=== PATIENT | male | born 1975 | race Caucasian/White ===

== ENCOUNTER 2016-11-22 07:52 | Observation (INO) ==
[2016-11-22] MEDS ORDERED: *HR* Morphine 2 MG/ML SYRINGE IVP ONE (08:10)
[2016-11-22] MEDS ORDERED: Ondansetron 4 MG/2 ML VIAL IV ONE (08:10)
[2016-11-22] MEDS ORDERED: 0.9 % Sodium Chloride 1,000 ML IVC ONE ×2 (08:10→13:42)
--- NOTE | 2016-11-22 08:18 | Emergency Department Note ---
Disposition Clinical Impression: Cholecystitis Disposition: Admitted As Inpatient Condition: Undetermined Time of Disposition: 19:05 Abdominal Pain HPI - General Chief Complaint: ED Abdominal Pain Stated Complaint: Abdominal Pain Time Seen by Provider: 11/22/16 07:53 Source: patient, EMS Mode of arrival: EMS Limitations: no limitations Nursing Notes Reviewed: Yes Vital Signs Reviewed: Yes - History of Present Illness HPI Narrative: 41-year-old male with history of chronic pancreatitis arrives to [facility] emergency department complaining of periumbilical pain that began yesterday. The patient states he has had 2 episodes of vomiting since then. The patient does admit to subjective fever and chills. The patient denies any diarrhea, chest pain, difficulty breathing, focalized weakness, cough , dysuria. The patient does state that he has had chronic pancreatitis in the past and has received multiple stents for this as well. The patient was also noted to have cholelithiasis on previous CT scan. The patient states he has had no appetite since STARTED. The patient states the pain feels similar to character to his pancreatitis pain but states it is in a different location than previous. In addition the patient has no other complaints at this time. Pt Subjective Complaint: abdominal pain Onset (ago): day(s) (1) Consistency: constant, Worsening Location: periumbilical Pain Severity: moderate Pain Scale: 8 Quality: aching, sharp Radiation: L flank Migration to: no migration Improves with: nothing Worsens with: nothing Context: history of similar episodes Associated symptoms: Reports: nausea, vomiting, fever, chills Treatments prior to arrival: prescription analgesics - Related Data Home Medications Medication Instructions Recorded Confirmed Ascorbic Acid [Vitamin C] 1,000 mg PO DAILY 07/04/16 11/22/16 Omeprazole 20 mg PO TID 07/04/16 11/22/16 Oxycodone HCl/Acetaminophen 1 tab PO Q4-6H PRN 07/04/16 11/22/16 [Percocet 5-325 mg Tablet] Vitamin A 10,000 unit PO DAILY 07/04/16 11/22/16 Vitamin B Complex 1 cap PO DAILY 07/04/16 11/22/16 Previous Rx's Medication Instructions Recorded Sucralfate [Carafate] 1 gm PO QIDAC #120 tablet 07/04/16 Allergies Allergy/AdvReac Type Severity Reaction Status Date / Time No Known Allergies Allergy Verified 07/04/16 08:39 Review of Systems: Review of Systems Constitutional: Admits to fevers, chills, HEENT: Denies headache, blurry vision, Respiratory: Denies cough, sputum change, hemoptysis, dyspnea Cardiac: Denies chest pain, pressure, palpitations, dyspnea on exertion, pedal edema Gastrointestinal: Denies changes in bowel habits, hematemesis, hematochezia, admits to nausea and vomiting, abdominal pain Genitourinary: Denies dysuria, hematuria, nocturia, change in frequency, urgency, incontinence Neurologic: Denies headaches, dizziness, syncope, focalized weakness, paraesthesias, weakness Musculoskeletal: Denies back pain, joint pain, admits to myalgias All systems ED: reviewed and negative except as stated. Abdominal Pain PMH - Past Medical History Medical history: Reports: arthritis, cirrhosis, GERD, liver disease, osteoporosis, other (Chronic pancreatitis, cholelithiasis) Male Surgical History: Reports: other (Pancreatic stents) Psychiatric history: Reports: no psych history - Social History Smoking status: Current some day smoker Alcohol use: Reports: none Drug use: Reports: none Physical Exam Physical Exam: General: Patient alert, no acute distress, not lethargic HEENT: Head normal inspection, atraumatic, PERRLA, oropharynx grossly intact and normal, trachea midline, no JVD Chest: Nontraumatic, nontender, normal chest rise CV: RRR with no murmurs, rubs, gallops Respiratory: Lungs clear to auscultation bilaterally, no rales, rhonchi, wheezes. Abdomen: Normal inspection, Normal bowel sounds 4 quadrants, patient has moderate tenderness to periumbilical region as well as left flank and left upper quadrant. The patient has a negative Adhikari sign, negative McBurney's. There is no rigidity or rebound tenderness noted. Subjective guarding noted. : Patient deferred Extremities: Normal inspection, full range of motion, appropriate pulses, capillary refill under 2 seconds Neurological: Patient alert and oriented 3, cranial nerves II through XII grossly intact, GCS 15 Skin: Warm, intact, no rashes noted - General General appearance: alert, in no apparent distress Course Course Narrative: Patient's lipase is not elevated this time. The patient does have a mildly elevated total bili at 1.5 as well as a mildly elevated AST. This is likely related to the patient's chronic cirrhosis and/or his vomiting. The patient does have a mildly elevated white blood cell count which could also be in part due to his vomiting. We will obtain CT scan of the patient's abdomen with IV contrast to determine if there is any other etiology for the patient's pain. Pain is controlled with IV morphine and nausea is controlled with Zofran. The patient does state that he did have a small amount of itching with the morphine so he was given IV Benadryl. In addition to this the patient was given IV fluids. Vital Signs Temperature 98.3 F 11/22/16 07:53 Pulse Rate 99 11/22/16 07:53 Respiratory Rate 18 11/22/16 07:53 Blood Pressure 117/78 11/22/16 07:53 O2 Sat by Pulse Oximetry 99 11/22/16 07:53 Temperature 98 F 11/22/16 14:20 Pulse Rate 83 11/22/16 14:20 Respiratory Rate 16 11/22/16 14:20 Blood Pressure 108/70 11/22/16 14:20 O2 Sat by Pulse Oximetry 99 11/22/16 14:20 Oxygen Delivery Oxygen Delivery Room Air Abdominal Pain - Lab Data Result diagrams: 11/22/16 08:14 11/22/16 08:14 Lab Results 11/22/16 11/22/16 11/22/16 Range/Units 08:14 08:14 08:14 WBC 14.8 H (4.3-11.1) K/mcL RBC 4.33 (4.19-5.50) M/mcL Hgb 14.6 (12.9-16.9) g/dL Hct 43.2 (37.5-50.1) % MCV 99.8 (83.0-100.0) fL MCH 33.7 H (28.0-33.3) pg MCHC 33.8 (31.6-35.5) g/dL RDW 12.7 (11.5-14.5) % Plt Count 176 (140-400) K/mcL MPV 10.2 (9.4-12.4) fL Immature Gran % 0.5 (0-4) % Seg Neutrophils % 78.8 % Lymphocytes % 14.0 % Monocytes % 6.0 % Eosinophils % 0.4 % Basophils % 0.3 % Neutrophils # 11.7 H (1.6-8.9) K/mcL Lymphocytes # 2.1 (0.6-4.6) K/mcL Monocytes # 0.9 (0.0-1.3) K/mcL Eosinophils # 0.1 (0.0-0.6) K/mcL Basophils # 0.1 (0.0-0.2) K/mcL PT (9.4-12.1) Seconds INR APTT (26.0-36.0) Seconds Sodium 135 L (136-145) mEq/L Potassium 3.9 (3.5-4.5) mEq/L Chloride 102 (98-109) mEq/L Carbon Dioxide 26 (19-29) mEq/L BUN 4 L (8-26) mg/dL Creatinine 0.57 L (0.72-1.25) mg/dL Est GFR ( Amer) > 60 (> 60) Est GFR (Non-Af Amer) > 60 (> 60) BUN/Creatinine Ratio 7 (6-26) Glucose 105 H (70-99) mg/dL Calculated Osmolality 277 L (280-300) Calcium 8.6 (8.6-10.8) mg/dL Total Bilirubin 1.5 H (0.2-1.2) mg/dL Direct Bilirubin 0.9 H (0.0-0.5) mg/dL AST 38 H (5-34) Units/L ALT 25 (0-55) Units/L Alkaline Phosphatase 203 H (38-126) Units/L Troponin I 0.01 (0-0.03) ng/mL Serum Total Protein 7.0 (6.0-8.3) g/dL Albumin 2.3 L (3.5-5.0) g/dL Globulin 4.7 H (2.4-3.5) g/dL Albumin/Globulin Ratio 0.5 L (1.1-2.2) Lipase 19 (8-78) Units/L Urine Color (Yellow) Urine Clarity (Clear) Urine pH (5.0-8.0) pH Units Ur Specific [place] (1.010-1.025) Urine Protein (Neg-Trace) mg/dL Urine Glucose (UA) (Normal) mg/dL Urine Ketones (Negative) mg/dL Urine Blood (Negative) Urine Nitrite (Negative) Urine Bilirubin (Negative) Urine Urobilinogen (Normal) mg/dL Ur Leukocyte Esterase (Negative) Urine Microscopic RBC (0-3) per hpf Urine Microscopic WBC (0-3) per hpf Ur Squamous Epith Cells (None-Few) per lpf Amorphous Sediment (Few) Urine Bacteria (None-Few) per hpf Hyaline Casts (None-Few) per lpf Urine Mucus (Few) Ur Culture Indicated? (NO) 11/22/16 11/22/16 Range/Units 08:14 08:35 WBC (4.3-11.1) K/mcL RBC (4.19-5.50) M/mcL Hgb (12.9-16.9) g/dL Hct (37.5-50.1) % MCV (83.0-100.0) fL MCH (28.0-33.3) pg MCHC (31.6-35.5) g/dL RDW (11.5-14.5) % Plt Count (140-400) K/mcL MPV (9.4-12.4) fL Immature Gran % (0-4) % Seg Neutrophils % % Lymphocytes % % Monocytes % % Eosinophils % % Basophils % % Neutrophils # (1.6-8.9) K/mcL Lymphocytes # (0.6-4.6) K/mcL Monocytes # (0.0-1.3) K/mcL Eosinophils # (0.0-0.6) K/mcL Basophils # (0.0-0.2) K/mcL PT 14.0 H (9.4-12.1) Seconds INR 1.3 APTT 31.2 (26.0-36.0) Seconds Sodium (136-145) mEq/L Potassium (3.5-4.5) mEq/L Chloride (98-109) mEq/L Carbon Dioxide (19-29) mEq/L BUN (8-26) mg/dL Creatinine (0.72-1.25) mg/dL Est GFR ( Amer) (> 60) Est GFR (Non-Af Amer) (> 60) BUN/Creatinine Ratio (6-26) Glucose (70-99) mg/dL Calculated Osmolality (280-300) Calcium (8.6-10.8) mg/dL Total Bilirubin (0.2-1.2) mg/dL Direct Bilirubin (0.0-0.5) mg/dL AST (5-34) Units/L ALT (0-55) Units/L Alkaline Phosphatase (38-126) Units/L Troponin I (0-0.03) ng/mL Serum Total Protein (6.0-8.3) g/dL Albumin (3.5-5.0) g/dL Globulin (2.4-3.5) g/dL Albumin/Globulin Ratio (1.1-2.2) Lipase (8-78) Units/L Urine Color [place] A (Yellow) Urine Clarity Cloudy A (Clear) Urine pH 6.0 (5.0-8.0) pH Units Ur Specific [place] 1.026 H (1.010-1.025) Urine Protein 30 H (Neg-Trace) mg/dL Urine Glucose (UA) Normal (Normal) mg/dL Urine Ketones 15 H (Negative) mg/dL Urine Blood Negative (Negative) Urine Nitrite Negative (Negative) Urine Bilirubin Small H (Negative) Urine Urobilinogen Normal (Normal) mg/dL Ur Leukocyte Esterase Trace H (Negative) Urine Microscopic RBC 0-3 (0-3) per hpf Urine Microscopic WBC 0-3 (0-3) per hpf Ur Squamous Epith Cells Moderate H (None-Few) per lpf Amorphous Sediment Many H (Few) Urine Bacteria None Seen (None-Few) per hpf Hyaline Casts None Seen (None-Few) per lpf Urine Mucus Many H (Few) Ur Culture Indicated? YES A (NO) - EKG Data EKG attestation: Yes I reviewed and interpreted this EKG. EKG results narrative: Heart rate 93 bpm period. 148 ms. QTc 413 ms. Normal axis. Normal sinus rhythm. No ST elevation or ST depression noted. EKG from 09/22/2015 similar in appearance with the exception of no inverted T waves noted as EKG on 2015. Attestation Statement - Attestation Attestation: I examined this patient and my medical decision-making was reviewed with the COMMAND AND CONTROL SYSTEMS INTEGRATOR/PA/Advanced Practice Nurse/Resident Physician. I agree with the documented findings, disposition and treatment plan as described except to the extent set forth below. Patient to the emergency department upon of epigastric abdominal pain. Onset yesterday. A couple episodes of vomiting as well. History of pancreatitis. He also has a history of gallstones. No fever. On examination is epigastric tenderness. His abdomen is soft. Plan. Labs CT and pain control.
[2016-11-22 08:22] LABS: Basophils # 0.1 K/mcL (0.0-0.2); Basophils % 0.3 %; Eosinophils # 0.1 K/mcL (0.0-0.6); Eosinophils % 0.4 %; Hematocrit 43.2 % (37.5-50.1); Hemoglobin 14.6 g/dL (12.9-16.9); Immature Granulocytes % 0.5 % (0-4); Lymphocytes # 2.1 K/mcL (0.6-4.6); Mean Corpuscular HGB Conc 33.8 g/dL (31.6-35.5); Mean Corpuscular Hemoglobin 33.7 pg (28.0-33.3); Mean Corpuscular Volume 99.8 fL (83.0-100.0); Mean Platelet Volume 10.2 fL (9.4-12.4); Monocytes # 0.9 K/mcL (0.0-1.3); Neutrophils # 11.7 K/mcL (1.6-8.9); Platelet Count 176 K/mcL (140-400); Red Blood Count 4.33 M/mcL (4.19-5.50); Red Cell Distribution Width 12.7 % (11.5-14.5); Segmented Neutrophils % 78.8 %
[2016-11-22 08:36] LABS: Alanine Aminotransferase 25 Units/L (0-55); Albumin 2.3 g/dL (3.5-5.0); Albumin/Globulin Ratio 0.5 (1.1-2.2); Alkaline Phosphatase 203 Units/L (38-126); Aspartate Amino Transferase 38 Units/L (5-34); BUN/Creatinine Ratio 7 (6-26); Bilirubin,Total 1.5 mg/dL (0.2-1.2); Blood Urea Nitrogen 4 mg/dL (8-26); Calcium 8.6 mg/dL (8.6-10.8); Carbon Dioxide 26 mEq/L (19-29); Chloride 102 mEq/L (98-109); Globulin 4.7 g/dL (2.4-3.5); Glucose 105 mg/dL (70-99); Lipase 19 Units/L (8-78); Osmolality,Calculated 277 (280-300); Potassium 3.9 mEq/L (3.5-4.5); Sodium 135 mEq/L (136-145); eGFR For African Americans > 60 (> 60); eGFR For Non-African Americans > 60 (> 60)
[2016-11-22 08:40] LABS: Bilirubin,Urine Small (Negative); Blood,Urine Negative (Negative); Clarity,Urine Cloudy (Clear); Color,Urine Orange (Yellow); Glucose,Urine (UA) Normal (Normal); Ketones,Urine 15 mg/dL (Negative); Leukocyte Esterase,Urine Trace (Negative); Nitrite,Urine Negative (Negative); Protein,Urine 30 mg/dL (Neg-Trace); Specific Gravity,Urine 1.026 (1.010-1.025); Urobilinogen,Urine Normal (Normal)
[2016-11-22 08:42] LABS: Bacteria,Urine None Seen per hpf (None-Few); Hyaline Casts,Urine None Seen per lpf (None-Few); RBC,Urine 0-3 per hpf (0-3); Squamous Epithelial Cell,Urine Moderate per lpf (None-Few); WBC,Urine 0-3 per hpf (0-3)
[2016-11-22 09:07] LABS: Amorphous Sediment,Urine Many (Few); Mucus,Urine Many (Few)
[2016-11-22 09:51] LABS: INR 1.3
[2016-11-22 09:54] LABS: Activated Partial Thrombo Time 31.2 Seconds (26.0-36.0)
[2016-11-22] MEDS ORDERED: *HR* Morphine 2 MG/ML SYRINGE IV ONE (12:55)
[2016-11-22] MEDS ORDERED: Piperacillin/Tazobactam 3.375 GM in D5% in Water (Mini-Bag+) 100 ML IVPB ONE (12:57)
[2016-11-22] MEDS ORDERED: Naloxone 0.4 MG/ML INJ IVP PRN (15:02)
[2016-11-22] MEDS ORDERED: 0.9 % Sodium Chloride 1,000 ML ONE (15:32)
[2016-11-22] MEDS: *HR* Morphine 2 MG/ML SYRINGE IVP PRN ×3 (15:41→23:40)
[2016-11-22] MEDS: 0.9 % Sodium Chloride 1,000 ML IVC SCH ×2 (15:41→23:41)
[2016-11-22] MEDS: Ondansetron 4 MG/2 ML VIAL IVP PRN (15:41)
--- NOTE | 2016-11-22 15:57 | General Surgery Consult Note ---
<Oleksandr Chanel Matt - Last Filed: 11/22/16 16:08> Date of Encounter: 11/22/16 Time of Encounter: 15:46 Assessment and Plan (1) Cholecystitis Current Visit: Yes Status: Suspected Pt. with abdominal pain n/v, acute onset. CT abd/pel: cholelithiasis, mild gallbladder thickening, mild pericholecystic fluid. stable pancreatic pseudocysts in tail of pancreas GB US: Cholelithiasis with gallbladder wall thickening and a mild amount of pericholecystic fluid. These findings are suggestive of cholecystitis. Pt. also has cirrhosis and a history of chronic pancreatitis Mild elevation of liver enzymes AST: 38 ALT: 25 alk phos: 203 Tbili 1.5, Direct bili: 0.9 wbc: 14.8 lipase: 19 As he has radiographic/ultrasound findings of cholelithiasis there is a possibility he does have cholecsytitis with the imaging findings and the elevated WBC, however with his history of cirrhosis and chronic pancreatitis it is possible his abdominal pain is not related to gallstone cholecystits, but rather to pancreatitis without lipase elevation or from cirrhosis. At this time we will treat him with antibiotics, clear liquids, anti-emetics and pain control. If there is no improvement in his symptoms will likely proceed with a HIDA scan or MRCP to see if there is a stone in his biliary system causing cholecystits. (2) Chronic pancreatitis Current Visit: Yes Status: Acute From alcohol abuse. States he has stopped drinking alcohol recently. Lipase of 19 Qualifiers: Pancreatitis type: alcohol induced Qualified Code(s): K86.0 - Alcohol- induced chronic pancreatitis (3) Cirrhosis Current Visit: No Status: Chronic Qualifiers: Hepatic cirrhosis type: alcoholic cirrhosis Ascites presence: without ascites Qualified Code(s): K70.30 - Alcoholic cirrhosis of liver without ascites History of Present Illness Consult date: 11/22/16 Reason for consult: abdominal pain Requesting physician: Maurizio Becker History of present illness: Mr. Carlisle is a 41 yo M who presented to [facility] ED this am with abdominal pain, nausea, and vomiting. He has a history which is significant for chronic pancreatitis, cirrhosis, tobacco abuse, alcohol abuse. He reports that yesterday afternoon after eating a fish sandwich he became very nauseated and began vomiting. He has vomited 10 times over the last 24 hours. He reports nonbilious non bloody emesis. This is also associated with abdominal pain, located in the mid epigastrum, does not radiate, which he rates 5/10. He states this pain resembles the pain he has had in the past with his pancreatitis but this time the pain does not radiate into his back, which it has with his pancreatitis. He reports subjective fevers, nausea, vomiting, diaphoresis. He denies cp, sob, diarrhea/constipation, dysuria, melena, hemoptysis, hematochezia. Past Med Surg Social Fam HX - Past Medical History Medical history: arthritis, cirrhosis, GERD, liver disease, osteoporosis, other Psychiatric history: no psych history - Past Surgical History Surgical History: other (Upper endoscopies. ERCP with pancreatic ductal stent placement.) - Social History Smoking Status: Current some day smoker Packs per day: 1/2 Smokeless Tobacco Status: No Alcohol use: none Drug use: none - Family History Father Living Status: Hx Family Cancer: Yes Mother Living Status: Still Living Medications and Allergies Ascorbic Acid [Vitamin C] 1,000 mg PO DAILY 07/04/16 [History] Omeprazole 20 mg PO TID 07/04/16 [History] Oxycodone HCl/Acetaminophen [Percocet 5-325 mg Tablet] 1 tab PO Q4-6H PRN [History] Sucralfate [Carafate] 1 gm PO QIDAC #120 tablet 07/04/16 [Rx] Vitamin A 10,000 unit PO DAILY 07/04/16 [History] Vitamin B Complex 1 cap PO DAILY 07/04/16 [History] Allergies No Known Allergies Allergy (Verified 07/04/16 08:39) Review of Systems All systems PM: reviewed and no additional remarkable complaints except as stated All systems PM: A 10-system review of systems was performed and is negative for pertinent findings except as documented above in the HPI. - Constitutional anorexia, fever(s) (subjective) - Cardiovascular no chest pain - Respiratory no dyspnea, no hemoptysis - Gastrointestinal abdominal pain, cramping, nausea, vomiting, no coffee ground emesis, no diarrhea , no melena - Neurological no confusion General Surgery Exam Initial Vital Signs Temp Pulse Resp BP Pulse Ox 98.3 F 99 18 117/78 99 11/22/16 07:53 11/22/16 07:53 11/22/16 07:53 11/22/16 07:53 11/22/16 07:53 Exam Initial Vital Signs Temp Pulse Resp BP Pulse Ox 98.3 F 99 18 117/78 99 11/22/16 07:53 11/22/16 07:53 11/22/16 07:53 11/22/16 07:53 11/22/16 07:53 - General physical appearance well developed, well nourished, no distress - Neck trachea midline - Respiratory wheezing: right - Abdomen Abdomen: soft, tender (epigastric), bowel sounds - Neurologic CN 2-12 grossly intact - Psychiatric oriented to time, oriented to person, oriented to place Results - Labs 11/22/16 08:14 11/22/16 08:14 Abnormal lab results WBC 14.8 K/mcL (4.3-11.1) H 11/22/16 08:14 MCH 33.7 pg (28.0-33.3) H 11/22/16 08:14 Neutrophils # 11.7 K/mcL (1.6-8.9) H 11/22/16 08:14 PT 14.0 Seconds (9.4-12.1) H 11/22/16 08:14 Sodium 135 mEq/L (136-145) L 11/22/16 08:14 BUN 4 mg/dL (8-26) L 11/22/16 08:14 Creatinine 0.57 mg/dL (0.72-1.25) L 11/22/16 08:14 Glucose 105 mg/dL (70-99) H 11/22/16 08:14 Calculated Osmolality 277 (280-300) L 11/22/16 08:14 Total Bilirubin 1.5 mg/dL (0.2-1.2) H 11/22/16 08:14 AST 38 Units/L (5-34) H 11/22/16 08:14 Alkaline Phosphatase 203 Units/L (38-126) H 11/22/16 08:14 Albumin 2.3 g/dL (3.5-5.0) L 11/22/16 08:14 Globulin 4.7 g/dL (2.4-3.5) H 11/22/16 08:14 Albumin/Globulin Ratio 0.5 (1.1-2.2) L 11/22/16 08:14 Urine Color [place] (Yellow) A 11/22/16 08:35 Urine Clarity Cloudy (Clear) A 11/22/16 08:35 Ur Specific [place] 1.026 (1.010-1.025) H 11/22/16 08:35 Urine Protein 30 mg/dL (Neg-Trace) H 11/22/16 08:35 Urine Ketones 15 mg/dL (Negative) H 11/22/16 08:35 Urine Bilirubin Small (Negative) H 11/22/16 08:35 Ur Leukocyte Esterase Trace (Negative) H 11/22/16 08:35 Ur Squamous Epith Cells Moderate per lpf (None-Few) H 11/22/16 08:35 Amorphous Sediment Many (Few) H 11/22/16 08:35 Urine Mucus Many (Few) H 11/22/16 08:35 Ur Culture Indicated? YES (NO) A 11/22/16 08:35 All other labs normal. Consult Discharge Plan - Plan Referrals: Josiah Jimenez Jr, MD [Primary Care Provider] - <Mikey Gutierrez M - Last Filed: 11/23/16 07:26> Review of Systems All systems PM: A 10-system review of systems was performed and is negative for pertinent findings except as documented above in the HPI. General Surgery Exam Initial Vital Signs Temp Pulse Resp BP Pulse Ox 98.3 F 99 18 117/78 99 11/22/16 07:53 11/22/16 07:53 11/22/16 07:53 11/22/16 07:53 11/22/16 07:53 Exam Initial Vital Signs Temp Pulse Resp BP Pulse Ox 98.3 F 99 18 117/78 99 11/22/16 07:53 11/22/16 07:53 11/22/16 07:53 11/22/16 07:53 11/22/16 07:53 Results - Labs 11/23/16 04:51 11/23/16 04:51 Abnormal lab results RBC 3.46 M/mcL (4.19-5.50) L 11/23/16 04:51 Hgb 11.6 g/dL (12.9-16.9) L D 11/23/16 04:51 Hct 34.9 % (37.5-50.1) L 11/23/16 04:51 MCV 100.9 fL (83.0-100.0) H 11/23/16 04:51 MCH 33.5 pg (28.0-33.3) H 11/23/16 04:51 PT 14.0 Seconds (9.4-12.1) H 11/22/16 08:14 BUN 4 mg/dL (8-26) L 11/23/16 04:51 Creatinine 0.53 mg/dL (0.72-1.25) L 11/23/16 04:51 Glucose 110 mg/dL (70-99) H 11/23/16 04:51 POC Glucose 95 (58-89) H 11/23/16 05:52 Calcium 7.6 mg/dL (8.6-10.8) L 11/23/16 04:51 Total Bilirubin 1.4 mg/dL (0.2-1.2) H 11/23/16 04:51 Direct Bilirubin 0.9 mg/dL (0.0-0.5) H 11/23/16 04:51 AST 40 Units/L (5-34) H 11/23/16 04:51 Alkaline Phosphatase 161 Units/L (38-126) H 11/23/16 04:51 Serum Total Protein 5.4 g/dL (6.0-8.3) L D 11/23/16 04:51 Albumin 1.7 g/dL (3.5-5.0) L D 11/23/16 04:51 Globulin 3.7 g/dL (2.4-3.5) H 11/23/16 04:51 Albumin/Globulin Ratio 0.5 (1.1-2.2) L 11/23/16 04:51 Urine Color [place] (Yellow) A 11/22/16 08:35 Urine Clarity Cloudy (Clear) A 11/22/16 08:35 Ur Specific [place] 1.026 (1.010-1.025) H 11/22/16 08:35 Urine Protein 30 mg/dL (Neg-Trace) H 11/22/16 08:35 Urine Ketones 15 mg/dL (Negative) H 11/22/16 08:35 Urine Bilirubin Small (Negative) H 11/22/16 08:35 Ur Leukocyte Esterase Trace (Negative) H 11/22/16 08:35 Ur Squamous Epith Cells Moderate per lpf (None-Few) H 11/22/16 08:35 Amorphous Sediment Many (Few) H 11/22/16 08:35 Urine Mucus Many (Few) H 11/22/16 08:35 Ur Culture Indicated? YES (NO) A 11/22/16 08:35 Diabetes panel 11/23/16 Range/Units 04:51 Sodium 136 (136-145) mEq/L Potassium 3.7 (3.5-4.5) mEq/L Chloride 106 (98-109) mEq/L Carbon Dioxide 24 (19-29) mEq/L BUN 4 L (8-26) mg/dL Creatinine 0.53 L (0.72-1.25) mg/dL Glucose 110 H (70-99) mg/dL Calcium 7.6 L (8.6-10.8) mg/dL AST 40 H (5-34) Units/L ALT 21 (0-55) Units/L Alkaline Phosphatase 161 H (38-126) Units/L Albumin 1.7 L D (3.5-5.0) g/dL Calcium panel 11/23/16 Range/Units 04:51 Calcium 7.6 L (8.6-10.8) mg/dL Albumin 1.7 L D (3.5-5.0) g/dL Pituitary panel 11/23/16 Range/Units 04:51 Sodium 136 (136-145) mEq/L Potassium 3.7 (3.5-4.5) mEq/L Chloride 106 (98-109) mEq/L Carbon Dioxide 24 (19-29) mEq/L BUN 4 L (8-26) mg/dL Creatinine 0.53 L (0.72-1.25) mg/dL Glucose 110 H (70-99) mg/dL Calcium 7.6 L (8.6-10.8) mg/dL Adrenal panel 11/23/16 Range/Units 04:51 Sodium 136 (136-145) mEq/L Potassium 3.7 (3.5-4.5) mEq/L Chloride 106 (98-109) mEq/L Carbon Dioxide 24 (19-29) mEq/L BUN 4 L (8-26) mg/dL Creatinine 0.53 L (0.72-1.25) mg/dL Glucose 110 H (70-99) mg/dL Calcium 7.6 L (8.6-10.8) mg/dL Total Bilirubin 1.4 H (0.2-1.2) mg/dL AST 40 H (5-34) Units/L ALT 21 (0-55) Units/L Alkaline Phosphatase 161 H (38-126) Units/L Albumin 1.7 L D (3.5-5.0) g/dL All other labs normal. - Attending Attestation I examined this patient and my medical decision-making was reviewed with the LAND CLEARER/PA/Advanced Practice Nurse/Resident Physician. I agree with the documented findings, disposition and treatment plan as described except to the extent set forth below. I reviewed the physical examination history findings with the internet retailer present. Patient has had a several day history of epigastric abdominal pain with nausea and vomiting. Positive pain to palpation in epigastrium with minimal pain to palpation right upper quadrant on exam. I personally reviewed the CT scan and ultrasound images as well as reports. Given his history of alcoholic cirrhosis , chronic pancreatitis, and cholelithiasis with elevated AST and ALT and bilirubin of 1.5 and we would be most appropriate to watch his abdominal exam and repeat his LFTs in the morning. If his bilirubin starts to rise even further than he will need either a HIDA scan or MRCP. His comorbidities make the determination of his abdominal pain somewhat challenging. His cirrhosis makes the possibility for treatment for his presumed cholecystitis potentially problematic. We will follow closely with you.
[2016-11-22 16:10] LABS: Bilirubin,Direct 0.9 mg/dL (0.0-0.5)
--- NOTE | 2016-11-22 17:22 | Internal Med History&Physical ---
<Lynn Cox M - Last Filed: 11/23/16 00:06> Date of Encounter: 11/22/16 Time of Encounter: 17:18 Assessment and Plan (1) Cholecystitis Current visit: Yes Status: Suspected Patient presented with abdominal pain, nausea and vomiting. CT abdomen showed gallstones within the gall bladder with borderline gallbladder wall thickening and a mild amount of pericholecystic fluid, which could represent cholecystitis. Surgery consulted, they will follow with patient, no plan for surgery at this point. clear liquid diet IV fluids 0.9NS at 125 Carbon and morphine for pain control zofran for nausea. (2) Abdominal pain Current visit: No Status: Acute Patient with abdominal pain secondary to suspected cholecystitis. Carbon and morphine PRN for pain Narcan PRN for respiratory depression Qualifiers: Abdominal location: epigastric Qualified Code(s): R10.13 - Epigastric pain (3) Cirrhosis Current visit: No Status: Chronic Patient with diagnosis of alcoholic cirrhosis and follows with a log peeler at [facility]. Reports he quit drinking years ago. CT abdomen shows mild intrahepatic biliary ductal dilatation, unchanged from previous exam, but the liver is otherwise unremarkable. RUQ ultrasound reported the liver demonstrates normal echogenicity without evidence of intrahepatic biliary ductal dilatation. It is unlikely patient's abdominal pain is due to cirrhosis. Will check Hep c Ab. Qualifiers: Hepatic cirrhosis type: alcoholic cirrhosis Ascites presence: without ascites Qualified Code(s): K70.30 - Alcoholic cirrhosis of liver without ascites (4) Chronic pancreatitis Current visit: Yes Status: Acute Patient with history of chronic pancreatitis. Lipase normal. CT of abdomen shows scattered pancreatic parenchymal calcifications, pancreatic ductal dilatation, and peripancratic fat necrosis and scarring, unchanged from prior exams. There is no evidence of acute peripancreatic inflammation to suggest acute on chronic pancreatitis. Qualifiers: Pancreatitis type: alcohol induced Qualified Code(s): K86.0 - Alcohol- induced chronic pancreatitis (5) DVT prophylaxis Current visit: Yes Status: Acute encourage ambulation anti-embolic stockings lovenox 40mg SQ daily Internal Medicine - H&P: HPI Chief complaint: abdominal pain Admitted From: Emergency Dept Plans for Post Hospital Care: Home History of present illness: Mr. Carlisle is a 41 year old male history of chronic pancreatitis, alcoholic cirrhosis, and GERD presented to the emergency department today with complaints of abdominal pain, nausea and vomiting. He reports the abdominal pain started yesterday at about noon right after he had eaten lunch and has progressively gotten worse he started having nausea and vomiting in the evening, he also reports subjective fever, chills. He describes the pain as aching in the middle of his abdomen progressively getting worse. He denies any headache or lightheadedness, chest pain, palpitations, shortness of breath, diarrhea. Evaluation in the emergency department revealed elevated white count of 14.8. Troponin was -0.01. Lipase was normal. CT of the abdomen and pelvis showed findings consistent with chronic pancreatitis without evidence of acute pancreatitis, stable pseudocysts, cholelithiasis with mild gallbladder wall thickening and mild amount of pericholecystic fluid. Right upper quadrant ultrasound showed cholelithiasis with gallbladder wall thickening and mild amount of pericholecystic fluid suggestive of cholecystitis. Normal sonographic appearance of the liver, common bile duct, and right kidney, and chronic pancreatitis with 2 cm pseudocyst in the tail. UA was concerning for UTI, culture was sent. Patient was given 2 L bolus morphine for pain control and Zofran for nausea. He was started on Zosyn. Exam, patient is alert and oriented, in no acute distress. Heart is regular rate and rhythm, lungs are clear bilaterally to auscultation. He has mild tenderness to palpation of his upper abdomen within the right upper quadrant and left upper quadrant. Past Med Surg Social Fam HX - Past Medical History Medical history: arthritis, cirrhosis, GERD, liver disease, osteoporosis, other Psychiatric history: no psych history - Past Surgical History Surgical History: other (Upper endoscopies. ERCP with pancreatic ductal stent placement.) - Social History Smoking Status: Current some day smoker Packs per day: 1/2 Smokeless Tobacco Status: No Alcohol use: none Drug use: none - Family History Father Living Status: Hx Family Cancer: Yes Mother Living Status: Still Living Internal Medicine - H&P: Meds Ascorbic Acid [Vitamin C] 1,000 mg PO DAILY 07/04/16 [History] Omeprazole 20 mg PO TID 07/04/16 [History] Oxycodone HCl/Acetaminophen [Percocet 5-325 mg Tablet] 1 tab PO Q4-6H PRN [History] Sucralfate [Carafate] 1 gm PO QIDAC #120 tablet 07/04/16 [Rx] Vitamin A 10,000 unit PO DAILY 07/04/16 [History] Vitamin B Complex 1 cap PO DAILY 07/04/16 [History] Allergies No Known Allergies Allergy (Verified 07/04/16 08:39) All Systems PM: A 10-system review of systems was performed and is negative for pertinent findings except as documented above in the HPI. - Constitutional Constitutional: chills, fever(s), no night sweats - EENT Eyes: no change in vision, no discharge, no pain, no photophobia Ears: no ear discharge, no ear pain, no tinnitus Nose, mouth and throat: no dysphagia, no nasal discharge, no neck pain, no sore throat - Cardiovascular Cardiovascular ROS IM: no chest pain, no diaphoresis, no dyspnea, no lightheadedness, no palpitations, no syncope - Respiratory Respiratory: no cough, no dyspnea, no wheezing, no excessive phlegm production - Gastrointestinal Gastrointestinal: abdominal pain, nausea, vomiting, no diarrhea, no hematemesis , no hematochezia, no melena - Musculoskeletal Musculoskeletal ROS IM: no numbness, no tingling - Integumentary Integumentary IM: no rash, no unusual bruising - Neurological Neurological ROS: no confusion, no convulsions, no focal weakness, no numbness, no tingling, no tremor(s) - Hematologic/Lymphatic Hematologic/Lymphatic: no easy bruising - Constitutional Vitals: Temp Pulse Resp BP Pulse Ox 98 F 83 16 108/70 99 11/22/16 14:20 11/22/16 14:20 11/22/16 14:20 11/22/16 14:20 11/22/16 14:20 General appearance: Present: A&O X 3, pleasant, no acute distress - Head Head exam: Present: atraumatic, normocephalic - Eye Eye exam: Present: PERRL, conjuntiva pink, sclera anicteric Pupils: Present: PERRL - Neck Neck exam general surgery: Present: supple, trachea midline. Absent: lymphadenopathy - Respiratory Respiratory exam: Present: CTAB. Absent: accessory muscle use, rales, rhonchi, wheezes - Cardiovascular Cardiovascular exam: Present: RRR, +S1, +S2. Absent: diastolic murmur, gallop, rubs, systolic murmur - GI/Abdominal GI/Abdominal exam: Present: normal bowel sounds, soft, tenderness (mild tenderness to palpation in Bilateral upper quadrants), no peritoneal signs. Absent: distended - Extremities Exam Extremities exam: Present: warm, radial pulses palpable and symetrical. Absent : calf tenderness, cyanotic, pedal edema - Neurological Exam Neurological exam: Present: CN II-XII intact, oriented X3, no focal deficits. Absent: facial droop, speech deficit - Skin Skin exam: Present: dry, intact Internal Med - H&P Results - Labs CBC & Chem 7: 11/22/16 08:14 11/22/16 08:14 Labs: All Lab Results (24 Hours) 11/22/16 11/22/16 11/22/16 Range/Units 08:14 08:14 08:14 WBC 14.8 H (4.3-11.1) K/mcL RBC 4.33 (4.19-5.50) M/mcL Hgb 14.6 (12.9-16.9) g/dL Hct 43.2 (37.5-50.1) % MCV 99.8 (83.0-100.0) fL MCH 33.7 H (28.0-33.3) pg MCHC 33.8 (31.6-35.5) g/dL RDW 12.7 (11.5-14.5) % Plt Count 176 (140-400) K/mcL MPV 10.2 (9.4-12.4) fL Immature Gran % 0.5 (0-4) % Seg Neutrophils % 78.8 % Lymphocytes % 14.0 % Monocytes % 6.0 % Eosinophils % 0.4 % Basophils % 0.3 % Neutrophils # 11.7 H (1.6-8.9) K/mcL Lymphocytes # 2.1 (0.6-4.6) K/mcL Monocytes # 0.9 (0.0-1.3) K/mcL Eosinophils # 0.1 (0.0-0.6) K/mcL Basophils # 0.1 (0.0-0.2) K/mcL PT (9.4-12.1) Seconds INR APTT (26.0-36.0) Seconds Sodium 135 L (136-145) mEq/L Potassium 3.9 (3.5-4.5) mEq/L Chloride 102 (98-109) mEq/L Carbon Dioxide 26 (19-29) mEq/L BUN 4 L (8-26) mg/dL Creatinine 0.57 L (0.72-1.25) mg/dL Est GFR ( Amer) > 60 (> 60) Est GFR (Non-Af Amer) > 60 (> 60) BUN/Creatinine Ratio 7 (6-26) Glucose 105 H (70-99) mg/dL Calculated Osmolality 277 L (280-300) Lactic Acid (0.5-2.2) mmol/L Calcium 8.6 (8.6-10.8) mg/dL Total Bilirubin 1.5 H (0.2-1.2) mg/dL Direct Bilirubin 0.9 H (0.0-0.5) mg/dL AST 38 H (5-34) Units/L ALT 25 (0-55) Units/L Alkaline Phosphatase 203 H (38-126) Units/L Troponin I 0.01 (0-0.03) ng/mL Serum Total Protein 7.0 (6.0-8.3) g/dL Albumin 2.3 L (3.5-5.0) g/dL Globulin 4.7 H (2.4-3.5) g/dL Albumin/Globulin Ratio 0.5 L (1.1-2.2) Lipase 19 (8-78) Units/L Urine Color (Yellow) Urine Clarity (Clear) Urine pH (5.0-8.0) pH Units Ur Specific [place] (1.010-1.025) Urine Protein (Neg-Trace) mg/dL Urine Glucose (UA) (Normal) mg/dL Urine Ketones (Negative) mg/dL Urine Blood (Negative) Urine Nitrite (Negative) Urine Bilirubin (Negative) Urine Urobilinogen (Normal) mg/dL Ur Leukocyte Esterase (Negative) Urine Microscopic RBC (0-3) per hpf Urine Microscopic WBC (0-3) per hpf Ur Squamous Epith Cells (None-Few) per lpf Amorphous Sediment (Few) Urine Bacteria (None-Few) per hpf Hyaline Casts (None-Few) per lpf Urine Mucus (Few) Ur Culture Indicated? (NO) 11/22/16 11/22/16 11/22/16 Range/Units 08:14 08:35 15:38 WBC (4.3-11.1) K/mcL RBC (4.19-5.50) M/mcL Hgb (12.9-16.9) g/dL Hct (37.5-50.1) % MCV (83.0-100.0) fL MCH (28.0-33.3) pg MCHC (31.6-35.5) g/dL RDW (11.5-14.5) % Plt Count (140-400) K/mcL MPV (9.4-12.4) fL Immature Gran % (0-4) % Seg Neutrophils % % Lymphocytes % % Monocytes % % Eosinophils % % Basophils % % Neutrophils # (1.6-8.9) K/mcL Lymphocytes # (0.6-4.6) K/mcL Monocytes # (0.0-1.3) K/mcL Eosinophils # (0.0-0.6) K/mcL Basophils # (0.0-0.2) K/mcL PT 14.0 H (9.4-12.1) Seconds INR 1.3 APTT 31.2 (26.0-36.0) Seconds Sodium (136-145) mEq/L Potassium (3.5-4.5) mEq/L Chloride (98-109) mEq/L Carbon Dioxide (19-29) mEq/L BUN (8-26) mg/dL Creatinine (0.72-1.25) mg/dL Est GFR ( Amer) (> 60) Est GFR (Non-Af Amer) (> 60) BUN/Creatinine Ratio (6-26) Glucose (70-99) mg/dL Calculated Osmolality (280-300) Lactic Acid 1.1 (0.5-2.2) mmol/L Calcium (8.6-10.8) mg/dL Total Bilirubin (0.2-1.2) mg/dL Direct Bilirubin (0.0-0.5) mg/dL AST (5-34) Units/L ALT (0-55) Units/L Alkaline Phosphatase (38-126) Units/L Troponin I (0-0.03) ng/mL Serum Total Protein (6.0-8.3) g/dL Albumin (3.5-5.0) g/dL Globulin (2.4-3.5) g/dL Albumin/Globulin Ratio (1.1-2.2) Lipase (8-78) Units/L Urine Color [place] A (Yellow) Urine Clarity Cloudy A (Clear) Urine pH 6.0 (5.0-8.0) pH Units Ur Specific [place] 1.026 H (1.010-1.025) Urine Protein 30 H (Neg-Trace) mg/dL Urine Glucose (UA) Normal (Normal) mg/dL Urine Ketones 15 H (Negative) mg/dL Urine Blood Negative (Negative) Urine Nitrite Negative (Negative) Urine Bilirubin Small H (Negative) Urine Urobilinogen Normal (Normal) mg/dL Ur Leukocyte Esterase Trace H (Negative) Urine Microscopic RBC 0-3 (0-3) per hpf Urine Microscopic WBC 0-3 (0-3) per hpf Ur Squamous Epith Cells Moderate H (None-Few) per lpf Amorphous Sediment Many H (Few) Urine Bacteria None Seen (None-Few) per hpf Hyaline Casts None Seen (None-Few) per lpf Urine Mucus Many H (Few) Ur Culture Indicated? YES A (NO) - Diagnostic Studies US - abdomen Additional comments: Gallbladder Ultrasound 11/22/16 10:22 IMPRESSION: 1. Cholelithiasis with gallbladder wall thickening and a mild amount of pericholecystic fluid. These findings are suggestive of cholecystitis. 2. Chronic pancreatitis with an approximate 2 cm pseudocyst within the pancreatic tail. 3. Normal sonographic appearance of the liver, common bile duct, and right kidney. D/ / Jesus Bee MD / Jesus Bee MD Interpreting Provider: Jesus Bee MD CT scan - abdomen Additional comments: Abdomen/Pelvis CT 11/22/16 08:11 IMPRESSION: 1. Findings are consistent with patient history of chronic pancreatitis, without current evidence of acute pancreatitis or pancreatic mass lesion. There are stable pseudocysts, as detailed above. 2. Cholelithiasis, with mild gallbladder wall thickening and mild amount of pericholecystic fluid. These findings could represent acute cholecystitis in the right clinical setting. Consider a follow-up gallbladder ultrasound for further evaluation. D/ / 11/22/2016 11:20:12 Jesus Bee MD / [email or web address] Interpreting Provider: Jesus Bee MD <Jacklyn Kate - Last Filed: 11/23/16 16:36> Internal Medicine - H&P: HPI History of present illness: Mr. Carlisle is a 41 year old male All Systems PM: A 10-system review of systems was performed and is negative for pertinent findings except as documented above in the HPI. - Constitutional Vitals: Temp Pulse Resp BP Pulse Ox 98.2 F 100 16 98/56 96 11/23/16 15:48 11/23/16 15:48 11/23/16 15:48 11/23/16 15:48 11/23/16 15:48 Internal Med - H&P Results - Labs CBC & Chem 7: 11/23/16 04:51 11/23/16 04:51 Labs: Short CBC 11/23/16 Range/Units 04:51 WBC 9.4 (4.3-11.1) K/mcL Hgb 11.6 L D (12.9-16.9) g/dL Hct 34.9 L (37.5-50.1) % Plt Count 147 (140-400) K/mcL Neutrophils # 6.8 (1.6-8.9) K/mcL BMP 11/23/16 04:51 Sodium 136 Potassium 3.7 Chloride 106 Carbon Dioxide 24 BUN 4 L Creatinine 0.53 L Glucose 110 H Calcium 7.6 L Liver Function 11/23/16 Range/Units 04:51 Total Bilirubin 1.4 H (0.2-1.2) mg/dL Direct Bilirubin 0.9 H (0.0-0.5) mg/dL AST 40 H (5-34) Units/L ALT 21 (0-55) Units/L Alkaline Phosphatase 161 H (38-126) Units/L Albumin 1.7 L D (3.5-5.0) g/dL - Impressions ITS Impressions Cholangiogram,Operative 11/23/16 00:00 IMPRESSION: No evidence of choledocholithiasis. Refer to surgical report. D/ / 11/23/2016 11:26:28 Rao Pedro MD / [email or web address] Interpreting Provider: Rao Pedro MD
[2016-11-22] MEDS: *HR* HYDROcodone/Acet 5/325 mg TABLET PO PRN (17:37)
[2016-11-22] MEDS: Piperacillin/Tazobactam 3.375 GM in D5% in Water (Mini-Bag+) 100 ML IVPB SCH (21:03)
[2016-11-23] MEDS: *HR* Morphine 2 MG/ML SYRINGE IVP PRN ×4 (03:52→21:10)
[2016-11-23] MEDS: Ondansetron 4 MG/2 ML VIAL IVP PRN (03:52)
[2016-11-23] MEDS: Piperacillin/Tazobactam 3.375 GM in D5% in Water (Mini-Bag+) 100 ML IVPB SCH ×3 (04:52→21:13)
[2016-11-23 05:02] LABS: Basophils % 0.3 %; Eosinophils # 0.2 K/mcL (0.0-0.6); Eosinophils % 1.8 %; Hematocrit 34.9 % (37.5-50.1); Immature Granulocytes % 0.3 % (0-4); Lymphocytes # 1.7 K/mcL (0.6-4.6); Mean Corpuscular HGB Conc 33.2 g/dL (31.6-35.5); Mean Corpuscular Hemoglobin 33.5 pg (28.0-33.3); Mean Corpuscular Volume 100.9 fL (83.0-100.0); Mean Platelet Volume 10.4 fL (9.4-12.4); Monocytes # 0.7 K/mcL (0.0-1.3); Monocytes % 7.1 %; Neutrophils # 6.8 K/mcL (1.6-8.9); Platelet Count 147 K/mcL (140-400); Red Blood Count 3.46 M/mcL (4.19-5.50); Red Cell Distribution Width 12.8 % (11.5-14.5); Segmented Neutrophils % 72.5 %
[2016-11-23 05:03] LABS: Hemoglobin 11.6 g/dL (12.9-16.9)
[2016-11-23 05:15] LABS: Alanine Aminotransferase 21 Units/L (0-55); Albumin/Globulin Ratio 0.5 (1.1-2.2); Alkaline Phosphatase 161 Units/L (38-126); Aspartate Amino Transferase 40 Units/L (5-34); BUN/Creatinine Ratio 8 (6-26); Bilirubin,Direct 0.9 mg/dL (0.0-0.5); Bilirubin,Indirect 0.5 mg/dL (0.0-1.2); Bilirubin,Total 1.4 mg/dL (0.2-1.2); Calcium 7.6 mg/dL (8.6-10.8); Carbon Dioxide 24 mEq/L (19-29); Chloride 106 mEq/L (98-109); Globulin 3.7 g/dL (2.4-3.5); Glucose 110 mg/dL (70-99); Osmolality,Calculated 280 (280-300); Potassium 3.7 mEq/L (3.5-4.5); Sodium 136 mEq/L (136-145); eGFR For African Americans > 60 (> 60); eGFR For Non-African Americans > 60 (> 60)
[2016-11-23 05:19] LABS: Albumin 1.7 g/dL (3.5-5.0); Blood Urea Nitrogen 4 mg/dL (8-26); Total Protein 5.4 g/dL (6.0-8.3)
[2016-11-23] MEDS ORDERED: *HR* Enoxaparin 40 MG/0.4 ML SYRINGE SQ SCH (07:00)
[2016-11-23] MEDS: *HR* HYDROcodone/Acet 5/325 mg TABLET PO PRN ×2 (08:09→14:19)
[2016-11-23] MEDS: 0.9 % Sodium Chloride 1,000 ML IVC SCH ×3 (08:09→21:12)
[2016-11-23] MEDS ORDERED: *HR* Midazolam HCl 2 MG/2 ML VIAL ONE (09:41)
[2016-11-23] MEDS ORDERED: Lidocaine -MPF 4% 5 ML AMPUL ONE (09:41)
[2016-11-23] MEDS ORDERED: *HR* Propofol 200 MG/20 ML VIAL IVP ONE (09:41)
[2016-11-23] MEDS ORDERED: *HR* FentaNYL (PF) 100 MCG/2 ML VIAL ONE (09:41)
[2016-11-23] MEDS ORDERED: Lidocaine -MPF 2% 2 ML VIAL ONE ×2 (09:41→10:52)
[2016-11-23] MEDS ORDERED: *HR* Succinylcholine 200 MG/10 ML VIAL IVP ONE (09:41)
[2016-11-23] MEDS ORDERED: Acetaminophen IV 0 MG/0 ML INFUS..BTL ONE (09:50)
--- NOTE | 2016-11-23 10:01 | Anesthesia Evaluation PreOp ---
Date of Encounter: 11/23/16 Time of Encounter: 09:58 - Past History Planned Operation: [facility] Cardiac History: Denies any Significant Hx, Other (PVD s/p iliac stents) Pulmonary History: Smoker (<1ppd x 25yrs) PILLOWCASE CLEANER History: Denies Any Significant HX Other Medical History: Hepatic (Alcoholic Cirrhosis without ascites), GERD ( mantained on Sucralfate & Omeprazole), Other (Chronic pancreatitis (alcoholic induced), Osteoporosis) Anesthesia History: No Prior Anesthetic Complications, Past Anesthesia ( Pancreatic stents for pseudocysts, iliac stents for PVD) Alcohol Use: none ("Quit drinking years ago") Drug use: none Medications and Allergies Ascorbic Acid [Vitamin C] 1,000 mg PO DAILY 07/04/16 [History] Omeprazole 20 mg PO TID 07/04/16 [History] Oxycodone HCl/Acetaminophen [Percocet 5-325 mg Tablet] 1 tab PO Q4-6H PRN [History] Sucralfate [Carafate] 1 gm PO QIDAC #120 tablet 07/04/16 [Rx] Vitamin A 10,000 unit PO DAILY 07/04/16 [History] Vitamin B Complex 1 cap PO DAILY 07/04/16 [History] Allergies No Known Allergies Allergy (Verified 07/04/16 08:39) - Meds/Allergy Pre-op Review Medications Reviewed: Yes Allergies Reviewed: Yes Beta Blockers on Current Med List: No Anesthesia Results - Labs 11/23/16 04:51 11/23/16 04:51 Laboratory Results Impressions Abdomen/Pelvis CT 11/22/16 08:11 IMPRESSION: 1. Findings are consistent with patient history of chronic pancreatitis, without current evidence of acute pancreatitis or pancreatic mass lesion. There are stable pseudocysts, as detailed above. 2. Cholelithiasis, with mild gallbladder wall thickening and a mild amount of pericholecystic fluid. These findings could represent acute cholecystitis in the right clinical setting. Consider a follow-up gallbladder ultrasound for further evaluation. D/ / 11/22/2016 11:20:12 Jesus Bee MD / [email or web address] Interpreting Provider: Jesus Bee MD Gallbladder Ultrasound 11/22/16 10:22 IMPRESSION: 1. Cholelithiasis with gallbladder wall thickening and a mild amount of pericholecystic fluid. These findings are suggestive of cholecystitis. 2. Chronic pancreatitis with an approximate 2 cm pseudocyst within the pancreatic tail. 3. Normal sonographic appearance of the liver, common bile duct, and right kidney. D/ / Jesus Bee MD / Jesus Bee MD Interpreting Provider: Jesus Bee MD - Imaging EKG: image reviewed Anesthesia Exam Vital Signs Temp Pulse Resp BP Pulse Ox 11/23/16 08:02 98 11/23/16 07:00 98.2 F 83 16 93/50 98 11/23/16 04:28 98.3 F 81 16 95/52 98 11/22/16 23:10 98.5 F 88 16 92/54 97 11/22/16 19:45 98.2 F 83 14 99/62 98 11/22/16 14:20 98 F 83 16 108/70 99 11/22/16 14:16 99 11/22/16 13:57 16 94/68 11/22/16 12:31 79 18 94/68 100 11/22/16 10:49 77 78 97/81 100 Intake and Output 11/22/16 11/23/16 11/23/16 23:59 07:59 15:59 Intake Total 1720 / 1720 1460 / 1460 Output Total 0 / 0 350 / 350 Balance 1720 / 1720 1110 / 1110 Intake: IV Fluids 1000 / 1000 1100 / 1100 0.9 % Sodium Chloride 1, 1000 / 1000 1000 / 1000 000 ML @ 125 mls/hr IVC . Q8H [facility] Rx#:[id number] Zosyn 3.375 GM In 100 / 100 Dextrose 5% (Minibag+) 100 ML 100 ML @ 25 mls/hr IVPB Q8H [facility] Rx#: [id number] Oral 720 / 720 360 / 360 Output: Urine 0 / 0 350 / 350 Other: Meal Dinner # Voids 1 Weight 62.709 kg Blood Glucose* 144 95 Patient Weight 11/23/16 23:59 Weight 62.709 kg Laboratory Results WBC 9.4 K/mcL (4.3-11.1) 11/23/16 04:51 RBC 3.46 M/mcL (4.19-5.50) L 11/23/16 04:51 Hgb 11.6 g/dL (12.9-16.9) L D 11/23/16 04:51 Hct 34.9 % (37.5-50.1) L 11/23/16 04:51 MCV 100.9 fL (83.0-100.0) H 11/23/16 04:51 MCH 33.5 pg (28.0-33.3) H 11/23/16 04:51 MCHC 33.2 g/dL (31.6-35.5) 11/23/16 04:51 RDW 12.8 % (11.5-14.5) 11/23/16 04:51 Plt Count 147 K/mcL (140-400) 11/23/16 04:51 MPV 10.4 fL (9.4-12.4) 11/23/16 04:51 Immature Gran % 0.3 % (0-4) 11/23/16 04:51 Seg Neutrophils % 72.5 % 11/23/16 04:51 Lymphocytes % 18.0 % 11/23/16 04:51 Monocytes % 7.1 % 11/23/16 04:51 Eosinophils % 1.8 % 11/23/16 04:51 Basophils % 0.3 % 11/23/16 04:51 Neutrophils # 6.8 K/mcL (1.6-8.9) 11/23/16 04:51 Lymphocytes # 1.7 K/mcL (0.6-4.6) 11/23/16 04:51 Monocytes # 0.7 K/mcL (0.0-1.3) 11/23/16 04:51 Eosinophils # 0.2 K/mcL (0.0-0.6) 11/23/16 04:51 Basophils # 0.0 K/mcL (0.0-0.2) 11/23/16 04:51 PT 14.0 Seconds (9.4-12.1) H 11/22/16 08:14 INR 1.3 11/22/16 08:14 APTT 31.2 Seconds (26.0-36.0) 11/22/16 08:14 Sodium 136 mEq/L (136-145) 11/23/16 04:51 Potassium 3.7 mEq/L (3.5-4.5) 11/23/16 04:51 Chloride 106 mEq/L (98-109) 11/23/16 04:51 Carbon Dioxide 24 mEq/L (19-29) 11/23/16 04:51 BUN 4 mg/dL (8-26) L 11/23/16 04:51 Creatinine 0.53 mg/dL (0.72-1.25) L 11/23/16 04:51 Est GFR ( Amer) > 60 (> 60) 11/23/16 04:51 Est GFR (Non-Af Amer) > 60 (> 60) 11/23/16 04:51 BUN/Creatinine Ratio 8 (6-26) 11/23/16 04:51 Glucose 110 mg/dL (70-99) H 11/23/16 04:51 POC Glucose 95 (58-89) H 11/23/16 05:52 Calculated Osmolality 280 (280-300) 11/23/16 04:51 Lactic Acid 1.1 mmol/L (0.5-2.2) 11/22/16 15:38 Calcium 7.6 mg/dL (8.6-10.8) L 11/23/16 04:51 Total Bilirubin 1.4 mg/dL (0.2-1.2) H 11/23/16 04:51 Direct Bilirubin 0.9 mg/dL (0.0-0.5) H 11/23/16 04:51 Indirect Bilirubin 0.5 mg/dL (0.0-1.2) 11/23/16 04:51 AST 40 Units/L (5-34) H 11/23/16 04:51 ALT 21 Units/L (0-55) 11/23/16 04:51 Alkaline Phosphatase 161 Units/L (38-126) H 11/23/16 04:51 Troponin I 0.01 ng/mL (0-0.03) 11/22/16 08:14 Serum Total Protein 5.4 g/dL (6.0-8.3) L D 11/23/16 04:51 Albumin 1.7 g/dL (3.5-5.0) L D 11/23/16 04:51 Globulin 3.7 g/dL (2.4-3.5) H 11/23/16 04:51 Albumin/Globulin Ratio 0.5 (1.1-2.2) L 11/23/16 04:51 Lipase 19 Units/L (8-78) 11/22/16 08:14 Urine Color [place] (Yellow) A 11/22/16 08:35 Urine Clarity Cloudy (Clear) A 11/22/16 08:35 Urine pH 6.0 pH Units (5.0-8.0) 11/22/16 08:35 Ur Specific [place] 1.026 (1.010-1.025) H 11/22/16 08:35 Urine Protein 30 mg/dL (Neg-Trace) H 11/22/16 08:35 Urine Glucose (UA) Normal mg/dL (Normal) 11/22/16 08:35 Urine Ketones 15 mg/dL (Negative) H 11/22/16 08:35 Urine Blood Negative (Negative) 11/22/16 08:35 Urine Nitrite Negative (Negative) 11/22/16 08:35 Urine Bilirubin Small (Negative) H 11/22/16 08:35 Urine Urobilinogen Normal mg/dL (Normal) 11/22/16 08:35 Ur Leukocyte Esterase Trace (Negative) H 11/22/16 08:35 Urine Microscopic RBC 0-3 per hpf (0-3) 11/22/16 08:35 Urine Microscopic WBC 0-3 per hpf (0-3) 11/22/16 08:35 Ur Squamous Epith Cells Moderate per lpf (None-Few) H 11/22/16 08:35 Amorphous Sediment Many (Few) H 11/22/16 08:35 Urine Bacteria None Seen per hpf (None-Few) 11/22/16 08:35 Hyaline Casts None Seen per lpf (None-Few) 11/22/16 08:35 Urine Mucus Many (Few) H 11/22/16 08:35 Ur Culture Indicated? YES (NO) A 11/22/16 08:35 Impressions Abdomen/Pelvis CT 11/22/16 08:11 IMPRESSION: 1. Findings are consistent with patient history of chronic pancreatitis, without current evidence of acute pancreatitis or pancreatic mass lesion. There are stable pseudocysts, as detailed above. 2. Cholelithiasis, with mild gallbladder wall thickening and a mild amount of pericholecystic fluid. These findings could represent acute cholecystitis in the right clinical setting. Consider a follow-up gallbladder ultrasound for further evaluation. D/ / 11/22/2016 11:20:12 Jesus Bee MD / [email or web address] Interpreting Provider: Jesus Bee MD Gallbladder Ultrasound 11/22/16 10:22 IMPRESSION: 1. Cholelithiasis with gallbladder wall thickening and a mild amount of pericholecystic fluid. These findings are suggestive of cholecystitis. 2. Chronic pancreatitis with an approximate 2 cm pseudocyst within the pancreatic tail. 3. Normal sonographic appearance of the liver, common bile duct, and right kidney. D/ / Jesus Bee MD / Jesus Bee MD Interpreting Provider: Jesus Bee MD - HEENT Pupil (Motor): Pupils equal, EOMI Mallampati: II Teeth: Edentulous Oral Opening: Greater than 3 - PILLOWCASE CLEANER LOC: Oriented PILLOWCASE CLEANER Motor: Normal RUE, Normal LUE, Normal RLE, Normal LLE, Normal Face PILLOWCASE CLE[employer]ER Sensory: Normal: RUE, LUE, RLE, LLE, Face - Cardiac Rhythm: Regular Murmur: None - Pulmonary Breath Sounds: bilateral Clear Respiratory Effort: Symmetrical Anesthesia Assess/Plan ASA Score: 3 (Cirrhosis, Smoker,) Modified Anthon Scale for Level of Consciousness: Cooperative, oriented, and tranquil Anesthetic Plan: General Monitoring Plan: Standard Monitors Recovery Plan: PACU Anes Supervising Prov Stmt: Pt seen/evaluated, R&B discussed, questions answered and consent obtained. Arsenio Lombardi MD
--- NOTE | 2016-11-23 10:07 | General Surgery Progress Note ---
Date of Encounter: 11/23/16 Time of Encounter: 10:05 - Assessment and Plan (1) Cholecystitis Current Visit: Yes Status: Acute I reviewed with the patient that his Bilirubin is stable at 1.4 I do think that despite his history of cirrhosis and chronic pancreatitis that it is likely that his current pain is more associated with cholecystitis. I think it would be appropriate to proceed with a laparoscopic cholecystectomy with IOC. Risks and benefits have been discussed with the patient and he agrees to the above plan. Subjective Patient reports: feels better (States that the epigastric pain has improved. No nausea.) Objective Vital Signs - Last 8 Hours Temp Pulse Resp BP Pulse Ox 11/23/16 08:02 98 11/23/16 07:00 98.2 F 83 16 93/50 98 11/23/16 04:28 98.3 F 81 16 95/52 98 Intake and Output 11/22/16 11/23/16 11/23/16 23:59 07:59 15:59 Intake Total 1720 / 1720 1460 / 1460 Output Total 0 / 0 350 / 350 Balance 1720 / 1720 1110 / 1110 Intake: IV Fluids 1000 / 1000 1100 / 1100 0.9 % Sodium Chloride 1, 1000 / 1000 1000 / 1000 000 ML @ 125 mls/hr IVC . Q8H [facility] Rx#:[id number] Zosyn 3.375 GM In 100 / 100 Dextrose 5% (Minibag+) 100 ML 100 ML @ 25 mls/hr IVPB Q8H [facility] Rx#: [id number] Oral 720 / 720 360 / 360 Output: Urine 0 / 0 350 / 350 Other: Meal Dinner # Voids 1 Weight 62.709 kg Blood Glucose* 144 95 Patient Weight 11/23/16 23:59 Weight 62.709 kg - General physical appearance no distress - Cardiovascular Cardiovascular exam: Present: RRR, no murmurs/rubs/gallops - Abdomen Abdomen: Present: bowel sounds present, soft, tender (Mild pain to moderate palpation in the epigastrum) - Labs 11/23/16 04:51 11/23/16 04:51 Diabetes panel 11/23/16 Range/Units 04:51 Sodium 136 (136-145) mEq/L Potassium 3.7 (3.5-4.5) mEq/L Chloride 106 (98-109) mEq/L Carbon Dioxide 24 (19-29) mEq/L BUN 4 L (8-26) mg/dL Creatinine 0.53 L (0.72-1.25) mg/dL Glucose 110 H (70-99) mg/dL Calcium 7.6 L (8.6-10.8) mg/dL AST 40 H (5-34) Units/L ALT 21 (0-55) Units/L Alkaline Phosphatase 161 H (38-126) Units/L Albumin 1.7 L D (3.5-5.0) g/dL Calcium panel 11/23/16 Range/Units 04:51 Calcium 7.6 L (8.6-10.8) mg/dL Albumin 1.7 L D (3.5-5.0) g/dL Pituitary panel 11/23/16 Range/Units 04:51 Sodium 136 (136-145) mEq/L Potassium 3.7 (3.5-4.5) mEq/L Chloride 106 (98-109) mEq/L Carbon Dioxide 24 (19-29) mEq/L BUN 4 L (8-26) mg/dL Creatinine 0.53 L (0.72-1.25) mg/dL Glucose 110 H (70-99) mg/dL Calcium 7.6 L (8.6-10.8) mg/dL Adrenal panel 11/23/16 Range/Units 04:51 Sodium 136 (136-145) mEq/L Potassium 3.7 (3.5-4.5) mEq/L Chloride 106 (98-109) mEq/L Carbon Dioxide 24 (19-29) mEq/L BUN 4 L (8-26) mg/dL Creatinine 0.53 L (0.72-1.25) mg/dL Glucose 110 H (70-99) mg/dL Calcium 7.6 L (8.6-10.8) mg/dL Total Bilirubin 1.4 H (0.2-1.2) mg/dL AST 40 H (5-34) Units/L ALT 21 (0-55) Units/L Alkaline Phosphatase 161 H (38-126) Units/L Albumin 1.7 L D (3.5-5.0) g/dL Consult Discharge Plan - Plan Referrals: Josiah Jimenez Jr, MD [Primary Care Provider] -
[2016-11-23] MEDS ORDERED: Famotidine 20 MG/2 ML VIAL ONE (10:14)
[2016-11-23] MEDS ORDERED: Metoclopramide 10 MG/2 ML VIAL ONE (10:14)
[2016-11-23] MEDS ORDERED: Dexamethasone 4 MG/ML VIAL ONE (10:51)
[2016-11-23] MEDS ORDERED: Ondansetron 4 MG/2 ML VIAL ONE (10:51)
[2016-11-23] MEDS ORDERED: Ketorolac 30 MG/ML VIAL ONE (11:02)
[2016-11-23] MEDS ORDERED: *HR* Magnesium Sulfate 1 GM/2 ML VIAL ONE (11:02)
[2016-11-23] MEDS ORDERED: *HR* HYDROmorphone 2 MG/ML SYRINGE ONE (11:03)
[2016-11-23] MEDS ORDERED: *HR* Promethazine 25 MG/ML VIAL IVP PRN ×2 (11:19→12:32)
[2016-11-23] MEDS ORDERED: *HR* Labetalol 100 MG/20 ML MDV IVP PRN (11:19)
--- NOTE | 2016-11-23 11:33 | Operative Note ---
Date of procedure: 11/23/16 Pre-op diagnosis: Cholecystitis, cirrhosis, chronic pancreatitis, elevated bilirubin Post-op diagnosis: same Procedure: Laparoscopic cholecystectomy with IOC Anesthesia: DIONEA Surgeon: Mikey Gutierrez Estimated blood loss (cc): 30 Specimen: gallbladder Disposition: PACU Procedure in Detail: Date of surgery: 11/23/16 After properly identifying the patient, the patient was brought to the operating room and placed in a supine position. After proper IV sedation was achieved followed by general endotracheal intubation, the patient's abdomen was prepped and draped in a normal sterile fashion. A timeout was performed noting the patient's name and type of procedure to be performed. A supraumbilical incision with an 11 blade scalpel was made down to the level of the rectus fascia and the rectus fascia was incised followed by placement of a 12 mm port through the incision. The abdomen was insufflated with carbon dioxide and a laparoscopic camera was placed through the port which showed no injury to the intra-abdominal organs upon entry. A subxiphoid 5 mm port and a right subcostal margin 5 mm port were placed under direct camera visualization. The patient was placed in a reverse Trendelenburg position. The right upper quadrant was examined and the gallbladder was identified and grasped with a nontraumatic grasper and retracted superiorly. The cystic duct was dissected away from the surrounding tissue and the distal cystic duct near the infundibulum was clipped with a laparoscopic clip. A [place] grasper was brought unto the operative field which was used to replace the nontraumatic grasper. A cholangiogram catheter was introduced with the side-port of the grasper followed by incising the cystic duct just proximal to the clip. The catheter was then placed through the opening and secured with a laparoscopic clip. Laparoscopic intraoperative cholangiogram demonstrated anterior grade flow through the common bile duct into the small bowel with retrograde filling of the hepatic ducts without signs of a filling defect. The catheter was removed and the cystic duct was then formally clip laparoscopic clips, and incised with laparoscopic scissors. The cystic artery was also identified, isolated, clipped with laparoscopic clips and incised with laparoscopic scissors. The gallbladder was dissected away from the gallbladder fossa with Bovie cauterization while bovie cauterization and clip application were used to maintain hemostasis. Once the gallbladder was dissected free it was removed from the abdomen via an Endobag. Reinspection of the right upper quadrant demonstrated maintenance of hemostasis and the right upper quadrant was copiously irrigated with normal saline solution until the effluent was clear. All ports were then removed from the abdomen after the abdomen was desufflated. The supraumbilical incision was closed by reapproximating the fascia using an 0 Vicryl suture in a [id number] fashion. The subcutaneous tissue was reapproximated with interrupted 3-0 Vicryl sutures and the epidermal and dermal layers for the remaining incisions were closed with 4-0 Monocryl sutures. Needle, sponge, and instrument counts were correct 2 and the incisions were covered with Steri-Strips and Band-Aids. The patient was aroused from IV sedation, extubated in the operating room without complication, and transported to the recovery room in stable condition.
[2016-11-23] MEDS ORDERED: Neostigmine Methylsulfate 3 MG/3 ML SYRINGE ONE (11:36)
[2016-11-23] MEDS: *HR* HYDROmorphone (PF) 1 MG/ML SYRINGE IVP PRN ×2 (11:55→12:00)
[2016-11-23] MEDS ORDERED: Ringers Solution, Lactated 1,000 ML ONE (12:05)
[2016-11-23] MEDS ORDERED: Naloxone 0.4 MG/ML INJ IVP PRN (12:32)
[2016-11-23] MEDS ORDERED: 0.9 % Sodium Chloride 1,000 ML IVC SCH (12:32)
[2016-11-23] MEDS ORDERED: Ondansetron 4 MG/2 ML VIAL IVP PRN (12:32)
--- NOTE | 2016-11-23 18:12 | Internal Med Progress Note ---
Date of Encounter: 11/23/16 Time of Encounter: 16:00 - Assessment and plan (1) Cholecystitis Current Visit: Yes Status: Acute Assessment and plan: Patient presented with abdominal pain, nausea and vomiting. CT abdomen showed gallstones within the gall bladder with borderline gallbladder wall thickening and a mild amount of pericholecystic fluid, which could represent cholecystitis. 11/23: Appreciate surgery help. Pt underwent lap ana with IOC today. IV fluids. IV Zosyn. [place] and morphine for pain control Zofran for nausea. (2) Chronic pancreatitis Current Visit: Yes Status: Acute Assessment and plan: Patient with history of chronic pancreatitis. Lipase normal. CT of abdomen shows scattered pancreatic parenchymal calcifications, pancreatic ductal dilatation, and peripancratic fat necrosis and scarring, unchanged from prior exams. There is no evidence of acute peripancreatic inflammation to suggest acute on chronic pancreatitis. 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 Reports he quit drinking years ago. Qualifiers: Hepatic cirrhosis type: alcoholic cirrhosis Ascites presence: without ascites Qualified Code(s): K70.30 - Alcoholic cirrhosis of liver without ascites - Subjective Interval history: pt reports moderate abdominal pain. mild nausea. he is eager to eat. - Constitutional Vitals: Temp Pulse Resp BP Pulse Ox 98.2 F 85 16 106/65 96 11/23/16 15:48 11/23/16 17:10 11/23/16 15:48 11/23/16 17:10 11/23/16 15:48 General appearance: Present: cooperative, A&O X 3, pleasant, no acute distress, answers questions appropriately - Respiratory Respiratory exam: Present: CTAB - Cardiovascular Cardiovascular exam: Present: RRR - GI/Abdominal GI/Abdominal exam: Present: distended, normal bowel sounds, soft, tenderness ( midl diffuse tenderness) - Extremities Exam Extremities exam: Absent: pedal edema - Back Exam Back exam: Absent: CVA tenderness (L), CVA tenderness (R) - Neurological Exam Neurological exam: Present: alert, oriented X3, no focal deficits, strengths equal and symetr throughout. Absent: facial droop, speech deficit - Skin Skin exam: Absent: rash Internal Medicine: Result - Labs CBC & Chem 7: 11/23/16 04:51 11/23/16 04:51 Labs: Short CBC 11/23/16 Range/Units 04:51 WBC 9.4 (4.3-11.1) K/mcL Hgb 11.6 L D (12.9-16.9) g/dL Hct 34.9 L (37.5-50.1) % Plt Count 147 (140-400) K/mcL Neutrophils # 6.8 (1.6-8.9) K/mcL BMP 11/23/16 04:51 Sodium 136 Potassium 3.7 Chloride 106 Carbon Dioxide 24 BUN 4 L Creatinine 0.53 L Glucose 110 H Calcium 7.6 L Liver Function 11/23/16 Range/Units 04:51 Total Bilirubin 1.4 H (0.2-1.2) mg/dL Direct Bilirubin 0.9 H (0.0-0.5) mg/dL AST 40 H (5-34) Units/L ALT 21 (0-55) Units/L Alkaline Phosphatase 161 H (38-126) Units/L Albumin 1.7 L D (3.5-5.0) g/dL - ABG Interpretation ABG results: PT/INR, D-dimer PT 14.0 Seconds (9.4-12.1) H 11/22/16 08:14 - Impressions Impressions Cholangiogram,Operative 11/23/16 00:00 IMPRESSION: No evidence of choledocholithiasis. Refer to surgical report. D/ / 11/23/2016 11:26:28 Rao Pedro MD / bakariay Interpreting Provider: Rao Pedro MD Consult Discharge Plan - Plan Referrals: Josiah Jimenez Jr, MD [Primary Care Provider] -
--- NOTE | 2016-11-23 23:05 | Electrocardiograph Report ---
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
[2016-11-24] MEDS: *HR* Morphine 2 MG/ML SYRINGE IVP PRN ×2 (01:32→05:24)
[2016-11-24 05:21] LABS: Basophils % 0.1 %; Eosinophils % 0.1 %; Hematocrit 39.5 % (37.5-50.1); Immature Granulocytes % 0.3 % (0-4); Lymphocytes # 1.8 K/mcL (0.6-4.6); Lymphocytes % 12.9 %; Mean Corpuscular HGB Conc 33.7 g/dL (31.6-35.5); Mean Corpuscular Hemoglobin 34.5 pg (28.0-33.3); Mean Corpuscular Volume 102.3 fL (83.0-100.0); Mean Platelet Volume 10.8 fL (9.4-12.4); Monocytes % 7.4 %; Neutrophils # 10.9 K/mcL (1.6-8.9); Platelet Count 159 K/mcL (140-400); Red Blood Count 3.86 M/mcL (4.19-5.50); Red Cell Distribution Width 12.6 % (11.5-14.5); Segmented Neutrophils % 79.2 %
[2016-11-24 05:22] LABS: Hemoglobin 13.3 g/dL (12.9-16.9)
[2016-11-24 05:36] LABS: Alanine Aminotransferase 23 Units/L (0-55); Albumin/Globulin Ratio 0.5 (1.1-2.2); Alkaline Phosphatase 175 Units/L (38-126); Aspartate Amino Transferase 35 Units/L (5-34); BUN/Creatinine Ratio 7 (6-26); Bilirubin,Direct 0.5 mg/dL (0.0-0.5); Bilirubin,Indirect 0.5 mg/dL (0.0-1.2); Calcium 8.1 mg/dL (8.6-10.8); Carbon Dioxide 21 mEq/L (19-29); Chloride 107 mEq/L (98-109); Globulin 4.6 g/dL (2.4-3.5); Glucose 133 mg/dL (70-99); Osmolality,Calculated 281 (280-300); Potassium 3.9 mEq/L (3.5-4.5); Sodium 136 mEq/L (136-145); eGFR For African Americans > 60 (> 60); eGFR For Non-African Americans > 60 (> 60)
[2016-11-24 05:37] LABS: Albumin 2.1 g/dL (3.5-5.0); Blood Urea Nitrogen 4 mg/dL (8-26); Total Protein 6.7 g/dL (6.0-8.3)
[2016-11-24] MEDS: Piperacillin/Tazobactam 3.375 GM in D5% in Water (Mini-Bag+) 100 ML IVPB SCH (05:46)
[2016-11-24 07:00] VITALS: BP 108/72
[2016-11-24] MEDS ORDERED: *HR* Enoxaparin 40 MG/0.4 ML SYRINGE SQ SCH (07:00)
--- NOTE | 2016-11-24 07:58 | General Surgery Progress Note ---
Date of Encounter: 11/24/16 Time of Encounter: 07:56 - Assessment and Plan (1) Cholecystitis Current Visit: Yes Status: Acute The patient is status post a laparoscopic cholecystectomy with cholangiogram. I explained to the patient there was no evidence of a filling defect in his laboratory studies returning to normal/baseline. I also informed him that the shoulder pain that he is experiencing his typical following gallbladder surgery and will improve over time. No heavy lifting greater than 15 pounds for 2 weeks and from a surgical standpoint he is okay to be discharged home. Certainly he has a follow-up to see myself or my nurse practitioner in 2 weeks. Subjective Patient reports: other (the patient admits to bilateral shoulder pain. Denies any nausea or vomiting. Periumbilical pain noted.) Objective Vital Signs - Last 8 Hours Temp Pulse Resp BP Pulse Ox 11/24/16 06:59 98.2 F 89 16 108/72 96 Intake and Output 11/23/16 11/23/16 11/24/16 15:59 23:59 07:59 Intake Total 1340 / 1340 340 / 340 100 / 100 Output Total 30 / 30 850 / 850 200 / 200 Balance 1310 / 1310 -510 / -510 -100 / -100 Intake: IV Fluids 1100 / 1100 100 / 100 100 / 100 0.9 % Sodium Chloride 1, 1000 / 1000 000 ML @ 125 mls/hr IVC . Q8H [facility] Rx#:[id number] Zosyn 3.375 GM In 100 / 100 100 / 100 100 / 100 Dextrose 5% (Minibag+) 100 ML 100 ML @ 25 mls/hr IVPB Q8H [facility] Rx#: [id number] Oral 240 / 240 240 / 240 Output: Urine 0 / 0 850 / 850 200 / 200 Estimated Blood Loss 30 / 30 Other: Meal Lunch Dinner Percent of Meal Consumed 25% 50% Weight 62.9 kg Blood Glucose* 242 Patient Weight 11/24/16 23:59 Weight 62.9 kg - General physical appearance moderate distress - Abdomen Abdomen: Present: bowel sounds present, soft (Band-Aids in place. Tenderness to palpation at the level of the incisions.) - Labs 11/24/16 04:47 11/24/16 04:47 Diabetes panel 11/24/16 Range/Units 04:47 Sodium 136 (136-145) mEq/L Potassium 3.9 (3.5-4.5) mEq/L Chloride 107 (98-109) mEq/L Carbon Dioxide 21 (19-29) mEq/L BUN 4 L (8-26) mg/dL Creatinine 0.55 L (0.72-1.25) mg/dL Glucose 133 H (70-99) mg/dL Calcium 8.1 L (8.6-10.8) mg/dL AST 35 H (5-34) Units/L ALT 23 (0-55) Units/L Alkaline Phosphatase 175 H (38-126) Units/L Albumin 2.1 L D (3.5-5.0) g/dL Calcium panel 11/24/16 Range/Units 04:47 Calcium 8.1 L (8.6-10.8) mg/dL Albumin 2.1 L D (3.5-5.0) g/dL Pituitary panel 11/24/16 Range/Units 04:47 Sodium 136 (136-145) mEq/L Potassium 3.9 (3.5-4.5) mEq/L Chloride 107 (98-109) mEq/L Carbon Dioxide 21 (19-29) mEq/L BUN 4 L (8-26) mg/dL Creatinine 0.55 L (0.72-1.25) mg/dL Glucose 133 H (70-99) mg/dL Calcium 8.1 L (8.6-10.8) mg/dL Adrenal panel 11/24/16 Range/Units 04:47 Sodium 136 (136-145) mEq/L Potassium 3.9 (3.5-4.5) mEq/L Chloride 107 (98-109) mEq/L Carbon Dioxide 21 (19-29) mEq/L BUN 4 L (8-26) mg/dL Creatinine 0.55 L (0.72-1.25) mg/dL Glucose 133 H (70-99) mg/dL Calcium 8.1 L (8.6-10.8) mg/dL Total Bilirubin 1.0 (0.2-1.2) mg/dL AST 35 H (5-34) Units/L ALT 23 (0-55) Units/L Alkaline Phosphatase 175 H (38-126) Units/L Albumin 2.1 L D (3.5-5.0) g/dL Consult Discharge Plan - Plan Referrals: Josiah Jimenez Jr, MD [Primary Care Provider] -
[2016-11-24] MEDS: *HR* HYDROcodone/Acet 5/325 mg TABLET PO PRN (08:13)
[2016-11-24] MEDS: 0.9 % Sodium Chloride 1,000 ML IVC SCH (08:14)
[2016-11-24] MEDS ORDERED: *HR* Morphine 2 MG/ML SYRINGE IVP PRN (09:34)
--- NOTE | 2016-11-24 09:37 | Discharge Summary ---
Date of Encounter: 11/24/16 Time of Encounter: 09:35 - Discharge Diagnosis (1) Cholecystitis Priority: Primary Status: Acute (2) Chronic pancreatitis Priority: Secondary Status: Chronic Qualifiers: Pancreatitis type: alcohol induced Qualified Code(s): K86.0 - Alcohol- induced chronic pancreatitis (3) Cirrhosis Priority: Secondary Status: Chronic Qualifiers: Hepatic cirrhosis type: alcoholic cirrhosis Ascites presence: without ascites Qualified Code(s): K70.30 - Alcoholic cirrhosis of liver without ascites - Discharge Medications Prescriptions: Oxycodone HCl/Acetaminophen [Percocet 5-325 mg Tablet] 1 tab PO Q6HR PRN #20 tablet PRN Reason: Pain Home Medications: Ascorbic Acid [Vitamin C] 1,000 mg PO DAILY 07/04/16 [History] Omeprazole 20 mg PO TID 07/04/16 [History] Sucralfate [Carafate] 1 gm PO QIDAC #120 tablet 07/04/16 [Rx] Vitamin A 10,000 unit PO DAILY 07/04/16 [History] Vitamin B Complex 1 cap PO DAILY 07/04/16 [History] Oxycodone HCl/Acetaminophen [Percocet 5-325 mg Tablet] 1 tab PO Q6HR PRN #20 tablet 11/24/16 [Rx] Allergies/Adverse Reactions: Allergies No Known Allergies Allergy (Verified 07/04/16 08:39) Date of admission: 11/22/16 13:50 Primary care physician: Josiah Jimenez Jr, MD - Patient Status Disposition: Home, Self-Care Condition: Good Functional capacity at discharge: independent ambulation Overall status at discharge: patient is progressing back to baseline - Discharge Instructions Follow Up With: Mikey Gutierrez MD [Partnered Physician] - 12/08/16 11:00 am Josiah Jimenez Jr, MD [Primary Care Provider] - 11/28/16 9:40 am (f/u in 1 week with PCP. f/u with DR gutierrez in 2 weeks) Additional Instructions: No heavy lifting greater than 15 pounds for 2 weeks Low fat diet. drink plenty of fluids. stop smoking - Diet and Activity Activity: resume usual activities as tolerated (No heavy lifting greater than 15 pounds for 2 weeks) Diet: low fat, low cholesterol Interval History: mild abdominal pain. tolerating his diet well. Hospital course: Mr. Carlisle is a 41 year old male with pmh of chronic pancreatitis, alcoholic cirrhosis, and GERD presented with complaints of abdominal pain, nausea and vomiting. CT abdomen showed gallstones within the gall bladder with borderline gallbladder wall thickening and a mild amount of pericholecystic fluid, which could represent cholecystitis. Patient underwent lap ana on 11/23 without complications. He was eating and ambulating well at discharge. PLAN: f/u with dr gutierrez in 2 weeks. - Time Spent with Patient Total time spent providing and/or coordinating discharge services: - Constitutional Vitals: Temp Pulse Resp BP Pulse Ox 98.2 F 89 16 108/72 96 11/24/16 06:59 11/24/16 06:59 11/24/16 06:59 11/24/16 06:59 11/24/16 06:59 General appearance: Present: cooperative, A&O X 3, pleasant, no acute distress, answers questions appropriately - Respiratory Respiratory exam: Present: CTAB - Cardiovascular Cardiovascular exam: Present: RRR - GI/Abdominal GI/Abdominal exam: Present: distended, normal bowel sounds, soft, tenderness ( mild tenderness in RUQ) - Extremities Exam Extremities exam: Absent: pedal edema - Neurological Exam Neurological exam: Present: alert, oriented X3, no focal deficits, strengths equal and symetr throughout. Absent: facial droop, speech deficit - VTE Documentation of Mechanical Device: Intermittent pneumatic compression device
== END 2016-11-24 10:55 | disposition home or self-care (01) ==
LOC: 3ANU 07:52 → EMEROO 07:52 → 3ANU 14:27
PROVIDERS: ADMIT Nurse Practitioner Family; ATTEND Internal Medicine

== ENCOUNTER 2017-10-23 06:22 | Inpatient (IN) ==
[2017-10-23] MEDS ORDERED: Ondansetron 4 MG/2 ML VIAL IVP ONE (06:35)
[2017-10-23] MEDS ORDERED: 0.9 % Sodium Chloride 1,000 ML IVC ONE (06:35)
[2017-10-23] MEDS ORDERED: *HR* FentaNYL (PF) 100 MCG/2 ML VIAL IVP ONE ×3 (06:35→09:49)
[2017-10-23] MEDS ORDERED: *HR* LORazepam 2 MG/ML VIAL IVP ONE (06:38)
[2017-10-23 07:00] LABS: Bilirubin,Urine Small (Negative); Blood,Urine Large (Negative); Clarity,Urine Cloudy (Clear); Color,Urine Dark Yellow (Yellow); Glucose,Urine (UA) Normal (Normal); Ketones,Urine 40 mg/dL (Negative); Leukocyte Esterase,Urine Trace (Negative); Nitrite,Urine Negative (Negative); Protein,Urine 30 mg/dL (Neg-Trace); Specific Gravity,Urine 1.019 (1.010-1.025); Urobilinogen,Urine Normal (Normal)
--- NOTE | 2017-10-23 07:03 | Emergency Department Note ---
Disposition Clinical Impression: Abdominal pain Qualifiers: Abdominal location: upper abdomen, unspecified Qualified Code(s): R10.10 - Upper abdominal pain, unspecified Pancreatitis Qualifiers: Chronicity: acute Pancreatitis type: unspecified pancreatitis type Acute pancreatitis complication: unspecified Qualified Code(s): K85.90 - Acute pancreatitis without necrosis or infection, unspecified Disposition: Admitted As Inpatient Condition: Fair Abdominal Pain HPI - General Chief Complaint: ED Abdominal Pain Stated Complaint: Abdominal Pain Time Seen by Provider: 10/23/17 06:27 Source: patient, EMS Mode of arrival: EMS Limitations: no limitations Nursing Notes Reviewed: Yes Vital Signs Reviewed: Yes - History of Present Illness Pt Subjective Complaint: abdominal pain Onset (ago): hour(s) Consistency: constant Location: epigastric Pain Severity: moderate, severe Pain Scale: 8 Quality: stabbing, sharp Radiation: other (periumbilical) - Related Data Home Medications Medication Instructions Recorded Confirmed Ascorbic Acid [Vitamin C] 1,000 mg PO DAILY 07/04/16 10/23/17 Omeprazole 20 mg PO TID 07/04/16 10/23/17 Vitamin A 10,000 unit PO DAILY 07/04/16 10/23/17 Vitamin B Complex 1 cap PO DAILY 07/04/16 10/23/17 Oxycodone HCl/Acetaminophen 1 tab PO Q4-6H PRN 10/23/17 10/23/17 [Percocet 5-325 mg Tablet] Previous Rx's Medication Instructions Recorded Sucralfate [Carafate] 1 gm PO QIDAC #120 tablet 07/04/16 Allergies Allergy/AdvReac Type Severity Reaction Status Date / Time No Known Allergies Allergy Verified 10/23/17 06:25 All systems ED: reviewed and negative except as stated. Review of Systems: As Per HPI Constitutional: Reports: chills. Denies: fever, weakness, weight change Eyes: Denies: eye pain, eye discharge, vision change ENT ED: Denies: ear pain, throat pain, congestion Cardiovascular: Denies: chest pain, palpitations, dyspnea on exertion Respiratory: Denies: cough, dyspnea, wheezes Gastrointestinal: Reports: as per HPI, abdominal pain, nausea, vomiting. Denies : diarrhea, constipation, hematemesis, melena, hematochezia Genitourinary: Denies: urgency, dysuria, frequency, hematuria Musculoskeletal: Denies: back pain, neck pain, joint swelling, arthralgia Integumentary: Denies: rash Neurological: Denies: headache, weakness, numbness Endocrine: Denies: fatigue Hematological/Lymphatic: Denies: easy bleeding, easy bruising Abdominal Pain PMH - Past Medical History Medical history: Reports: arthritis, cirrhosis, GERD, liver disease, osteoporosis, other Reports: pancreatitis Male Surgical History: Reports: other Psychiatric history: Reports: no psych history - Social History Smoking status: Current every day smoker Alcohol use: Reports: none Drug use: Reports: none Physical Exam - General Limitations: no limitations General appearance: alert, in distress - Head Head exam: atraumatic, normocephalic, normal inspection - Eye Eye exam: Present: normal appearance, PERRL. Absent: scleral icterus, conjunctival injection, periorbital swelling - ENT ENT exam: mucous membranes moist - Neck Neck exam: Present: normal inspection, full ROM, trachea midline. Absent: tenderness, meningismus, lymphadenopathy, thyromegaly - Chest Chest inspection: Present: normal inspection - Respiratory Respiratory exam: Present: normal lung sounds bilaterally. Absent: respiratory distress - Cardiovascular Cardiovascular exam: Present: regular rate, normal rhythm, normal heart sounds - Abdominal Exam Abdominal exam: Present: soft, tenderness, normal bowel sounds. Absent: distention, guarding, rebound - Extremities Exam Extremities exam: Present: normal inspection, full ROM - Back Exam Back exam: Present: normal inspection - Neurological Exam Neurological exam: Present: alert, oriented X3, CN II-XII intact, normal gait - Psychiatric Psychiatric exam: Present: normal affect, normal mood - Skin Skin exam: Present: warm, dry, intact, normal color Course Vital Signs Temperature 98.2 F 10/23/17 06:26 Pulse Rate 100 10/23/17 06:26 Respiratory Rate 18 10/23/17 06:26 Blood Pressure 139/96 10/23/17 06:26 O2 Sat by Pulse Oximetry 98 10/23/17 06:26 Temperature 99.6 F 10/23/17 12:32 Pulse Rate 76 10/23/17 12:32 Respiratory Rate 16 10/23/17 12:32 Blood Pressure 119/79 10/23/17 12:32 O2 Sat by Pulse Oximetry 96 10/23/17 12:32 Oxygen Delivery Oxygen Delivery Room Air Abdominal Pain - Medical Records Medical records reviewed: Yes I reviewed the patient's medical records. - Lab Data Lab results reviewed: Yes I reviewed the patient's lab results. Lab results narrative: Laboratory Last Values WBC 15.6 K/mcL (4.3-11.1) H 10/23/17 06:25 RBC 5.36 M/mcL (4.19-5.50) 10/23/17 06:25 Hgb 17.6 g/dL (12.9-16.9) H 10/23/17 06:25 Hct 51.5 % (37.5-50.1) H 10/23/17 06:25 MCV 96.1 fL (83.0-100.0) 10/23/17 06:25 MCH 32.8 pg (28.0-33.3) 10/23/17 06:25 MCHC 34.2 g/dL (31.6-35.5) 10/23/17 06:25 RDW 12.8 % (11.5-14.5) 10/23/17 06:25 Plt Count 218 K/mcL (140-400) 10/23/17 06:25 MPV 10.3 fL (9.4-12.4) 10/23/17 06:25 Immature Gran % 0.3 % (0-4) 10/23/17 06:25 Seg Neutrophils % 78.7 % 10/23/17 06:25 Lymphocytes % 11.6 % 10/23/17 06:25 Monocytes % 8.9 % 10/23/17 06:25 Eosinophils % 0.2 % 10/23/17 06:25 Basophils % 0.3 % 10/23/17 06:25 Neutrophils # 12.3 K/mcL (1.6-8.9) H 10/23/17 06:25 Lymphocytes # 1.8 K/mcL (0.6-4.6) 10/23/17 06:25 Monocytes # 1.4 K/mcL (0.0-1.3) H 10/23/17 06:25 Eosinophils # 0.0 K/mcL (0.0-0.6) 10/23/17 06:25 Basophils # 0.1 K/mcL (0.0-0.2) 10/23/17 06:25 Sodium 134 mEq/L (136-145) L 10/23/17 08:12 Potassium 3.8 mEq/L (3.5-5.1) 10/23/17 08:12 Chloride 102 mEq/L (98-107) 10/23/17 08:12 Carbon Dioxide 26 mEq/L (23-29) 10/23/17 08:12 BUN 6 mg/dL (6-20) 10/23/17 08:12 Creatinine 0.42 mg/dL (0.70-1.30) L 10/23/17 08:12 Est GFR ( Amer) > 60 (> 60) 10/23/17 08:12 Est GFR (Non-Af Amer) > 60 (> 60) 10/23/17 08:12 BUN/Creatinine Ratio 14 (6-26) 10/23/17 08:12 Glucose 122 mg/dL (70-105) H 10/23/17 08:12 Calculated Osmolality 277 (280-300) L 10/23/17 08:12 Lactic Acid 0.9 mmol/L (0.5-2.2) 10/23/17 07:31 Calcium 8.6 mg/dL (8.6-10.3) 10/23/17 08:12 Total Bilirubin 1.1 mg/dL (0.3-1.0) H 10/23/17 08:12 Direct Bilirubin 0.4 mg/dL (0.0-0.2) H 10/23/17 08:12 Indirect Bilirubin 0.7 mg/dL (0.0-1.2) 10/23/17 08:12 AST 16 Units/L (13-39) 10/23/17 08:12 ALT 12 Units/L (7-52) 10/23/17 08:12 Alkaline Phosphatase 285 Units/L (34-104) H 10/23/17 08:12 Serum Total Protein 6.9 g/dL (6.4-8.9) 10/23/17 08:12 Albumin 3.2 g/dL (3.5-5.7) L 10/23/17 08:12 Globulin 3.7 g/dL (2.4-3.5) H 10/23/17 08:12 Albumin/Globulin Ratio 0.9 (1.1-2.2) L 10/23/17 08:12 Lipase 31 Units/L (11-82) 10/23/17 08:12 Urine Color Dark Yellow (Yellow) 10/23/17 06:45 Urine Clarity Cloudy (Clear) A 10/23/17 06:45 Urine pH 6.0 pH Units (5.0-8.0) 10/23/17 06:45 Ur Specific [place] 1.019 (1.010-1.025) 10/23/17 06:45 Urine Protein 30 mg/dL (Neg-Trace) H 10/23/17 06:45 Urine Glucose (UA) Normal mg/dL (Normal) 10/23/17 06:45 Urine Ketones 40 mg/dL (Negative) H 10/23/17 06:45 Urine Blood Large (Negative) H 10/23/17 06:45 Urine Nitrite Negative (Negative) 10/23/17 06:45 Urine Bilirubin Small (Negative) H 10/23/17 06:45 Urine Urobilinogen Normal mg/dL (Normal) 10/23/17 06:45 Ur Leukocyte Esterase Trace (Negative) H 10/23/17 06:45 Urine Microscopic RBC 15-30 per hpf (0-3) H 10/23/17 06:45 Urine Microscopic WBC 3-5 per hpf (0-3) H 10/23/17 06:45 Ur Squamous Epith Cells Moderate per lpf (None-Few) H 10/23/17 06:45 Urine Bacteria None Seen per hpf (None-Few) 10/23/17 06:45 Hyaline Casts None Seen per lpf (None-Few) 10/23/17 06:45 Ur Culture Indicated? YES (NO) A 10/23/17 06:45 Ethyl Alcohol < 10 mg/dL (0-10) 10/23/17 06:25 Specimen Rejected Hemolyzed 10/23/17 07:31 Result diagrams: 10/23/17 06:25 10/23/17 08:12 Lab Results 10/23/17 10/23/17 10/23/17 Range/Units 06:25 06:25 06:45 WBC 15.6 H (4.3-11.1) K/mcL RBC 5.36 (4.19-5.50) M/mcL Hgb 17.6 H (12.9-16.9) g/dL Hct 51.5 H (37.5-50.1) % MCV 96.1 (83.0-100.0) fL MCH 32.8 (28.0-33.3) pg MCHC 34.2 (31.6-35.5) g/dL RDW 12.8 (11.5-14.5) % Plt Count 218 (140-400) K/mcL MPV 10.3 (9.4-12.4) fL Immature Gran % 0.3 (0-4) % Seg Neutrophils % 78.7 % Lymphocytes % 11.6 % Monocytes % 8.9 % Eosinophils % 0.2 % Basophils % 0.3 % Neutrophils # 12.3 H (1.6-8.9) K/mcL Lymphocytes # 1.8 (0.6-4.6) K/mcL Monocytes # 1.4 H (0.0-1.3) K/mcL Eosinophils # 0.0 (0.0-0.6) K/mcL Basophils # 0.1 (0.0-0.2) K/mcL Sodium (136-145) mEq/L Potassium (3.5-5.1) mEq/L Chloride (98-107) mEq/L Carbon Dioxide (23-29) mEq/L BUN (6-20) mg/dL Creatinine (0.70-1.30) mg/dL Est GFR ( Amer) (> 60) Est GFR (Non-Af Amer) (> 60) BUN/Creatinine Ratio (6-26) Glucose (70-105) mg/dL Calculated Osmolality (280-300) Lactic Acid (0.5-2.2) mmol/L Calcium (8.6-10.3) mg/dL Total Bilirubin (0.3-1.0) mg/dL Direct Bilirubin (0.0-0.2) mg/dL Indirect Bilirubin (0.0-1.2) mg/dL AST (13-39) Units/L ALT (7-52) Units/L Alkaline Phosphatase (34-104) Units/L Serum Total Protein (6.4-8.9) g/dL Albumin (3.5-5.7) g/dL Globulin (2.4-3.5) g/dL Albumin/Globulin Ratio (1.1-2.2) Lipase (11-82) Units/L Urine Color Dark Yellow (Yellow) Urine Clarity Cloudy A (Clear) Urine pH 6.0 (5.0-8.0) pH Units Ur Specific [place] 1.019 (1.010-1.025) Urine Protein 30 H (Neg-Trace) mg/dL Urine Glucose (UA) Normal (Normal) mg/dL Urine Ketones 40 H (Negative) mg/dL Urine Blood Large H (Negative) Urine Nitrite Negative (Negative) Urine Bilirubin Small H (Negative) Urine Urobilinogen Normal (Normal) mg/dL Ur Leukocyte Esterase Trace H (Negative) Urine Microscopic RBC 15-30 H (0-3) per hpf Urine Microscopic WBC 3-5 H (0-3) per hpf Ur Squamous Epith Cells Moderate H (None-Few) per lpf Urine Bacteria None Seen (None-Few) per hpf Hyaline Casts None Seen (None-Few) per lpf Ur Culture Indicated? YES A (NO) Ethyl Alcohol < 10 (0-10) mg/dL Specimen Rejected 10/23/17 10/23/17 10/23/17 Range/Units 07:31 07:31 08:12 WBC (4.3-11.1) K/mcL RBC (4.19-5.50) M/mcL Hgb (12.9-16.9) g/dL Hct (37.5-50.1) % MCV (83.0-100.0) fL MCH (28.0-33.3) pg MCHC (31.6-35.5) g/dL RDW (11.5-14.5) % Plt Count (140-400) K/mcL MPV (9.4-12.4) fL Immature Gran % (0-4) % Seg Neutrophils % % Lymphocytes % % Monocytes % % Eosinophils % % Basophils % % Neutrophils # (1.6-8.9) K/mcL Lymphocytes # (0.6-4.6) K/mcL Monocytes # (0.0-1.3) K/mcL Eosinophils # (0.0-0.6) K/mcL Basophils # (0.0-0.2) K/mcL Sodium 134 L (136-145) mEq/L Potassium 3.8 (3.5-5.1) mEq/L Chloride 102 (98-107) mEq/L Carbon Dioxide 26 (23-29) mEq/L BUN 6 (6-20) mg/dL Creatinine 0.42 L (0.70-1.30) mg/dL Est GFR ( Amer) > 60 (> 60) Est GFR (Non-Af Amer) > 60 (> 60) BUN/Creatinine Ratio 14 (6-26) Glucose 122 H (70-105) mg/dL Calculated Osmolality 277 L (280-300) Lactic Acid 0.9 (0.5-2.2) mmol/L Calcium 8.6 (8.6-10.3) mg/dL Total Bilirubin 1.1 H (0.3-1.0) mg/dL Direct Bilirubin 0.4 H (0.0-0.2) mg/dL Indirect Bilirubin 0.7 (0.0-1.2) mg/dL AST 16 (13-39) Units/L ALT 12 (7-52) Units/L Alkaline Phosphatase 285 H (34-104) Units/L Serum Total Protein 6.9 (6.4-8.9) g/dL Albumin 3.2 L (3.5-5.7) g/dL Globulin 3.7 H (2.4-3.5) g/dL Albumin/Globulin Ratio 0.9 L (1.1-2.2) Lipase 31 (11-82) Units/L Urine Color (Yellow) Urine Clarity (Clear) Urine pH (5.0-8.0) pH Units Ur Specific [place] (1.010-1.025) Urine Protein (Neg-Trace) mg/dL Urine Glucose (UA) (Normal) mg/dL Urine Ketones (Negative) mg/dL Urine Blood (Negative) Urine Nitrite (Negative) Urine Bilirubin (Negative) Urine Urobilinogen (Normal) mg/dL Ur Leukocyte Esterase (Negative) Urine Microscopic RBC (0-3) per hpf Urine Microscopic WBC (0-3) per hpf Ur Squamous Epith Cells (None-Few) per lpf Urine Bacteria (None-Few) per hpf Hyaline Casts (None-Few) per lpf Ur Culture Indicated? (NO) Ethyl Alcohol (0-10) mg/dL Specimen Rejected Hemolyzed - Radiology Data Radiology results reviewed: Yes I reviewed the patient's radiology results. Abdomen/Pelvis CT 10/23/17 08:13 IMPRESSION: 1. Findings are consistent with acute on chronic pancreatitis. There are stable pseudocysts present in the left upper quadrant. D/ / 10/23/2017 09:33:17 Joshua Bourne MD / pastora Interpreting Provider: Joshua Bourne MD
[2017-10-23 07:04] LABS: Bacteria,Urine None Seen per hpf (None-Few); Hyaline Casts,Urine None Seen per lpf (None-Few); Squamous Epithelial Cell,Urine Moderate per lpf (None-Few)
[2017-10-23 07:15] LABS: Basophils # 0.1 K/mcL (0.0-0.2); Basophils % 0.3 %; Eosinophils % 0.2 %; Hematocrit 51.5 % (37.5-50.1); Hemoglobin 17.6 g/dL (12.9-16.9); Immature Granulocytes % 0.3 % (0-4); Lymphocytes # 1.8 K/mcL (0.6-4.6); Lymphocytes % 11.6 %; Mean Corpuscular HGB Conc 34.2 g/dL (31.6-35.5); Mean Corpuscular Hemoglobin 32.8 pg (28.0-33.3); Mean Corpuscular Volume 96.1 fL (83.0-100.0); Mean Platelet Volume 10.3 fL (9.4-12.4); Monocytes # 1.4 K/mcL (0.0-1.3); Monocytes % 8.9 %; Neutrophils # 12.3 K/mcL (1.6-8.9); Platelet Count 218 K/mcL (140-400); Red Blood Count 5.36 M/mcL (4.19-5.50); Red Cell Distribution Width 12.8 % (11.5-14.5); Segmented Neutrophils % 78.7 %
[2017-10-23 07:26] LABS: RBC,Urine 15-30 per hpf (0-3)
[2017-10-23 08:38] LABS: Alanine Aminotransferase 12 Units/L (7-52); Albumin 3.2 g/dL (3.5-5.7); Albumin/Globulin Ratio 0.9 (1.1-2.2); Alkaline Phosphatase 285 Units/L (34-104); Aspartate Amino Transferase 16 Units/L (13-39); BUN/Creatinine Ratio 14 (6-26); Bilirubin,Direct 0.4 mg/dL (0.0-0.2); Bilirubin,Indirect 0.7 mg/dL (0.0-1.2); Bilirubin,Total 1.1 mg/dL (0.3-1.0); Blood Urea Nitrogen 6 mg/dL (6-20); Calcium 8.6 mg/dL (8.6-10.3); Carbon Dioxide 26 mEq/L (23-29); Chloride 102 mEq/L (98-107); Globulin 3.7 g/dL (2.4-3.5); Glucose 122 mg/dL (70-105); Lipase 31 Units/L (11-82); Osmolality,Calculated 277 (280-300); Potassium 3.8 mEq/L (3.5-5.1); Sodium 134 mEq/L (136-145); Total Protein 6.9 g/dL (6.4-8.9); eGFR For Non-African Americans > 60 (> 60)
[2017-10-23] MEDS ORDERED: Mag Hydrox/Al Hydrox/Simeth 30 ML UDC PO PRN (10:52)
[2017-10-23] MEDS ORDERED: Naloxone 0.4 MG/ML INJ IVP PRN (10:52)
[2017-10-23] MEDS: D5% in 0.45% NACL 1,000 ML IVC SCH ×2 (12:30→20:30)
[2017-10-23] MEDS: Pantoprazole 40 MG VIAL IVP SCH ×2 (12:30→17:22)
[2017-10-23] MEDS: *HR* FentaNYL (PF) 100 MCG/2 ML VIAL IVP PRN ×4 (12:30→21:55)
[2017-10-23] MEDS: Nicotine 7 MG PATCH.TD24 TD SCH (12:30)
[2017-10-23] MEDS: Sucralfate 1 GM TABLET PO SCH ×3 (12:30→20:30)
--- NOTE | 2017-10-23 13:01 | Internal Med History&Physical ---
Date of Encounter: 10/23/17 Time of Encounter: 10:00 Assessment and Plan (1) Acute on chronic pancreatitis Current visit: No Status: Acute We will place the patient into Med Surg for observation Reviewed his CT of Abd showed acute on chronic pancreatitis however his lipase is WNL will keep him NPO for now IV hydration IV Zofran / Phenergan PRN IV analgesics PRN Repeat lipase, CMP in AM (2) Intractable abdominal pain Current visit: No Status: Acute due to pancreatitis continue symptomatic and supportive care (3) Cirrhosis Current visit: No Status: Chronic Qualifiers: Hepatic cirrhosis type: alcoholic cirrhosis Ascites presence: without ascites Qualified Code(s): K70.30 - Alcoholic cirrhosis of liver without ascites (4) Tobacco dependence Current visit: Yes Status: Acute counseled to quit on nicotine patch Internal Medicine - H&P: HPI Chief complaint: Abdomminal pain Admitted From: Emergency Dept Plans for Post Hospital Care: Home History of present illness: Mr. Carlisle is a 42 year old male with known alcohol induced cirrhosis of liver in remission from last 3 yrs, he also have chronic pancreatitis, and f/u with GI from [facility] now he presented to our ER c/o abdominal pain with nausea and vomiting since last 2 days. He stated his abdominal dylon 8/10 in severity, located epigastric and enriqueta umbilical region, radiating to his back and relived with IN analgesics. Denied any CP / SOB. Denied any melena / hematemesis. Past Med Surg Social Fam HX - Past Medical History Medical history: arthritis, cirrhosis, GERD, liver disease, osteoporosis, other Psychiatric history: no psych history - Past Surgical History Surgical History: other - Social History Smoking Status: Current every day smoker Packs per day: 0.5 Smokeless Tobacco Status: No Alcohol use: none Drug use: none - Family History Father Name: Dominic carlisle Family Member Ethnicity: Non- Living Status: Age at : 58 Cause of : colon cancer Hx Family Cancer: Yes (colon) Mother History Unknown: Yes Living Status: Still Living Internal Medicine - H&P: Meds Ascorbic Acid [Vitamin C] 1,000 mg PO DAILY 07/04/16 [History] Omeprazole 20 mg PO TID 07/04/16 [History] Sucralfate [Carafate] 1 gm PO QIDAC #120 tablet 07/04/16 [Rx] Vitamin A 10,000 unit PO DAILY 07/04/16 [History] Vitamin B Complex 1 cap PO DAILY 07/04/16 [History] Oxycodone HCl/Acetaminophen [Percocet 5-325 mg Tablet] 1 tab PO Q4-6H PRN [History] 3 Allergy/AdvReac Type Severity Reaction Status Date / Time No Known Allergies Allergy Verified 10/23/17 06:25 All Systems PM: A 10-system review of systems was performed and is negative for pertinent findings except as documented above in the HPI. Review of systems: All the systems are reviewed everything is benign except the systems and symptoms I mentioned in the history of present illness - Constitutional Vitals: Temp Pulse Resp BP Pulse Ox 99.6 F 76 16 119/79 96 10/23/17 12:32 10/23/17 12:32 10/23/17 12:32 10/23/17 12:32 10/23/17 12:32 General appearance: Present: mild distress (with pain), A&O X 3, answers questions appropriately - Head Head exam: Present: atraumatic, normal inspection - Neck Neck exam general surgery: Present: supple - Respiratory Respiratory exam: Present: decreased breath sounds. Absent: rales, respiratory distress, rhonchi, wheezes - Cardiovascular Cardiovascular exam: Present: RRR, +S1, +S2. Absent: systolic murmur, tachycardia - GI/Abdominal GI/Abdominal exam: Present: normal bowel sounds, soft, tenderness (Epigastric and enriqueta umbelical region). Absent: distended, guarding, rebound, rigid - Extremities Exam Extremities exam: Absent: calf tenderness, pedal edema, tenderness - Back Exam Back exam: Absent: CVA tenderness (L), CVA tenderness (R) - Neurological Exam Neurological exam: Present: alert, oriented X3 - Psychiatric Psychiatric exam: Present: normal affect, normal mood - Skin Skin exam: Absent: rash Internal Med - H&P Results - Labs CBC & Chem 7: 10/23/17 06:25 10/23/17 08:12
[2017-10-23] MEDS: Ondansetron 4 MG/2 ML VIAL IVP PRN ×2 (15:45→18:56)
[2017-10-24] MEDS: *HR* FentaNYL (PF) 100 MCG/2 ML VIAL IVP PRN ×8 (00:53→20:54)
[2017-10-24] MEDS: *HR* Promethazine 25 MG/ML VIAL IVP PRN (00:53)
[2017-10-24] MEDS ORDERED: Melatonin 3 MG TABLET PO ONE (01:53)
[2017-10-24 05:28] LABS: Basophils % 0.3 %; Eosinophils % 0.3 %; Hematocrit 48.6 % (37.5-50.1); Hemoglobin 16.4 g/dL (12.9-16.9); Immature Granulocytes % 0.5 % (0-4); Lymphocytes # 1.7 K/mcL (0.6-4.6); Lymphocytes % 10.8 %; Mean Corpuscular HGB Conc 33.7 g/dL (31.6-35.5); Mean Corpuscular Hemoglobin 32.6 pg (28.0-33.3); Mean Corpuscular Volume 96.6 fL (83.0-100.0); Mean Platelet Volume 11.4 fL (9.4-12.4); Monocytes # 1.3 K/mcL (0.0-1.3); Monocytes % 8.5 %; Neutrophils # 12.4 K/mcL (1.6-8.9); Platelet Count 158 K/mcL (140-400); Red Blood Count 5.03 M/mcL (4.19-5.50); Red Cell Distribution Width 12.6 % (11.5-14.5); Segmented Neutrophils % 79.6 %
[2017-10-24 06:09] LABS: Alanine Aminotransferase 10 Units/L (7-52); Albumin 3.2 g/dL (3.5-5.7); Albumin/Globulin Ratio 0.8 (1.1-2.2); Alkaline Phosphatase 257 Units/L (34-104); Aspartate Amino Transferase 14 Units/L (13-39); BUN/Creatinine Ratio 8 (6-26); Bilirubin,Total 1.1 mg/dL (0.3-1.0); Blood Urea Nitrogen 4 mg/dL (6-20); Calcium 8.8 mg/dL (8.6-10.3); Carbon Dioxide 26 mEq/L (23-29); Chloride 99 mEq/L (98-107); Chol/HDL Ratio 2.5 (0-4.9); Cholesterol 75 mg/dL (< 200); Globulin 3.8 g/dL (2.4-3.5); Glucose 151 mg/dL (70-105); HDL Cholesterol 30 mg/dL (40-59); LDL Cholesterol,Calculated 33 mg/dL (0-99); Lipase 36 Units/L (11-82); Magnesium 1.8 mg/dL (1.6-2.6); Osmolality,Calculated 276 (280-300); Potassium 3.5 mEq/L (3.5-5.1); Sodium 133 mEq/L (136-145); Triglycerides 59 mg/dL (< 150); eGFR For Non-African Americans > 60 (> 60)
[2017-10-24] MEDS: Pantoprazole 40 MG VIAL IVP SCH ×2 (06:41→17:52)
[2017-10-24] MEDS: Sucralfate 1 GM TABLET PO SCH ×4 (06:41→20:55)
[2017-10-24] MEDS: (Vitamin A [Vitamin A] 10,000 UNIT) PO SCH (09:00)
[2017-10-24] MEDS: Ascorbic Acid 500 MG TABLET PO SCH (09:03)
[2017-10-24] MEDS: Nicotine 7 MG PATCH.TD24 TD SCH (09:03)
[2017-10-24] MEDS: Vitamin B Complex/Vit C/Vit E 1 EACH TABLET PO SCH (09:03)
[2017-10-24] MEDS: 0.9 % Sodium Chloride 1,000 ML IVC SCH ×2 (12:38→20:55)
--- NOTE | 2017-10-24 15:23 | Internal Med Progress Note ---
Date of Encounter: 10/24/17 Time of Encounter: 15:18 - Assessment and plan (1) Acute on chronic pancreatitis Current Visit: No Status: Acute Assessment and plan: hx chronic pancreatitis secondary to EtOH. Presented with abdominal pain. ABD CT showed pancreatic calcifications consistent with chronic pancreatitis in addition to moderate acute inflammatory change started the pancreatic tail indicative of acute on chronic pancreatitis. Lipase normal, total and direct bilirubin slightly elevated. Alkaline phosphatase trending down. Suspect mild pancreatitis as no evidence of end organ dysfunction. Cont aggressive IV fluids , NPO for now. Can advance diet once ABD resolved. Blood cultures pending. No indication for ATB at this time. (2) DVT prophylaxis Current Visit: No Status: Acute Assessment and plan: heparin - Subjective Interval history: Seen and examined at bedside. Patient is new to me. Information obtained from chart review patient report. He is feeling a little better but still having some abdominal pain with associated nausea. He does not feel like eating at this time. Says pain medicine is only lasting approximately 2 hours. No fevers or chills. - Constitutional Vitals: Temp Pulse Resp BP Pulse Ox 99.0 F 73 16 116/74 98 10/24/17 14:56 10/24/17 14:56 10/24/17 14:56 10/24/17 14:56 10/24/17 14:56 General appearance: Present: A&O X 3, no acute distress, answers questions appropriately - Head Head exam: Present: atraumatic, normocephalic - Eye Eye exam: Present: PERRL, conjuntiva pink, sclera anicteric Pupils: Present: PERRL - Neck Neck exam general surgery: Present: supple, trachea midline. Absent: lymphadenopathy - Respiratory Respiratory exam: Present: CTAB. Absent: accessory muscle use, rales, rhonchi, wheezes - Cardiovascular Cardiovascular exam: Present: RRR, +S1, +S2. Absent: diastolic murmur, gallop, rubs, systolic murmur - GI/Abdominal GI/Abdominal exam: Present: normal bowel sounds, soft, tenderness, no peritoneal signs. Absent: distended - Extremities Exam Extremities exam: Present: warm, radial pulses palpable and symmetrical. Absent : calf tenderness, cyanotic, pedal edema - Neurological Exam Neurological exam: Present: CN II-XII intact, oriented X3, no focal deficits. Absent: pronater drift, facial droop, speech deficit - Skin Skin exam: Present: dry, intact Internal Medicine: Result - Labs CBC & Chem 7: 10/24/17 04:45 10/24/17 04:45 Labs: Short CBC 10/24/17 Range/Units 04:45 WBC 15.6 H (4.3-11.1) K/mcL Hgb 16.4 (12.9-16.9) g/dL Hct 48.6 (37.5-50.1) % Plt Count 158 (140-400) K/mcL Neutrophils # 12.4 H (1.6-8.9) K/mcL BMP 10/24/17 04:45 Sodium 133 L Potassium 3.5 Chloride 99 Carbon Dioxide 26 BUN 4 L Creatinine 0.53 L Glucose 151 H Calcium 8.8 Liver Function 10/24/17 Range/Units 04:45 Total Bilirubin 1.1 H (0.3-1.0) mg/dL AST 14 (13-39) Units/L ALT 10 (7-52) Units/L Alkaline Phosphatase 257 H (34-104) Units/L Albumin 3.2 L (3.5-5.7) g/dL Consult Discharge Plan - Plan Referrals: Josiah Jimenez Jr, MD [Primary Care Provider] -
[2017-10-24] MEDS: *HR* OxyCODONE Immed Rel 5 MG TABLET PO PRN ×2 (15:30→23:18)
[2017-10-25] MEDS: *HR* FentaNYL (PF) 100 MCG/2 ML VIAL IVP PRN ×9 (01:17→23:52)
[2017-10-25 04:47] LABS: Hematocrit 45.7 % (37.5-50.1); Mean Corpuscular Hemoglobin 33.8 pg (28.0-33.3); Mean Corpuscular Volume 96.4 fL (83.0-100.0); Mean Platelet Volume 10.4 fL (9.4-12.4); Platelet Count 211 K/mcL (140-400); Red Blood Count 4.74 M/mcL (4.19-5.50); Red Cell Distribution Width 12.3 % (11.5-14.5)
[2017-10-25 05:12] LABS: Alanine Aminotransferase 9 Units/L (7-52); Albumin 3.1 g/dL (3.5-5.7); Albumin/Globulin Ratio 0.8 (1.1-2.2); Alkaline Phosphatase 222 Units/L (34-104); Aspartate Amino Transferase 16 Units/L (13-39); BUN/Creatinine Ratio 9 (6-26); Bilirubin,Total 0.9 mg/dL (0.3-1.0); Blood Urea Nitrogen 5 mg/dL (6-20); Calcium 8.6 mg/dL (8.6-10.3); Carbon Dioxide 25 mEq/L (23-29); Chloride 103 mEq/L (98-107); Globulin 3.7 g/dL (2.4-3.5); Glucose 93 mg/dL (70-105); Osmolality,Calculated 277 (280-300); Potassium 3.5 mEq/L (3.5-5.1); Sodium 135 mEq/L (136-145); Total Protein 6.8 g/dL (6.4-8.9); eGFR For Non-African Americans > 60 (> 60)
[2017-10-25] MEDS: *HR* OxyCODONE Immed Rel 5 MG TABLET PO PRN ×3 (05:39→14:24)
[2017-10-25] MEDS: 0.9 % Sodium Chloride 1,000 ML IVC SCH ×3 (06:16→21:50)
[2017-10-25] MEDS: Pantoprazole 40 MG VIAL IVP SCH ×2 (06:17→17:32)
[2017-10-25] MEDS: Sucralfate 1 GM TABLET PO SCH ×4 (06:17→21:49)
[2017-10-25] MEDS: Vitamin B Complex/Vit C/Vit E 1 EACH TABLET PO SCH (07:42)
[2017-10-25] MEDS: Nicotine 7 MG PATCH.TD24 TD SCH (07:42)
[2017-10-25] MEDS: Ascorbic Acid 500 MG TABLET PO SCH (07:42)
[2017-10-25] MEDS: (Vitamin A [Vitamin A] 10,000 UNIT) PO SCH (07:43)
--- NOTE | 2017-10-25 16:03 | Internal Med Progress Note ---
Date of Encounter: 10/25/17 Time of Encounter: 15:56 - Assessment and plan (1) Acute on chronic pancreatitis Current Visit: No Status: Acute Assessment and plan: hx chronic pancreatitis secondary to EtOH. Presented with abdominal pain. ABD CT showed pancreatic calcifications consistent with chronic pancreatitis in addition to moderate acute inflammatory change started the pancreatic tail indicative of acute on chronic pancreatitis. Lipase normal, total and direct bilirubin slightly elevated. Alkaline phosphatase trending down. Suspect mild pancreatitis as no evidence of end organ dysfunction. Cont aggressive IV fluids , NPO for now. Can advance diet once ABD resolved. Blood cultures pending. No indication for ATB at this time. (2) Leukocytosis Current Visit: Yes Status: Acute Assessment and plan: WBC 16K, in the setting of acute pancreatitis. Lactic acid normal. No hypotension or tachycardia. Hold on ATB. Blood cx pending Qualifiers: Leukocytosis type: unspecified Qualified Code(s): D72.829 - Elevated white blood cell count, unspecified (3) DVT prophylaxis Current Visit: No Status: Acute Assessment and plan: heparin - Subjective Interval history: Seen and examined at bedside. Initially patient had said he felt better, was having less abdominal pain. Wanted to try oral intake. He attempted clear liquids with persistent abdominal pain requiring continued IV pain medicine. He is agreeable to go back to nothing by mouth at this time. - Constitutional Vitals: Temp Pulse Resp BP Pulse Ox 99.5 F 73 16 120/72 97 10/25/17 15:41 10/25/17 15:41 10/25/17 15:41 10/25/17 15:41 10/25/17 15:41 General appearance: Present: A&O X 3, no acute distress, answers questions appropriately - Head Head exam: Present: atraumatic, normocephalic - Eye Eye exam: Present: PERRL, conjuntiva pink, sclera anicteric Pupils: Present: PERRL - Neck Neck exam general surgery: Present: supple, trachea midline. Absent: lymphadenopathy - Respiratory Respiratory exam: Present: CTAB. Absent: accessory muscle use, rales, rhonchi, wheezes - Cardiovascular Cardiovascular exam: Present: RRR, +S1, +S2. Absent: diastolic murmur, gallop, rubs, systolic murmur - GI/Abdominal GI/Abdominal exam: Present: normal bowel sounds, soft, tenderness, no peritoneal signs. Absent: distended - Extremities Exam Extremities exam: Present: warm, radial pulses palpable and symmetrical. Absent : calf tenderness, cyanotic, pedal edema - Neurological Exam Neurological exam: Present: CN II-XII intact, oriented X3, no focal deficits. Absent: pronater drift, facial droop, speech deficit - Skin Skin exam: Present: dry, intact Internal Medicine: Result - Labs CBC & Chem 7: 10/25/17 03:44 10/25/17 03:44 Labs: Short CBC 10/25/17 Range/Units 03:44 WBC 14.5 H (4.3-11.1) K/mcL Hgb 16.0 (12.9-16.9) g/dL Hct 45.7 (37.5-50.1) % Plt Count 211 (140-400) K/mcL BMP 10/25/17 03:44 Sodium 135 L Potassium 3.5 Chloride 103 Carbon Dioxide 25 BUN 5 L Creatinine 0.54 L Glucose 93 Calcium 8.6 Liver Function 10/25/17 Range/Units 03:44 Total Bilirubin 0.9 (0.3-1.0) mg/dL AST 16 (13-39) Units/L ALT 9 (7-52) Units/L Alkaline Phosphatase 222 H (34-104) Units/L Albumin 3.1 L (3.5-5.7) g/dL Consult Discharge Plan - Plan Referrals: Josiah Jimenez Jr, MD [Primary Care Provider] -
[2017-10-25] MEDS ORDERED: *HR* OxyCODONE Immed Rel 5 MG TABLET PO PRN (17:20)
[2017-10-25] MEDS: *HR* Promethazine 25 MG/ML VIAL IVP PRN (22:24)
[2017-10-26] MEDS: *HR* FentaNYL (PF) 100 MCG/2 ML VIAL IVP PRN ×10 (03:06→23:08)
[2017-10-26] MEDS: 0.9 % Sodium Chloride 1,000 ML IVC SCH ×3 (05:27→20:34)
[2017-10-26] MEDS: Pantoprazole 40 MG VIAL IVP SCH ×2 (05:27→16:43)
[2017-10-26] MEDS: Sucralfate 1 GM TABLET PO SCH ×4 (06:25→20:30)
[2017-10-26 06:50] LABS: Alanine Aminotransferase 8 Units/L (7-52); Albumin 2.8 g/dL (3.5-5.7); Albumin/Globulin Ratio 0.8 (1.1-2.2); Alkaline Phosphatase 194 Units/L (34-104); Aspartate Amino Transferase 16 Units/L (13-39); BUN/Creatinine Ratio 6 (6-26); Bilirubin,Total 0.8 mg/dL (0.3-1.0); Blood Urea Nitrogen 3 mg/dL (6-20); Calcium 8.3 mg/dL (8.6-10.3); Carbon Dioxide 23 mEq/L (23-29); Chloride 104 mEq/L (98-107); Globulin 3.3 g/dL (2.4-3.5); Glucose 78 mg/dL (70-105); Osmolality,Calculated 277 (280-300); Potassium 3.3 mEq/L (3.5-5.1); Sodium 136 mEq/L (136-145); Total Protein 6.1 g/dL (6.4-8.9); eGFR For Non-African Americans > 60 (> 60)
[2017-10-26] MEDS: Ascorbic Acid 500 MG TABLET PO SCH (07:53)
[2017-10-26] MEDS: Vitamin B Complex/Vit C/Vit E 1 EACH TABLET PO SCH (07:53)
[2017-10-26] MEDS: (Vitamin A [Vitamin A] 10,000 UNIT) PO SCH (07:54)
[2017-10-26] MEDS: Nicotine 7 MG PATCH.TD24 TD SCH (07:54)
--- NOTE | 2017-10-26 14:25 | Internal Med Progress Note ---
Date of Encounter: 10/26/17 Time of Encounter: 10:00 - Assessment and plan (1) Acute on chronic pancreatitis Current Visit: No Status: Acute Assessment and plan: 1 Hx of chronic pancreatitis secondary to ETOH. Originally presented with abdominal pain abdominal CT did show pancreatic calcification consistent with chronic pancreatitis as well as monitor acute inflammatory changes starting at the pancreatic tail indicative of acute on chronic pancreatitis. Lipase was normal total bili are normal patient's diet was advanced to clear liquids yesterday which he did not tolerate we will continue with nothing by mouth and IV fluids for now blood cultures were negative-no antibiotics (2) Leukocytosis Current Visit: Yes Status: Acute Assessment and plan: WBC 16k in the setting of acute pancreatitis- this appears to be trending down today 14 we will continue to monitor Qualifiers: Leukocytosis type: unspecified Qualified Code(s): D72.829 - Elevated white blood cell count, unspecified (3) Hypokalemia Current Visit: Yes Status: Acute Assessment and plan: Potassium 3.3 we will replace with IV K rider 10 meq, dt abd pain nausea- most likely rt nausea vomiting (4) DVT prophylaxis Current Visit: No Status: Acute Assessment and plan: heparin - Subjective Interval history: This patient is new to me I Have reviewed medical records. Examined the patient at bedside He does complain of some abd pain and has some diffuse tenderness. Apparently he was advanced to liquid diet yesterday and did not tolerate change in diet. Other than abd pain he denies any pain or discomfort.He is hemodynamically stable at this time - Constitutional Vitals: Temp Pulse Resp BP Pulse Ox 98.3 F 70 17 111/67 97 10/26/17 11:37 10/26/17 11:37 10/26/17 11:37 10/26/17 11:37 10/26/17 11:37 General appearance: Present: A&O X 3, no acute distress, answers questions appropriately - Head Head exam: Present: atraumatic, normocephalic - Eye Eye exam: Present: PERRL, conjuntiva pink, sclera anicteric Pupils: Present: PERRL - Neck Neck exam general surgery: Present: supple, trachea midline. Absent: lymphadenopathy - Respiratory Respiratory exam: Present: CTAB. Absent: accessory muscle use, rales, rhonchi, wheezes - Cardiovascular Cardiovascular exam: Present: RRR, +S1, +S2. Absent: diastolic murmur, gallop, rubs, systolic murmur - GI/Abdominal GI/Abdominal exam: Present: normal bowel sounds, soft, tenderness, no peritoneal signs. Absent: distended - Extremities Exam Extremities exam: Present: warm, radial pulses palpable and symmetrical. Absent : calf tenderness, cyanotic, pedal edema - Neurological Exam Neurological exam: Present: CN II-XII intact, oriented X3, no focal deficits. Absent: pronater drift, facial droop, speech deficit - Skin Skin exam: Present: dry, intact Internal Medicine: Result - Labs CBC & Chem 7: 10/25/17 03:44 10/26/17 05:26 Labs: BMP 10/26/17 05:26 Sodium 136 Potassium 3.3 L Chloride 104 Carbon Dioxide 23 BUN 3 L Creatinine 0.49 L Glucose 78 Calcium 8.3 L Liver Function 10/26/17 Range/Units 05:26 Total Bilirubin 0.8 (0.3-1.0) mg/dL AST 16 (13-39) Units/L ALT 8 (7-52) Units/L Alkaline Phosphatase 194 H (34-104) Units/L Albumin 2.8 L (3.5-5.7) g/dL Consult Discharge Plan - Plan Referrals: Josiah Jimenez Jr, MD [Primary Care Provider] -
[2017-10-27] MEDS: *HR* FentaNYL (PF) 100 MCG/2 ML VIAL IVP PRN ×6 (01:07→13:25)
[2017-10-27] MEDS: Pantoprazole 40 MG VIAL IVP SCH (05:16)
[2017-10-27] MEDS: Sucralfate 1 GM TABLET PO SCH ×2 (06:19→13:28)
[2017-10-27] MEDS: 0.9 % Sodium Chloride 1,000 ML IVC SCH (06:20)
[2017-10-27 06:48] LABS: Basophils # 0.1 K/mcL (0.0-0.2); Basophils % 0.6 %; Eosinophils # 0.2 K/mcL (0.0-0.6); Eosinophils % 1.9 %; Hematocrit 45.9 % (37.5-50.1); Hemoglobin 15.9 g/dL (12.9-16.9); Immature Granulocytes % 0.3 % (0-4); Lymphocytes # 1.6 K/mcL (0.6-4.6); Mean Corpuscular HGB Conc 34.6 g/dL (31.6-35.5); Mean Corpuscular Hemoglobin 33.1 pg (28.0-33.3); Mean Corpuscular Volume 95.6 fL (83.0-100.0); Mean Platelet Volume 10.4 fL (9.4-12.4); Monocytes # 0.6 K/mcL (0.0-1.3); Monocytes % 7.5 %; Neutrophils # 5.4 K/mcL (1.6-8.9); Platelet Count 237 K/mcL (140-400); Red Cell Distribution Width 12.3 % (11.5-14.5); Segmented Neutrophils % 69.7 %
[2017-10-27 07:10] LABS: Alanine Aminotransferase 9 Units/L (7-52); Albumin 2.8 g/dL (3.5-5.7); Albumin/Globulin Ratio 0.9 (1.1-2.2); Alkaline Phosphatase 181 Units/L (34-104); Aspartate Amino Transferase 18 Units/L (13-39); BUN/Creatinine Ratio 4 (6-26); Bilirubin,Total 0.5 mg/dL (0.3-1.0); Blood Urea Nitrogen 2 mg/dL (6-20); Calcium 8.3 mg/dL (8.6-10.3); Carbon Dioxide 25 mEq/L (23-29); Chloride 106 mEq/L (98-107); Globulin 3.2 g/dL (2.4-3.5); Glucose 177 mg/dL (70-105); Osmolality,Calculated 285 (280-300); Potassium 3.3 mEq/L (3.5-5.1); Sodium 137 mEq/L (136-145); eGFR For Non-African Americans > 60 (> 60)
[2017-10-27 08:05] LABS: Platelet Estimate Normal (Normal)
[2017-10-27] MEDS: Vitamin B Complex/Vit C/Vit E 1 EACH TABLET PO SCH (08:35)
[2017-10-27] MEDS: Ascorbic Acid 500 MG TABLET PO SCH (08:35)
[2017-10-27] MEDS: Nicotine 7 MG PATCH.TD24 TD SCH (08:35)
[2017-10-27] MEDS: (Vitamin A [Vitamin A] 10,000 UNIT) PO SCH (08:35)
[2017-10-27] MEDS ORDERED: *HR* FentaNYL (PF) 100 MCG/2 ML VIAL IVP PRN (14:56)
[2017-10-27 15:09] VITALS: BP 124/77
--- NOTE | 2017-10-27 15:13 | Discharge Summary ---
Orders not resulted at time of discharge: Pending orders 10/28/17 04:00 CMP [Comprehensive Metabolic Panel] 04 10/29/17 04:00 CMP [Comprehensive Metabolic Panel] 04 10/30/17 04:00 CMP [Comprehensive Metabolic Panel] 04 Date of Encounter: 10/27/17 Time of Encounter: 15:13 - Discharge Diagnosis (1) Acute on chronic pancreatitis Priority: Primary Status: Acute Comments: 1 CT of abdomen showed acute on chronic pancreatitis lipase is within normal limits patient was kept nothing by mouth and received IV fluids as well as antibiotics and pain medication. Repeat lipase was within normal limits. He has advanced his diet from clear liquids to regular diet. Abdominal pain has greatly improved no pain after eating. he will follow up with his primary care physician he can continue his home pain medications of Roxicodone and Percocet (2) Leukocytosis Priority: Secondary Status: Resolved Comments: This has resolved-7 today Qualifiers: Leukocytosis type: unspecified Qualified Code(s): D72.829 - Elevated white blood cell count, unspecified (3) Hypokalemia Priority: Secondary Status: Acute Comments: We will replace with potassium have patient follow-up with PCP Hospital course: Mr. Carlisle is a 42 year old male past medical history of arthritis alcohol- induced cirrhosis. Liver disease osteoporosis. 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 He presented to the ER with complaints of abdominal pain with nausea and vomiting over [address] of abdomen showed acute on chronic pancreatitis lipase was within normal limits repeat lipase continue to be normal he was made nothing by mouth and given IV hydration as well as Zofran and IV analgesia. Advanced his diet to clear liquids to regular he has been tolerating diet without any pain nausea or vomiting. Lab work initially showed some leukocytosis however he had no fever and it resolved on its own all lab work is within normal limits. Patient is ambulating in the halls and requesting to be discharged home. Advised patient to follow-up with PCP and continue with home pain medications. Patient verbalized understanding and is ready to be discharged - Time Spent with Patient Total time spent providing and/or coordinating discharge services: - Discharge Medications Home Medications: Ascorbic Acid [Vitamin C] 1,000 mg PO DAILY 07/04/16 [History] Omeprazole 20 mg PO TID 07/04/16 [History] Sucralfate [Carafate] 1 gm PO QIDAC #120 tablet 07/04/16 [Rx] Vitamin A 10,000 unit PO DAILY 07/04/16 [History] Vitamin B Complex 1 cap PO DAILY 07/04/16 [History] Oxycodone HCl/Acetaminophen [Percocet 5-325 mg Tablet] 1 tab PO Q4-6H PRN [History] Allergies/Adverse Reactions: 3 Allergy/AdvReac Type Severity Reaction Status Date / Time No Known Allergies Allergy Verified 10/23/17 06:25 Date of admission: 10/24/17 16:20 Primary care physician: Josiah Jimenez Jr, MD Discharging clinician: Yecenia Oliveros Anticipated date of discharge: 10/27/17 - Constitutional Vitals: Temp Pulse Resp BP Pulse Ox 98.0 F 70 15 124/77 100 10/27/17 15:08 10/27/17 15:08 10/27/17 15:08 10/27/17 15:08 10/27/17 15:08 General appearance: Present: A&O X 3, no acute distress, answers questions appropriately - Head Head exam: Present: atraumatic, normocephalic - Eye Eye exam: Present: PERRL, conjuntiva pink, sclera anicteric Pupils: Present: PERRL - Neck Neck exam general surgery: Present: supple, trachea midline. Absent: lymphadenopathy - Respiratory Respiratory exam: Present: CTAB. Absent: accessory muscle use, rales, rhonchi, wheezes - Cardiovascular Cardiovascular exam: Present: RRR, +S1, +S2. Absent: diastolic murmur, gallop, rubs, systolic murmur - GI/Abdominal GI/Abdominal exam: Present: normal bowel sounds, soft, no peritoneal signs. Absent: distended, tenderness - Extremities Exam Extremities exam: Present: warm, radial pulses palpable and symmetrical. Absent : calf tenderness, cyanotic, pedal edema - Neurological Exam Neurological exam: Present: CN II-XII intact, oriented X3, no focal deficits. Absent: pronater drift, facial droop, speech deficit - Skin Skin exam: Present: dry, intact - Patient Status Disposition: Home, Self-Care Condition: Fair Functional capacity at discharge: independent ambulation Overall status at discharge: patient is back to baseline - Discharge Instructions Instructions: Pancreatitis (DC) Follow Up With: Josiah Jimenez Jr, MD [Primary Care Provider] - - Diet and Activity Activity: increase activity as tolerated Diet: advance to your usual diet
== END 2017-10-27 17:55 | disposition home or self-care (01) | DRG 282 ==
LOC: 3BNU 06:22 → EMEROO 06:22 → 3BNU 11:37
PROVIDERS: ADMIT Family Medicine; ATTEND Registered Nurse

== ENCOUNTER 2017-11-23 11:26 | Observation (INO) ==
[2017-11-23] MEDS ORDERED: Ondansetron 4 MG/2 ML VIAL IVP ONE ×3 (11:38→16:37)
[2017-11-23] MEDS ORDERED: 0.9 % Sodium Chloride 1,000 ML IVC ONE (11:38)
[2017-11-23] MEDS ORDERED: *HR* FentaNYL (PF) 100 MCG/2 ML VIAL IVP ONE ×4 (11:38→16:37)
--- NOTE | 2017-11-23 11:41 | Emergency Department Note ---
Disposition Clinical Impression: Acute on chronic pancreatitis Abdominal pain Qualifiers: Abdominal location: unspecified location Qualified Code(s): R10.9 - Unspecified abdominal pain Disposition: Admitted As Inpatient Condition: Undetermined Referrals: Josiah Jimenez Jr, MD [Primary Care Provider] - Forms: ED Satisfaction Letter, Work/School Release Time of Disposition: 16:13 Abdominal Pain HPI - General Chief Complaint: ED Abdominal Pain Stated Complaint: abd pain Time Seen by Provider: 11/23/17 11:29 Source: patient Mode of arrival: ambulatory Limitations: no limitations Nursing Notes Reviewed: Yes Vital Signs Reviewed: Yes - History of Present Illness HPI Narrative: 42-year-old male with history of chronic pancreatitis arrives to the emergency department with complaint of periumbilical and epigastric discomfort which is very similar to her previous pancreatitis in the past. The patient denies any other complaints other than associated nausea without vomiting. He states this is identical to his previous pancreatitis. The patient has a history of pancreatic stents and pancreatic stent removal. His last admission for chronic otitis as roughly 1 month ago where he was admitted for 4 days for pain control. The patient takes daily Percocet. He denies any other complaints at this time. He is resting very comfortably in the room but is holding his abdomen on examination. Pain Scale: 8 - Related Data Home Medications Medication Instructions Recorded Confirmed Ascorbic Acid [Vitamin C] 1,000 mg PO DAILY 07/04/16 11/23/17 Omeprazole 20 mg PO TID 07/04/16 11/23/17 Vitamin A 10,000 unit PO DAILY 07/04/16 11/23/17 Vitamin B Complex 1 cap PO DAILY 07/04/16 11/23/17 Oxycodone HCl/Acetaminophen 1 tab PO Q4-6H PRN 10/23/17 11/23/17 [Percocet 5-325 mg Tablet] Previous Rx's Medication Instructions Recorded Sucralfate [Carafate] 1 gm PO QIDAC #120 tablet 07/04/16 Allergies Allergy/AdvReac Type Severity Reaction Status Date / Time No Known Allergies Allergy Verified 10/23/17 06:25 All systems ED: reviewed and negative except as stated. Constitutional: Reports: weakness. Denies: fever, chills ENT ED: Denies: congestion Cardiovascular: Denies: chest pain Respiratory: Denies: dyspnea Gastrointestinal: Reports: abdominal pain, nausea. Denies: vomiting, diarrhea, constipation, hematemesis, melena, hematochezia Genitourinary: Denies: urgency, dysuria Musculoskeletal: Denies: back pain, neck pain, arthralgia, myalgia Integumentary: Denies: rash Neurological: Reports: weakness. Denies: headache, numbness, paresthesias, confusion Abdominal Pain PMH - Past Medical History Medical history: Reports: arthritis, cirrhosis, GERD, liver disease, osteoporosis, other Reports: pancreatitis Male Surgical History: Reports: other Psychiatric history: Reports: no psych history - Social History Smoking status: Current every day smoker Alcohol use: Reports: none Drug use: Reports: none Physical Exam - General Limitations: no limitations General appearance: alert, in no apparent distress - Head Head exam: atraumatic, normocephalic, normal inspection - Eye Eye exam: Present: normal appearance, PERRL, EOMI - ENT ENT exam: normal exam, normal oropharynx, mucous membranes moist - Neck Neck exam: Present: normal inspection, full ROM, trachea midline - Chest Chest inspection: Present: normal inspection, symmetric chest wall rise - Respiratory Respiratory exam: Present: normal lung sounds bilaterally - Cardiovascular Cardiovascular exam: Present: regular rate, normal rhythm, normal heart sounds - Abdominal Exam Abdominal exam: Present: soft, tenderness (Kaity-umbilical and epigastric). Absent: distention, guarding, rebound, hyperactive bowel sounds - Extremities Exam Extremities exam: Present: normal inspection, full ROM. Absent: tenderness, pedal edema - Neurological Exam Neurological exam: Present: alert, oriented X3 - Skin Skin exam: Present: warm, dry, intact, normal color Course Vital Signs Temperature 98.5 F 11/23/17 11:31 Pulse Rate 90 11/23/17 11:31 Respiratory Rate 18 11/23/17 11:31 Blood Pressure 139/89 11/23/17 11:31 O2 Sat by Pulse Oximetry 98 11/23/17 11:31 Temperature 98.5 F 11/23/17 11:39 Pulse Rate 68 11/23/17 14:31 Respiratory Rate 15 11/23/17 14:31 Blood Pressure 140/101 11/23/17 14:31 O2 Sat by Pulse Oximetry 99 11/23/17 14:31 Oxygen Delivery Oxygen Delivery Room Air Abdominal Pain - MDM Narrative Medical decision making narrative: Patient's lab work demonstrates no pancreatitis but the patient states this is not unusual for him. The patient's CT scan demonstrates acute pancreatitis overlying chronic pancreatitis as well as perisplenic pseudocyst which she is not change from previous CT scan. Given the patient's pain control and need for IV hydration we will admit the patient to the hospital for further care and workup at this time. The patient made aware and agrees to plan. No further questions or concerns noted at this time. Accepted by Dr. Sosa - Lab Data Lab results reviewed: Yes I reviewed the patient's lab results. Result diagrams: 11/23/17 13:29 11/23/17 12:41 Lab Results 11/23/17 11/23/17 11/23/17 Range/Units 12:41 12:41 13:29 WBC 10.1 (4.3-11.1) K/mcL RBC 5.22 (4.19-5.50) M/mcL Hgb 17.1 H (12.9-16.9) g/dL Hct 49.5 (37.5-50.1) % MCV 94.8 (83.0-100.0) fL MCH 32.8 (28.0-33.3) pg MCHC 34.5 (31.6-35.5) g/dL RDW 13.5 (11.5-14.5) % Plt Count 219 (140-400) K/mcL MPV 9.7 (9.4-12.4) fL Immature Gran % 0.5 (0-4) % Seg Neutrophils % 74.6 % Lymphocytes % 15.4 % Monocytes % 6.7 % Eosinophils % 2.1 % Basophils % 0.7 % Neutrophils # 7.6 (1.6-8.9) K/mcL Lymphocytes # 1.6 (0.6-4.6) K/mcL Monocytes # 0.7 (0.0-1.3) K/mcL Eosinophils # 0.2 (0.0-0.6) K/mcL Basophils # 0.1 (0.0-0.2) K/mcL Nucleated RBCs/100 WBC 0.2 H (0) /100 WBC Sodium 137 (136-145) mEq/L Potassium 4.0 (3.5-5.1) mEq/L Chloride 106 (98-107) mEq/L Carbon Dioxide 24 (23-29) mEq/L BUN 3 L (6-20) mg/dL Creatinine 0.57 L (0.70-1.30) mg/dL Est GFR ( Amer) > 60 (> 60) Est GFR (Non-Af Amer) > 60 (> 60) BUN/Creatinine Ratio 5 L (6-26) Glucose 131 H (70-105) mg/dL Calculated Osmolality 282 (280-300) Calcium 8.9 (8.6-10.3) mg/dL Total Bilirubin 0.8 (0.3-1.0) mg/dL AST 48 H (13-39) Units/L ALT 33 (7-52) Units/L Alkaline Phosphatase 383 H (34-104) Units/L Troponin I < 0.03 (< 0.04) ng/mL Serum Total Protein 7.4 (6.4-8.9) g/dL Albumin 3.6 (3.5-5.7) g/dL Globulin 3.8 H (2.4-3.5) g/dL Albumin/Globulin Ratio 0.9 L (1.1-2.2) Lipase 23 (11-82) Units/L Specimen Rejected Clotted - Radiology Data Radiology results reviewed: Yes I reviewed the patient's radiology results. Abdomen/Pelvis CT 11/23/17 11:37 IMPRESSION: Findings of acute pancreatitis including enlargement of the distal pancreas remain. Overall, the degree of peripancreatic inflammatory change is decreased from 10/23/2017. Interval resolution of adjacent colonic wall thickening, likely secondary. Sequelae of chronic pancreatitis. 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 Pseudocyst formation along the anterior margin of the spleen and gastric greater curvature decreased in size. D/ / Hal Lynn MD / Hal Lynn MD Interpreting Provider: Hal Lynn MD - EKG Data EKG attestation: Yes I reviewed and interpreted this EKG. EKG results narrative: Heart rate 82 bpm. Normal sinus rhythm. No ST elevation or ST depression noted. No acute changes noted.
--- NOTE | 2017-11-23 12:53 | Emergency Department Note ---
Disposition Clinical Impression: Abdominal pain Qualifiers: Abdominal location: unspecified location Qualified Code(s): R10.9 - Unspecified abdominal pain Disposition: Still a Patient Referrals: Josiah Jimenez Jr, MD [Primary Care Provider] - Forms: ED Satisfaction Letter, Work/School Release Time of Disposition: 12:55 General Adult HPI - General Chief complaint: ED Abdominal Pain Stated complaint: abd pain Time Seen by Provider: 11/23/17 11:29 Source: patient Mode of arrival: ambulatory Limitations: no limitations - History of Present Illness Pain Scale: 8 - Related Data Home Medications Medication Instructions Recorded Confirmed Ascorbic Acid [Vitamin C] 1,000 mg PO DAILY 07/04/16 11/23/17 Omeprazole 20 mg PO TID 07/04/16 11/23/17 Vitamin A 10,000 unit PO DAILY 07/04/16 11/23/17 Vitamin B Complex 1 cap PO DAILY 07/04/16 11/23/17 Oxycodone HCl/Acetaminophen 1 tab PO Q4-6H PRN 10/23/17 11/23/17 [Percocet 5-325 mg Tablet] Previous Rx's Medication Instructions Recorded Sucralfate [Carafate] 1 gm PO QIDAC #120 tablet 07/04/16 Allergies Allergy/AdvReac Type Severity Reaction Status Date / Time No Known Allergies Allergy Verified 10/23/17 06:25 Constitutional: Reports: weakness. Denies: fever, chills ENT ED: Denies: congestion Cardiovascular: Denies: chest pain Respiratory: Denies: dyspnea Gastrointestinal: Reports: abdominal pain, nausea. Denies: vomiting, diarrhea, constipation, hematemesis, melena, hematochezia Genitourinary: Denies: urgency, dysuria Musculoskeletal: Denies: back pain, neck pain, arthralgia, myalgia Integumentary: Denies: rash Neurological: Reports: weakness. Denies: headache, numbness, paresthesias, confusion Past Medical History - Past Medical History Medical history: Reports: arthritis, cirrhosis, GERD, liver disease, osteoporosis, other Surgical history: Reports: other Psychiatric history: Reports: no psych history - Social History Smoking Status: Current every day smoker Smokeless Tobacco Status: No Alcohol use: Reports: none Drug use: Reports: none Physical Exam - General Limitations: no limitations General appearance: alert, in no apparent distress Course Vital Signs Temperature 98.5 F 11/23/17 11:31 Pulse Rate 90 11/23/17 11:31 Respiratory Rate 18 11/23/17 11:31 Blood Pressure 139/89 11/23/17 11:31 O2 Sat by Pulse Oximetry 98 11/23/17 11:31 Temperature 98.5 F 11/23/17 11:39 Pulse Rate 83 11/23/17 12:31 Respiratory Rate 15 11/23/17 12:31 Blood Pressure 132/98 11/23/17 12:31 O2 Sat by Pulse Oximetry 98 11/23/17 12:31 Oxygen Delivery Oxygen Delivery Room Air Attestation Statement - Attestation Attestation: I examined this patient and my medical decision-making was reviewed with the Resident Physician. I agree with the documented findings, disposition and treatment plan as described except to the extent set forth below. 42 year old male prsents to the ED with complaitns of pancretitis. He has a long standing history of pancreatitis and states that he most rencelty had an admission for 4 days due to it. He no longer drinks alcohol and still has his galbldder. [place] states he has no tbeen able to eat secondary to pain for the past 24 hours. WE will do ABCT and abdoinal labs for evaluation. Darline admit for pain control.
[2017-11-23 13:23] LABS: Alanine Aminotransferase 33 Units/L (7-52); Albumin 3.6 g/dL (3.5-5.7); Albumin/Globulin Ratio 0.9 (1.1-2.2); Alkaline Phosphatase 383 Units/L (34-104); Aspartate Amino Transferase 48 Units/L (13-39); BUN/Creatinine Ratio 5 (6-26); Bilirubin,Total 0.8 mg/dL (0.3-1.0); Blood Urea Nitrogen 3 mg/dL (6-20); Calcium 8.9 mg/dL (8.6-10.3); Carbon Dioxide 24 mEq/L (23-29); Chloride 106 mEq/L (98-107); Globulin 3.8 g/dL (2.4-3.5); Glucose 131 mg/dL (70-105); Lipase 23 Units/L (11-82); Osmolality,Calculated 282 (280-300); Sodium 137 mEq/L (136-145); Total Protein 7.4 g/dL (6.4-8.9); Troponin I < 0.03 ng/mL (< 0.04); eGFR For African Americans > 60 (> 60); eGFR For Non-African Americans > 60 (> 60)
[2017-11-23 13:50] LABS: Basophils # 0.1 K/mcL (0.0-0.2); Basophils % 0.7 %; Eosinophils # 0.2 K/mcL (0.0-0.6); Eosinophils % 2.1 %; Hematocrit 49.5 % (37.5-50.1); Hemoglobin 17.1 g/dL (12.9-16.9); Immature Granulocytes % 0.5 % (0-4); Lymphocytes # 1.6 K/mcL (0.6-4.6); Lymphocytes % 15.4 %; Mean Corpuscular HGB Conc 34.5 g/dL (31.6-35.5); Mean Corpuscular Hemoglobin 32.8 pg (28.0-33.3); Mean Corpuscular Volume 94.8 fL (83.0-100.0); Mean Platelet Volume 9.7 fL (9.4-12.4); Monocytes # 0.7 K/mcL (0.0-1.3); Monocytes % 6.7 %; Neutrophils # 7.6 K/mcL (1.6-8.9); Nucleated Red Blood Cells 0.2 /100 WBC (0); Platelet Count 219 K/mcL (140-400); Red Blood Count 5.22 M/mcL (4.19-5.50); Red Cell Distribution Width 13.5 % (11.5-14.5); Segmented Neutrophils % 74.6 %
[2017-11-23] MEDS ORDERED: Ondansetron 4 MG/2 ML VIAL IVP PRN (16:49)
[2017-11-23] MEDS ORDERED: Naloxone 0.4 MG/ML INJ IVP PRN (16:49)
[2017-11-23] MEDS ORDERED: *HR* Promethazine 25 MG/ML VIAL IVP PRN (16:55)
--- NOTE | 2017-11-23 16:58 | Internal Med History&Physical ---
Date of Encounter: 11/23/17 Time of Encounter: 16:56 Assessment and Plan (1) Tobacco abuse Current visit: Yes Status: Acute I strongly encouraged smoking cessation and provided counseling. He is noncommittal about quitting smoking. (2) Acute on chronic pancreatitis Current visit: Yes Status: Acute Lipase is normal however CT of the abdomen reveals findings consistent with acute pancreatitis with pseudocyst, some findings improved from 1 month ago. Clinically patient has pain typical for pancreatitis which helps establish the diagnosis in the presence of positive imaging findings. Per medical record review he has a history of pancreatic stent placement and removal 1 year ago at [facility]. Plan: Will order MRCP to evaluate for any pancreatic duct stenosis which could explain his recurrent bouts of pancreatitis. We will admit the patient for treatment of acute pancreatitis. Nothing by mouth. IV fluids with lactated Ringer's. Pain control with IV fentanyl. IV Protonix. GI consult due to recurrent acute pancreatitis. He is at high risk for morbidity, mortality and complications due to treatment with frequent doses of IV opiates for pain. (3) DVT prophylaxis Current visit: No Status: Acute Subcutaneous Lovenox. (4) Intractable abdominal pain Current visit: No Status: Acute IV fentanyl. (5) Cirrhosis Current visit: No Status: Chronic Appears compensated. Outpatient follow-up with GI. Qualifiers: Hepatic cirrhosis type: alcoholic cirrhosis Ascites presence: without ascites Qualified Code(s): K70.30 - Alcoholic cirrhosis of liver without ascites Internal Medicine - H&P: HPI Chief complaint: Abdominal pain Admitted From: Emergency Dept Plans for Post Hospital Care: Home History of present illness: Mr. Carlisle is a 42 year old male with past medical history significant for liver cirrhosis and chronic pancreatitis who was admitted 1 month ago for one episode of acute pancreatitis and presents to the hospital for intractable abdominal pain. He reports that he has chronic abdominal pains related to his pancreatitis that is well controlled with his oral oxycodone in ranges between 3 and 4/10. He was in his usual state of health until this morning when at 6 AM he had abrupt onset of severe aching mid abdominal pain associated with nausea and vomiting. Pain was not relieved with Percocet and therefore he presented to the hospital. He received multiple doses of IV fentanyl in the emergency department which provided him some temporary relief. CT of the abdomen and pelvis reveals findings consistent with acute pancreatitis. He was referred for admission. A 10 point review of systems was negative except as stated above. Family history negative for pancreatitis and pancreatic cancer in both parents. Social history: He has a history of heavy drinking. He quit drinking completely 6 years ago. He smokes 10 cigarettes a day. Denies illicit drug use. Past Med Surg Social Fam HX - Past Medical History Medical history: arthritis, cirrhosis, GERD, liver disease, osteoporosis, other Psychiatric history: no psych history - Past Surgical History Surgical History: other - Social History Smoking Status: Current every day smoker Smokeless Tobacco Status: No Alcohol use: none Drug use: none - Family History Father Family Member Ethnicity: Non- Living Status: Hx Family Cancer: Yes (colon) Mother Living Status: Still Living Internal Medicine - H&P: Meds Ascorbic Acid [Vitamin C] 1,000 mg PO DAILY 07/04/16 [History] Omeprazole 20 mg PO TID 07/04/16 [History] Sucralfate [Carafate] 1 gm PO QIDAC #120 tablet 07/04/16 [Rx] Vitamin A 10,000 unit PO DAILY 07/04/16 [History] Vitamin B Complex 1 cap PO DAILY 07/04/16 [History] Oxycodone HCl/Acetaminophen [Percocet 5-325 mg Tablet] 1 tab PO Q4-6H PRN [History] 3 Allergy/AdvReac Type Severity Reaction Status Date / Time No Known Allergies Allergy Verified 10/23/17 06:25 All Systems PM: A 10-system review of systems was performed and is negative for pertinent findings except as documented above in the HPI. - Constitutional Vitals: Temp Pulse Resp BP Pulse Ox 98.5 F 89 15 132/89 98 11/23/17 11:39 11/23/17 16:30 11/23/17 16:30 11/23/17 16:30 11/23/17 16:30 General appearance: Present: A&O X 3 - Eye Eye exam: Present: PERRL, conjuntiva pink, sclera anicteric Pupils: Present: PERRL - Respiratory Respiratory exam: Present: CTAB. Absent: accessory muscle use, rales, rhonchi, wheezes - Cardiovascular Cardiovascular exam: Present: RRR, +S1, +S2. Absent: diastolic murmur, gallop, rubs, systolic murmur - GI/Abdominal GI/Abdominal exam: Present: normal bowel sounds, soft, tenderness (Abdomen exquisitely tender with voluntary guarding, present bowel sounds), no peritoneal signs. Absent: distended - Extremities Exam Extremities exam: Present: warm, radial pulses palpable and symmetrical. Absent : calf tenderness, cyanotic, pedal edema - Neurological Exam Neurological exam: Present: CN II-XII intact, oriented X3, no focal deficits. Absent: facial droop, speech deficit - Skin Skin exam: Present: dry, intact Internal Med - H&P Results - Labs CBC & Chem 7: 11/23/17 13:29 11/23/17 12:41 - EKG Data -: EKG Interpreted by Myself EKG shows normal: sinus rhythm, intervals, QRS complexes, ST-T waves Rate: normal (82 bpm)
[2017-11-23] MEDS ORDERED: *HR* HYDROmorphone (PF) 1 MG/ML SYRINGE IVP ONE (17:26)
[2017-11-23] MEDS: *HR* FentaNYL (PF) 100 MCG/2 ML VIAL IVP PRN ×3 (19:37→22:48)
[2017-11-23] MEDS: Ringers Solution, Lactated 1,000 ML IVC SCH (19:49)
[2017-11-24] MEDS: *HR* FentaNYL (PF) 100 MCG/2 ML VIAL IVP PRN ×8 (00:21→14:18)
[2017-11-24] MEDS: Ringers Solution, Lactated 1,000 ML IVC SCH (04:24)
[2017-11-24] MEDS: *HR* Enoxaparin 40 MG/0.4 ML SYRINGE SQ SCH (05:47)
[2017-11-24 07:24] LABS: Basophils # 0.1 K/mcL (0.0-0.2); Basophils % 0.3 %; Eosinophils # 0.1 K/mcL (0.0-0.6); Eosinophils % 0.4 %; Hematocrit 47.2 % (37.5-50.1); Immature Granulocytes % 0.4 % (0-4); Lymphocytes % 6.1 %; Mean Corpuscular HGB Conc 33.9 g/dL (31.6-35.5); Mean Corpuscular Hemoglobin 32.7 pg (28.0-33.3); Mean Corpuscular Volume 96.3 fL (83.0-100.0); Monocytes # 0.8 K/mcL (0.0-1.3); Monocytes % 5.2 %; Platelet Count 202 K/mcL (140-400); Red Cell Distribution Width 13.5 % (11.5-14.5); Segmented Neutrophils % 87.6 %
[2017-11-24 07:25] LABS: Neutrophils # 13.8 K/mcL (1.6-8.9)
[2017-11-24 07:40] LABS: BUN/Creatinine Ratio 6 (6-26); Blood Urea Nitrogen 3 mg/dL (6-20); Calcium 8.5 mg/dL (8.6-10.3); Carbon Dioxide 24 mEq/L (23-29); Chloride 103 mEq/L (98-107); Glucose 93 mg/dL (70-105); Magnesium 1.6 mg/dL (1.6-2.6); Osmolality,Calculated 278 (280-300); Potassium 3.8 mEq/L (3.5-5.1); Sodium 136 mEq/L (136-145); eGFR For African Americans > 60 (> 60); eGFR For Non-African Americans > 60 (> 60)
--- NOTE | 2017-11-24 09:22 | Gastroenterology Consult Note ---
<Stephanie Schneider - Last Filed: 11/24/17 11:46> Date of Encounter: 11/24/17 Time of Encounter: 09:21 - Assessment and plan (1) Acute on chronic pancreatitis Status: Acute Assessment and plan: 42 yo male with hep c, cirrhosis, and chronic pancreatitis presents with acute flare of pancreatitis. -Mild pancreatic ductal dilation on MRCP. -Patient's states he is asymptomatic. -Will advance to [facility], see how he tolerates. (2) Intractable abdominal pain Status: Acute Assessment and plan: management per primary team. (3) Cirrhosis Status: Chronic Assessment and plan: Patient states he is established with GI at [facility]. Qualifiers: Hepatic cirrhosis type: alcoholic cirrhosis Ascites presence: without ascites Qualified Code(s): K70.30 - Alcoholic cirrhosis of liver without ascites - Time Spent With Patient Total time spent is greater than 50% in coordination of care (as documented) at patient's floor/unit and/or counseling patient: GI History of Present Illness - Data of Consult Patient: known to practice within the last 3 years Consult date: 11/24/17 Requesting Physician: Sheila Honeycutt MD - Consult Narrative Reason for consult: recurrent acute on chronic pancreatitis History of present illness: Mr. Carlisle is a 42 year old male with past medical history hepatitis C, liver cirrhosis, and chronic pancreatitis. Patient presented to [facility] on 11/23/2017 with complaints of epigastric abdominal pain, nausea, and vomiting. Patient was recently admitted 1 month ago for acute pancreatitis and intractable abdominal pain. Patient is on chronic opiate therapy for his chronic pancreatitis. However, he states that yesterday his pain intensified such that he felt he needed to come to the emergency department. CT of the abdomen and pelvis demonstrated acute pancreatitis, however, there was interval improvement from imaging performed on October 23. Pseudocysts located on the spleen and greater curvature of the stomach had decreased in size. Patient was admitted to the hospitalist for IV pain control , fluids, and further workup. MRI of the abdomen demonstrated acute pancreatitis, calcifications indicative of chronic pancreatitis, a splenic cystic lesion, and MRCP evaluation non-suggestive of biliary ductal involvement , except for mild pancreatic ductal dilation. This morning, patient is resting comfortably. He states he is back to his baseline. He denies any abdominal pain, nausea, or vomiting. He denies chest pain, shortness of breath, palpitations, diaphoresis, dizziness, lightheadedness , fever, chills, or night sweats. He states he follows with a turning sander tender at [facility]. He states he receives most of his medical care in [place]. Past Med Surg Social Fam HX - Past Medical History Attestation: Yes The following information was validated with the patient. Source: patient, old records reviewed Medical history: arthritis, cirrhosis, GERD, liver disease (Hepatitis C), osteoporosis, other Psychiatric history: other (Substance abuse, heavy alcohol consumption, and IV drug use.) - Past Surgical History Surgical History: cholecystectomy, other - Social History Smoking Status: Current every day smoker Packs per day: 0.5 Smokeless Tobacco Status: No Alcohol use: none Drug use: none - Family History Father Family Member Ethnicity: Non- Living Status: Hx Family Cancer: Yes (colon) Mother Living Status: Still Living - Gastrointestinal NSAID use: none Anticoagulation Use: none Gastrointestinal: Present: abdominal pain, nausea, vomiting. Absent: coffee ground emesis, diarrhea, hematemesis, hematochezia, melena - Constitutional Constitutional: other (Patient looks older than stated age. He is thin.), no anorexia, no fatigue, no weight gain, no weight loss - Cardiovascular Cardiovascular ROS: Absent: chest pain, irregular heart rhythm, palpitations - Respiratory Respiratory IM: Absent: cough, dyspnea, hemoptysis, wheezing - Genitourinary Genitourinary: Absent: change in color, Urinary frequency - Neurological ROS Neurological GI: Absent: confusion, dizziness, headache(s), weakness - Hematologic/Lymphatic Hematologic/Lymphatic pediatric: Absent: easy bleeding - Integumentary Integumentary GI: Absent: jaundice, pruritis, rash - Constitutional Vitals: Temp Pulse Resp BP Pulse Ox 98.8 F 74 16 118/74 95 11/24/17 07:00 11/24/17 07:00 11/24/17 07:00 11/24/17 07:00 11/24/17 07:00 General appearance: Present: cooperative, A&O X 3, no acute distress Exam: Patient appears older than stated age. He has multiple tattoos - Head Head exam: Present: atraumatic, normocephalic - Eye Eye exam: Present: normal appearance, sclera anicteric - Neck Neck exam general surgery: Present: normal inspection, trachea midline - Respiratory Respiratory exam: Present: CTAB - Cardiovascular Cardiovascular exam: Present: RRR, +S1, +S2 - GI/Abdominal GI/Abdominal exam: Present: normal bowel sounds, soft, tenderness (Mild tenderness over the bilateral lower quadrants.), no peritoneal signs - Expanded GI/Abdominal Exam GI/Abdominal exam expanded: Absent: ascites - Extremities Exam Extremities exam: Present: warm, radial pulses palpable and symmetrical. Absent : pedal edema - Neurological Exam Neurological exam: Present: no focal deficits - Skin Skin exam: Present: dry, intact, warm Additional comments: Multiple tattoos appreciated. Results - Labs CBC & Chem 7: 11/24/17 06:33 11/24/17 06:33 Labs: Last Result Calcium 8.5 mg/dL (8.6-10.3) L 11/24/17 06:33 Troponin I < 0.03 ng/mL (< 0.04) 11/23/17 12:41 Entire Visit Hgb 16.0 g/dL (12.9-16.9) 11/24/17 06:33 Hct 47.2 % (37.5-50.1) 11/24/17 06:33 Total Bilirubin 0.8 mg/dL (0.3-1.0) 11/23/17 12:41 AST 48 Units/L (13-39) H 11/23/17 12:41 ALT 33 Units/L (7-52) 11/23/17 12:41 Lipase 23 Units/L (11-82) 11/23/17 12:41 Consult Discharge Plan - Plan Instructions: Pancreatitis (GEN), Cirrhosis (GEN), Acute Nausea and Vomiting ( GEN) Referrals: Edilia Thomas POWDERER [Advanced Practice Nurse] - 12/01/17 10:00 am <Tyrone Escalante - Last Filed: 11/30/17 12:57> Date of Encounter: 11/24/17 - Time Spent With Patient Total time spent is greater than 50% in coordination of care (as documented) at patient's floor/unit and/or counseling patient: GI History of Present Illness - Data of Consult Requesting Physician: Sheila Honeycutt MD - Consult Narrative History of present illness: Mr. Carlisle is a 42 year old male - Constitutional Vitals: Temp Pulse Resp BP Pulse Ox 98.0 F 72 15 99/64 98 11/25/17 10:47 11/25/17 10:47 11/25/17 10:47 11/25/17 10:47 11/25/17 10:47 Results - Labs CBC & Chem 7: 11/25/17 07:46 11/25/17 07:46 Labs: Last Result Calcium 8.5 mg/dL (8.6-10.3) L 11/25/17 07:46 Troponin I < 0.03 ng/mL (< 0.04) 11/23/17 12:41 Entire Visit Hgb 16.9 g/dL (12.9-16.9) 11/25/17 07:46 Hct 49.8 % (37.5-50.1) 11/25/17 07:46 Total Bilirubin 0.8 mg/dL (0.3-1.0) 11/23/17 12:41 AST 48 Units/L (13-39) H 11/23/17 12:41 ALT 33 Units/L (7-52) 11/23/17 12:41 Lipase 23 Units/L (11-82) 11/23/17 12:41 - Attending Attestation Acute pancreatitis in a background of chronic pancreatitis. Manage conservatively. I examined this patient and my medical decision-making was reviewed with the Resident Physician. I agree with the documented findings, disposition and treatment plan as described except to the extent set forth below.
--- NOTE | 2017-11-24 09:23 | Electrocardiograph Report ---
[facility] Test Date: 2017-11-23 Pat Name: Yeimi Carlisle Department: 103 Room: 3A56 Gender: M Cna Ltc: : 1975 Requested By: Maurizio Becker Order Number: [id number] Kajal MD: Gunnar Moreno MD Measurements Intervals Brutus Rate: 82 P: 69 SC: 172 QRS: 4 QRSD: 81 T: 62 QT: 379 QTc: 418 Interpretive Statements SINUS RHYTHM WARNING: DATA QUALITY MAY AFFECT INTERPRETATION Electronically Signed On 11-24-2017 9:21:28 EDT by Gunnar Moreno MD
[2017-11-24] MEDS: OXYCODONE Oral CONC 10 MG/0.5 ML ORAL.SYG SL PRN ×2 (16:40→21:23)
--- NOTE | 2017-11-24 18:16 | Internal Med Progress Note ---
Date of Encounter: 11/24/17 Time of Encounter: 16:15 - Assessment and plan (1) Acute on chronic pancreatitis Current Visit: Yes Status: Acute Assessment and plan: Lipase is normal however CT of the abdomen reveals findings consistent with acute pancreatitis with pseudocyst, some findings improved from 1 month ago. Clinically patient has pain typical for pancreatitis which helps establish the diagnosis in the presence of positive imaging findings. Per medical record review he has a history of pancreatic stent placement and removal 1 year ago at [facility]. - MRCP showed acute pancreatitis on chronic pancreatitis, did not appreciate any abnormalitites of the bile ducts outside of mild pancreatic ductal dilation. - Gastroenterology consulted, recommendations appreciated; diet to be advanced - Pain control: will discontinue IV Fentanyl, patient is using every hour. Will start oxycodone sublingual 10 mg Q6H prn. (2) Cirrhosis Current Visit: No Status: Chronic Assessment and plan: Appears compensated. Outpatient follow-up with GI. Qualifiers: Hepatic cirrhosis type: alcoholic cirrhosis Ascites presence: without ascites Qualified Code(s): K70.30 - Alcoholic cirrhosis of liver without ascites (3) DVT prophylaxis Current Visit: No Status: Acute - Subjective Interval history: No complaints, no acute events. - Constitutional Vitals: Temp Pulse Resp BP Pulse Ox 98.1 F 63 16 109/76 98 11/24/17 15:00 11/24/17 15:00 11/24/17 15:00 11/24/17 15:00 11/24/17 15:00 General appearance: Present: A&O X 3 Internal Medicine: Result - Labs CBC & Chem 7: 11/24/17 06:33 11/24/17 06:33 Labs: Short CBC 11/24/17 Range/Units 06:33 WBC 15.8 H D (4.3-11.1) K/mcL Hgb 16.0 (12.9-16.9) g/dL Hct 47.2 (37.5-50.1) % Plt Count 202 (140-400) K/mcL Neutrophils # 13.8 H (1.6-8.9) K/mcL BMP 11/24/17 06:33 Sodium 136 Potassium 3.8 Chloride 103 Carbon Dioxide 24 BUN 3 L Creatinine 0.53 L Glucose 93 Calcium 8.5 L Consult Discharge Plan - Plan Referrals: Josiah Jimenez Jr, MD [Primary Care Provider] -
[2017-11-25] MEDS: OXYCODONE Oral CONC 10 MG/0.5 ML ORAL.SYG SL PRN ×3 (01:43→09:53)
[2017-11-25] MEDS: *HR* Enoxaparin 40 MG/0.4 ML SYRINGE SQ SCH (05:50)
[2017-11-25 08:06] LABS: Basophils # 0.1 K/mcL (0.0-0.2); Basophils % 0.5 %; Eosinophils # 0.3 K/mcL (0.0-0.6); Eosinophils % 2.5 %; Hematocrit 49.8 % (37.5-50.1); Hemoglobin 16.9 g/dL (12.9-16.9); Immature Granulocytes % 0.3 % (0-4); Lymphocytes # 2.4 K/mcL (0.6-4.6); Lymphocytes % 23.6 %; Mean Corpuscular HGB Conc 33.9 g/dL (31.6-35.5); Mean Corpuscular Hemoglobin 32.6 pg (28.0-33.3); Mean Platelet Volume 9.8 fL (9.4-12.4); Monocytes # 0.7 K/mcL (0.0-1.3); Monocytes % 7.2 %; Neutrophils # 6.7 K/mcL (1.6-8.9); Platelet Count 178 K/mcL (140-400); Red Blood Count 5.19 M/mcL (4.19-5.50); Red Cell Distribution Width 13.2 % (11.5-14.5); Segmented Neutrophils % 65.9 %
[2017-11-25 08:23] LABS: BUN/Creatinine Ratio 10 (6-26); Blood Urea Nitrogen 6 mg/dL (6-20); Calcium 8.5 mg/dL (8.6-10.3); Carbon Dioxide 27 mEq/L (23-29); Chloride 100 mEq/L (98-107); Glucose 267 mg/dL (70-105); Osmolality,Calculated 283 (280-300); Potassium 3.5 mEq/L (3.5-5.1); Sodium 133 mEq/L (136-145); eGFR For African Americans > 60 (> 60); eGFR For Non-African Americans > 60 (> 60)
[2017-11-25 10:48] VITALS: BP 99/64
--- NOTE | 2017-11-25 12:02 | Discharge Summary ---
- NOTES TO OUTPATIENT PROVIDER Notes to Outpatient Provider: - Follow-up with [facility] ([facility]) at next available appointment., patient agrees. Orders not resulted at time of discharge: Pending orders 11/26/17 04:00 BMP [Basic Metabolic Panel] AM 0400 Complete Blood Count [HEME] AM 0400 Date of Encounter: 11/25/17 Time of Encounter: 11:58 - Discharge Diagnosis (1) Acute on chronic pancreatitis Priority: Primary Status: Acute (2) Cirrhosis Priority: Secondary Status: Chronic Qualifiers: Hepatic cirrhosis type: alcoholic cirrhosis Ascites presence: without ascites Qualified Code(s): K70.30 - Alcoholic cirrhosis of liver without ascites (3) DVT prophylaxis Priority: Secondary Status: Acute Hospital course: Mr. Carlisle is a 42 year old male with past medical history significant for liver cirrhosis and chronic pancreatitis (follows GI at [facility]. Had sent placed and removed one year ago) who was admitted 1 month ago for one episode of acute pancreatitis and presents to the hospital for intractable abdominal pain. He reports that he has chronic abdominal pains related to his pancreatitis that is well controlled with his oral oxycodone in ranges between 3 and 4/10. He was in his usual state of health until morning of admission when at 6 AM he had abrupt onset of severe aching mid abdominal pain associated with nausea and vomiting. Pain was not relieved with Percocet and therefore he presented to the hospital. He received multiple doses of IV fentanyl in the emergency department which provided him some temporary relief. CT of the abdomen and pelvis reveals findings consistent with acute pancreatitis and pseudocyst - improved from one month ago, lipase was within normal limits. He was admitted for further treatment. Patient was started NPO, given IV fluids, and given pain control with IV fentanyl initially. MRCP was done and showed acute pancreatitis with calcifications c/w chronic pancreatitis. There was no obvious abnormality of bile ducts but mild pancreatic ductal dilation. GI was consulted due to recurrence. His diet was advanced and he tolerated without issue. Patient was discharged in stable condition. Agrees to follow-up with next available GI appointment at [facility]. - Time Spent with Patient Total time spent providing and/or coordinating discharge services: - Discharge Medications Home Medications: Ascorbic Acid [Vitamin C] 1,000 mg PO DAILY 07/04/16 [History] Omeprazole 20 mg PO TID 07/04/16 [History] Sucralfate [Carafate] 1 gm PO QIDAC #120 tablet 07/04/16 [Rx] Vitamin A 10,000 unit PO DAILY 07/04/16 [History] Vitamin B Complex 1 cap PO DAILY 07/04/16 [History] Oxycodone HCl/Acetaminophen [Percocet 5-325 mg Tablet] 1 tab PO Q4-6H PRN [History] Allergies/Adverse Reactions: 3 Allergy/AdvReac Type Severity Reaction Status Date / Time No Known Allergies Allergy Verified 10/23/17 06:25 Date of admission: 11/23/17 16:49 Primary care physician: Josiah Jimenez Jr, MD Discharging clinician: Maxim Webb - Constitutional Vitals: Temp Pulse Resp BP Pulse Ox 98.0 F 72 15 99/64 98 11/25/17 10:47 11/25/17 10:47 11/25/17 10:47 11/25/17 10:47 11/25/17 10:47 General appearance: Present: A&O X 3 - Head Head exam: Present: atraumatic, normocephalic - Eye Eye exam: Present: PERRL, conjuntiva pink, sclera anicteric Pupils: Present: PERRL - Neck Neck exam general surgery: Present: supple, trachea midline. Absent: lymphadenopathy - Respiratory Respiratory exam: Present: CTAB. Absent: accessory muscle use, rales, rhonchi, wheezes - Cardiovascular Cardiovascular exam: Present: RRR, +S1, +S2. Absent: diastolic murmur, gallop, rubs, systolic murmur - GI/Abdominal GI/Abdominal exam: Present: normal bowel sounds, soft, no peritoneal signs. Absent: distended, tenderness - Extremities Exam Extremities exam: Present: warm, radial pulses palpable and symmetrical. Absent : calf tenderness, cyanotic, pedal edema - Neurological Exam Neurological exam: Present: CN II-XII intact, oriented X3, no focal deficits. Absent: pronater drift, facial droop, speech deficit - Skin Skin exam: Present: dry, intact - Patient Status Disposition: Home, Self-Care Condition: Undetermined Functional capacity at discharge: independent ambulation Overall status at discharge: patient is back to baseline - Discharge Instructions Follow Up With: Josiah Jimenez Jr, MD [Primary Care Provider] - - Diet and Activity Activity: increase activity as tolerated Diet: low fat, low cholesterol
== END 2017-11-25 13:30 | disposition home or self-care (01) | DRG 282 ==
LOC: 3ANU 11:26 → EMEROO 11:26 → OBSVTOIN 16:35 → INTOOBSV 16:35 → 3ANU 18:33
PROVIDERS: ADMIT Internal Medicine; ATTEND Internal Medicine

== ENCOUNTER 2020-03-28 15:51 | Observation (INO) ==
[2020-03-28] MEDS ORDERED: Isovue-370 500 ML BOTTLE IVP ONE (16:10)
[2020-03-28] MEDS ORDERED: Morphine Sulfate 2 MG/ML SYRINGE IVP ONE ×2 (16:23→18:15)
[2020-03-28] MEDS ORDERED: 0.9 % Sodium Chloride 1,000 ML IVC ONE (16:24)
[2020-03-28] MEDS ORDERED: Ondansetron 4 MG/2 ML VIAL IVP ONE (16:31)
[2020-03-28 16:59] LABS: Hemoglobin 12.7 g/dL (12.9-16.9)
[2020-03-28 17:01] LABS: Hematocrit 36.9 % (37.5-50.1); Mean Corpuscular HGB Conc 34.4 g/dL (31.6-35.5); Mean Corpuscular Hemoglobin 35.2 pg (28.0-33.3); Mean Corpuscular Volume 102.2 fL (83.0-100.0); Mean Platelet Volume 11.8 fL (9.4-12.4); Red Blood Count 3.61 M/mcL (4.19-5.50); Red Cell Distribution Width 12.7 % (11.5-14.5); White Blood Count 5.7 K/mcL (4.3-11.1)
[2020-03-28 17:03] LABS: Alanine Aminotransferase 30 Units/L (7-52); Albumin 2.7 g/dL (3.5-5.7); Albumin/Globulin Ratio 0.7 (1.1-2.2); Alkaline Phosphatase 220 Units/L (34-104); Aspartate Amino Transferase 94 Units/L (13-39); BUN/Creatinine Ratio 6 (6-26); Bilirubin,Direct 0.8 mg/dL (0.0-0.2); Bilirubin,Indirect 1.3 mg/dL (0.0-1.0); Bilirubin,Total 2.1 mg/dL (0.3-1.0); Blood Urea Nitrogen 3 mg/dL (6-20); Calcium 8.3 mg/dL (8.6-10.3); Carbon Dioxide 25 mEq/L (23-29); Chloride 102 mEq/L (98-107); Glucose 99 mg/dL (70-105); Lipase 18 Units/L (11-82); Osmolality,Calculated 277 (280-300); Potassium 3.8 mEq/L (3.5-5.1); Sodium 135 mEq/L (136-145); Total Protein 6.7 g/dL (6.4-8.9); eGFR For African Americans > 60 (> 60); eGFR For Non-African Americans > 60 (> 60)
[2020-03-28 17:16] LABS: INR 1.4; Prothrombin Time 15.4 Seconds (9.4-12.1)
[2020-03-28 17:23] LABS: Bilirubin,Urine Negative (Negative); Blood,Urine Trace (Negative); Clarity,Urine Clear (Clear); Color,Urine Yellow (Yellow); Glucose,Urine (UA) Normal (Normal); Ketones,Urine Negative (Negative); Leukocyte Esterase,Urine Negative (Negative); Mucus,Urine Few per lpf (None-Few); Nitrite,Urine Negative (Negative); PH,Urine 7.5 pH Units (5.0-8.0); Protein,Urine Negative (Neg-Trace); Specific Gravity,Urine 1.017 (1.010-1.025); Squamous Epithelial Cell,Urine Few per hpf (None-Few); Urobilinogen,Urine Normal (Normal); WBC,Urine 0-3 per hpf (0-3)
[2020-03-28] MEDS ORDERED: Naloxone 0.4 MG/ML INJ IVP PRN (20:52)
[2020-03-28] MEDS ORDERED: *HR* Promethazine 25 MG/ML VIAL IVP PRN (20:52)
[2020-03-28] MEDS: 0.9 % Sodium Chloride 1,000 ML IVC SCH (21:21)
[2020-03-28] MEDS: Morphine Sulfate 2 MG/ML SYRINGE IVP PRN (22:25)
[2020-03-29 02:01] LABS: Red Cell Distribution Width 13.1 % (11.5-14.5)
[2020-03-29 02:03] LABS: Basophils # 0.1 K/mcL (0.0-0.2); Basophils % 0.7 %; Eosinophils # 0.1 K/mcL (0.0-0.6); Eosinophils % 1.5 %; Hematocrit 37.1 % (37.5-50.1); Hemoglobin 12.3 g/dL (12.9-16.9); Immature Granulocytes % 0.3 % (0-4); Immature Platelets 7.7 % (1.1-6.1); Lymphocytes # 1.5 K/mcL (0.6-4.6); Lymphocytes % 20.4 %; Mean Corpuscular HGB Conc 33.2 g/dL (31.6-35.5); Mean Corpuscular Hemoglobin 35.2 pg (28.0-33.3); Mean Corpuscular Volume 106.3 fL (83.0-100.0); Mean Platelet Volume 11.7 fL (9.4-12.4); Monocytes # 0.4 K/mcL (0.0-1.3); Monocytes % 5.3 %; Red Blood Count 3.49 M/mcL (4.19-5.50); Segmented Neutrophils % 71.8 %; White Blood Count 7.3 K/mcL (4.3-11.1)
[2020-03-29 02:05] LABS: INR 1.4; Prothrombin Time 16.4 Seconds (9.4-12.1)
[2020-03-29 02:15] LABS: Neutrophils # 5.2 K/mcL (1.6-8.9); Platelet Count 57 K/mcL (140-400)
[2020-03-29 02:27] LABS: Alanine Aminotransferase 27 Units/L (7-52); Albumin 2.6 g/dL (3.5-5.7); Albumin/Globulin Ratio 0.7 (1.1-2.2); Alkaline Phosphatase 206 Units/L (34-104); Aspartate Amino Transferase 84 Units/L (13-39); BUN/Creatinine Ratio 8 (6-26); Bilirubin,Total 2.9 mg/dL (0.3-1.0); Blood Urea Nitrogen 4 mg/dL (6-20); Calcium 8.1 mg/dL (8.6-10.3); Carbon Dioxide 25 mEq/L (23-29); Chloride 103 mEq/L (98-107); Chol/HDL Ratio 2.5 (0-4.9); Cholesterol 67 mg/dL (< 200); Globulin 3.9 g/dL (2.4-3.5); Glucose 78 mg/dL (70-105); HDL Cholesterol 27 mg/dL (40-59); LDL Cholesterol,Calculated 33 mg/dL (< 100); Magnesium 1.6 mg/dL (1.6-2.6); Osmolality,Calculated 276 (280-300); Phosphorous 3.5 mg/dL (2.7-4.5); Potassium 4.1 mEq/L (3.5-5.1); Sodium 135 mEq/L (136-145); Total Protein 6.5 g/dL (6.4-8.9); Triglycerides 35 mg/dL (< 150); eGFR For African Americans > 60 (> 60); eGFR For Non-African Americans > 60 (> 60)
[2020-03-29 02:35] LABS: Thyroid Stimulating Hormone 1.764 mcIU/mL (0.340-5.600)
[2020-03-29] MEDS: Morphine Sulfate 2 MG/ML SYRINGE IVP PRN ×5 (02:35→20:15)
[2020-03-29 02:50] LABS: Folate 9.1 ng/mL (3.0-16.0)
[2020-03-29] MEDS: 0.9 % Sodium Chloride 1,000 ML IVC SCH (06:16)
[2020-03-29] MEDS ORDERED: Morphine Sulfate 2 MG/ML SYRINGE IVP PRN (09:44)
[2020-03-29 10:46] LABS: Amphetamine Screen,Urine Negative ng/mL (Cutoff=1000); Barbiturate Screen,Urine Negative ng/mL (Cutoff=200); Benzodiazepines Screen,Urine Negative ng/mL (Cutoff=200); Cannabinoid Screen,Urine Negative ng/mL (Cutoff = 50); Cocaine Screen,Urine Negative ng/mL (Cutoff= 300); Opiate Screen,Urine Positive ng/mL (Cutoff=300); Phencyclidine Screen,Urine Negative ng/mL (Cutoff=25)
[2020-03-29] MEDS: Pantoprazole 40 MG VIAL IVP SCH (10:46)
[2020-03-29] MEDS ORDERED: NON-FORMULARY MEDICATION 1 EACH EACH (Lipase/Protease/Amylase [Creon Dr 24,000 Units Capsu PO SCH (12:00)
[2020-03-30] MEDS: Morphine Sulfate 2 MG/ML SYRINGE IVP PRN (00:35)
[2020-03-30] MEDS: *HR* OxyCODONE/APAP 5/325 TABLET PO PRN ×2 (03:59→12:46)
[2020-03-30] MEDS: Pantoprazole 40 MG VIAL IVP SCH (08:56)
[2020-03-30] MEDS ORDERED: Vitamin B Complex/Vit C/Vit E 1 EACH TABLET PO SCH (09:00)
[2020-03-30 11:15] VITALS: BP 92/54
[2020-03-30] MEDS ORDERED: Sucralfate 1 GM TABLET PO SCH (16:30)
== END 2020-03-30 15:54 | disposition home or self-care (01) ==
LOC: EMEROOARM 15:51 → 3BNU 15:51
PROVIDERS: ADMIT Internal Medicine; ATTEND Internal Medicine

== ENCOUNTER 2020-05-09 15:34 | Observation (INO) ==
[2020-05-09] MEDS ORDERED: *HR* HYDROmorphone (PF) 1 MG/ML SYRINGE IVP ONE ×2 (15:39→17:52)
[2020-05-09] MEDS ORDERED: 0.9 % Sodium Chloride 1,000 ML IVC ONE ×2 (15:39→18:44)
[2020-05-09] MEDS ORDERED: Ondansetron 4 MG/2 ML VIAL IVP ONE (15:39)
[2020-05-09 15:54] LABS: Basophils % 0.3 %; Eosinophils % 0.3 %; Hematocrit 27.3 % (37.5-50.1); Hemoglobin 9.5 g/dL (12.9-16.9); Immature Granulocytes % 0.5 % (0-4); Lymphocytes # 2.1 K/mcL (0.6-4.6); Lymphocytes % 17.5 %; Mean Corpuscular HGB Conc 34.8 g/dL (31.6-35.5); Mean Corpuscular Hemoglobin 37.4 pg (28.0-33.3); Mean Corpuscular Volume 107.5 fL (83.0-100.0); Mean Platelet Volume 10.9 fL (9.4-12.4); Monocytes # 0.9 K/mcL (0.0-1.3); Monocytes % 7.8 %; Red Blood Count 2.54 M/mcL (4.19-5.50); Segmented Neutrophils % 73.6 %; White Blood Count 11.9 K/mcL (4.3-11.1)
[2020-05-09 16:18] LABS: Alanine Aminotransferase 17 Units/L (7-52); Albumin 2.3 g/dL (3.5-5.7); Albumin/Globulin Ratio 0.5 (1.1-2.2); Alkaline Phosphatase 148 Units/L (34-104); Aspartate Amino Transferase 58 Units/L (13-39); BUN/Creatinine Ratio 15 (6-26); Bilirubin,Indirect 4.6 mg/dL (0.0-1.0); Bilirubin,Total 7.6 mg/dL (0.3-1.0); Blood Urea Nitrogen 9 mg/dL (6-20); Calcium 8.2 mg/dL (8.6-10.3); Carbon Dioxide 29 mEq/L (23-29); Chloride 100 mEq/L (98-107); Globulin 4.9 g/dL (2.4-3.5); Glucose 95 mg/dL (70-105); Lipase 13 Units/L (11-82); Osmolality,Calculated 276 (280-300); Potassium 3.7 mEq/L (3.5-5.1); Sodium 134 mEq/L (136-145); Total Protein 7.2 g/dL (6.4-8.9); Troponin I 0.03 ng/mL (< 0.04); eGFR For African Americans > 60 (> 60); eGFR For Non-African Americans > 60 (> 60)
[2020-05-09 16:20] LABS: Neutrophils # 8.8 K/mcL (1.6-8.9); Platelet Count 82 K/mcL (140-400)
[2020-05-09 16:21] LABS: Bacteria,Urine Few per hpf (None-Few); Bilirubin,Urine Small (Negative); Blood,Urine Small (Negative); Clarity,Urine Turbid (Clear); Color,Urine Dark-Orange (Yellow); Glucose,Urine (UA) Normal (Normal); Ketones,Urine 40 mg/dL (Negative); Leukocyte Esterase,Urine Large (Negative); Mucus,Urine Few per lpf (None-Few); Nitrite,Urine Negative (Negative); PH,Urine 8.5 pH Units (5.0-8.0); Protein,Urine 70 mg/dL (Neg-Trace); RBC,Urine 50-100 per hpf (0-3); Specific Gravity,Urine 1.028 (1.010-1.025); Squamous Epithelial Cell,Urine Few per hpf (None-Few); Urobilinogen,Urine >=8.0 mg/dL (Normal); WBC,Urine TNTC per hpf (0-3)
[2020-05-09 16:21] LABS: Platelet Estimate Decreased (Normal)
[2020-05-09 17:26] LABS: INR 1.9; Prothrombin Time 22.1 Seconds (9.4-12.1)
[2020-05-09] MEDS ORDERED: Albumin 25% 25gram/100mL 25 GM/100 ML IV.SOLN IVPB ONE (18:46)
[2020-05-09] MEDS ORDERED: cefTRIAXone 1,000 MG in Water for inj. (sterile) 10 ML IVP ONE (20:44)
[2020-05-09] MEDS ORDERED: *HR* FentaNYL (PF) 100 MCG/2 ML VIAL IVP ONE (20:51)
[2020-05-09] MEDS ORDERED: Naloxone 0.4 MG/ML INJ IVP PRN (22:46)
[2020-05-09] MEDS ORDERED: Ondansetron 4 MG/2 ML VIAL IVP PRN (22:46)
[2020-05-09] MEDS ORDERED: 0.9 % Sodium Chloride 1,000 ML IVC SCH (23:00)
[2020-05-10] MEDS: Nicotine 14 MG PATCH.TD24 TD SCH (00:15)
[2020-05-10] MEDS ORDERED: 0.9 % Sodium Chloride 500 ML IVC ONE (05:11)
[2020-05-10] MEDS ORDERED: Dextrose Gel 15 GM/37.5 ML TUBE PO PRN ×2 (05:39)
[2020-05-10] MEDS ORDERED: D5% in Water 1,000 ML IVC PRN (05:39)
[2020-05-10] MEDS ORDERED: *HR* Dextrose 50 % in Water (Vial) 50 ML VIAL IVP PRN (05:39)
[2020-05-10 06:14] LABS: Mean Platelet Volume 10.7 fL (9.4-12.4)
[2020-05-10 06:16] LABS: Basophils # 0.1 K/mcL (0.0-0.2); Basophils % 0.5 %; Eosinophils # 0.1 K/mcL (0.0-0.6); Eosinophils % 1.1 %; Hematocrit 24.1 % (37.5-50.1); Hemoglobin 8.2 g/dL (12.9-16.9); Immature Granulocytes % 0.5 % (0-4); Immature Platelets 3.3 % (1.1-6.1); Lymphocytes # 2.4 K/mcL (0.6-4.6); Lymphocytes % 21.9 %; Mean Corpuscular Hemoglobin 37.8 pg (28.0-33.3); Mean Corpuscular Volume 111.1 fL (83.0-100.0); Monocytes # 0.8 K/mcL (0.0-1.3); Monocytes % 7.1 %; Neutrophils # 7.5 K/mcL (1.6-8.9); Red Blood Count 2.17 M/mcL (4.19-5.50); Red Cell Distribution Width 17.3 % (11.5-14.5); Segmented Neutrophils % 68.9 %; White Blood Count 10.9 K/mcL (4.3-11.1)
[2020-05-10 06:17] LABS: INR 2.4; Prothrombin Time 27.2 Seconds (9.4-12.1)
[2020-05-10 06:19] LABS: Platelet Count 75 K/mcL (140-400)
[2020-05-10 06:37] LABS: Alanine Aminotransferase 12 Units/L (7-52); Albumin/Globulin Ratio 0.5 (1.1-2.2); Alkaline Phosphatase 111 Units/L (34-104); Aspartate Amino Transferase 45 Units/L (13-39); BUN/Creatinine Ratio 21 (6-26); Bilirubin,Total 5.7 mg/dL (0.3-1.0); Blood Urea Nitrogen 10 mg/dL (6-20); Calcium 7.6 mg/dL (8.6-10.3); Carbon Dioxide 25 mEq/L (23-29); Chloride 106 mEq/L (98-107); Globulin 3.9 g/dL (2.4-3.5); Glucose 62 mg/dL (70-105); Osmolality,Calculated 281 (280-300); Potassium 3.7 mEq/L (3.5-5.1); Sodium 137 mEq/L (136-145); Total Protein 5.9 g/dL (6.4-8.9); eGFR For African Americans > 60 (> 60); eGFR For Non-African Americans > 60 (> 60)
[2020-05-10 06:52] LABS: Macrocytosis Present (Not Present); Platelet Estimate Decreased (Normal)
[2020-05-10] MEDS: Pantoprazole 40 MG VIAL IVP SCH (08:59)
[2020-05-10] MEDS: cefTRIAXone 2,000 MG in 0.9 % Sodium Chloride Mini Bag 100 ML IVPB SCH (09:00)
[2020-05-10 13:32] LABS: Hematocrit 23.2 % (37.5-50.1); Hemoglobin 8.1 g/dL (12.9-16.9)
[2020-05-10] MEDS: Sucralfate 1 GM TABLET PO SCH (17:45)
[2020-05-10 18:44] LABS: Hematocrit 25.6 % (37.5-50.1); Hemoglobin 8.8 g/dL (12.9-16.9)
[2020-05-11] MEDS: Nicotine 14 MG PATCH.TD24 TD SCH (00:19)
[2020-05-11 05:32] LABS: Red Cell Distribution Width 17.2 % (11.5-14.5)
[2020-05-11 05:33] LABS: Prothrombin Time 22.3 Seconds (9.4-12.1)
[2020-05-11 05:35] LABS: Basophils # 0.1 K/mcL (0.0-0.2); Basophils % 0.8 %; Eosinophils # 0.2 K/mcL (0.0-0.6); Eosinophils % 2.1 %; Hematocrit 21.5 % (37.5-50.1); Hemoglobin 7.4 g/dL (12.9-16.9); Immature Granulocytes % 0.3 % (0-4); Immature Platelets 3.9 % (1.1-6.1); Lymphocytes # 2.3 K/mcL (0.6-4.6); Lymphocytes % 25.5 %; Mean Corpuscular HGB Conc 34.4 g/dL (31.6-35.5); Mean Corpuscular Hemoglobin 38.1 pg (28.0-33.3); Mean Corpuscular Volume 110.8 fL (83.0-100.0); Mean Platelet Volume 10.9 fL (9.4-12.4); Monocytes # 0.9 K/mcL (0.0-1.3); Monocytes % 10.3 %; Neutrophils # 5.4 K/mcL (1.6-8.9); Red Blood Count 1.94 M/mcL (4.19-5.50); White Blood Count 8.9 K/mcL (4.3-11.1)
[2020-05-11 05:51] LABS: Platelet Count 74 K/mcL (140-400)
[2020-05-11 05:57] LABS: Alanine Aminotransferase 10 Units/L (7-52); Albumin 1.9 g/dL (3.5-5.7); Albumin/Globulin Ratio 0.5 (1.1-2.2); Alkaline Phosphatase 125 Units/L (34-104); Aspartate Amino Transferase 38 Units/L (13-39); BUN/Creatinine Ratio 19 (6-26); Bilirubin,Total 2.9 mg/dL (0.3-1.0); Blood Urea Nitrogen 9 mg/dL (6-20); Calcium 7.4 mg/dL (8.6-10.3); Carbon Dioxide 23 mEq/L (23-29); Chloride 102 mEq/L (98-107); Globulin 3.7 g/dL (2.4-3.5); Glucose 108 mg/dL (70-105); Osmolality,Calculated 275 (280-300); Potassium 3.3 mEq/L (3.5-5.1); Sodium 133 mEq/L (136-145); Total Protein 5.6 g/dL (6.4-8.9); eGFR For African Americans > 60 (> 60); eGFR For Non-African Americans > 60 (> 60)
[2020-05-11 06:24] LABS: Platelet Estimate Decreased (Normal)
[2020-05-11] MEDS: Sucralfate 1 GM TABLET PO SCH ×2 (07:59→17:09)
[2020-05-11] MEDS: Pantoprazole 40 MG VIAL IVP SCH (07:59)
[2020-05-11] MEDS: cefTRIAXone 2,000 MG in 0.9 % Sodium Chloride Mini Bag 100 ML IVPB SCH (08:00)
[2020-05-11 12:36] LABS: Hematocrit 23.2 % (37.5-50.1); Hemoglobin 8.1 g/dL (12.9-16.9)
[2020-05-11] MEDS ORDERED: Pantoprazole 40 MG VIAL IVP SCH (18:00)
[2020-05-11 18:01] VITALS: BP 111/69
== END 2020-05-11 18:50 | disposition short-term general hospital (02) ==
LOC: 3ANU 15:34 → EMEROOARM 15:34 → SUATTDRO 20:50 → 3ANU 21:42
PROVIDERS: ADMIT Internal Medicine; ATTEND Family Medicine

== ENCOUNTER 2020-07-10 11:33 | Inpatient (IN) ==
[2020-07-10] MEDS ORDERED: 0.9 % Sodium Chloride 1,000 ML IVC ONE (11:39)
[2020-07-10 12:20] LABS: Eosinophils % 0.1 %; Mean Corpuscular HGB Conc 34.8 g/dL (31.6-35.5)
[2020-07-10 12:22] LABS: Basophils % 0.4 %; Hematocrit 30.2 % (37.5-50.1); Hemoglobin 10.5 g/dL (12.9-16.9); Immature Granulocytes % 0.3 % (0-4); Immature Platelets 5.2 % (1.1-6.1); Lymphocytes # 1.8 K/mcL (0.6-4.6); Mean Corpuscular Hemoglobin 32.6 pg (28.0-33.3); Mean Corpuscular Volume 93.8 fL (83.0-100.0); Mean Platelet Volume 11.2 fL (9.4-12.4); Monocytes # 0.5 K/mcL (0.0-1.3); Monocytes % 6.1 %; Neutrophils # 5.7 K/mcL (1.6-8.9); Red Blood Count 3.22 M/mcL (4.19-5.50); Red Cell Distribution Width 17.3 % (11.5-14.5); Segmented Neutrophils % 71.1 %
[2020-07-10 12:26] LABS: INR 2.1; Prothrombin Time 23.3 Seconds (9.4-12.1)
[2020-07-10 12:27] LABS: Platelet Count 65 K/mcL (140-400)
[2020-07-10] MEDS ORDERED: Ondansetron 4 MG/2 ML VIAL IVP ONE ×2 (12:35→15:39)
[2020-07-10] MEDS ORDERED: *HR* FentaNYL (PF) 100 MCG/2 ML VIAL IVP ONE ×3 (12:35→17:04)
[2020-07-10] MEDS ORDERED: Isovue-370 500 ML BOTTLE IVP ONE (12:43)
[2020-07-10 12:51] LABS: Alanine Aminotransferase 13 Units/L (7-52); Albumin 1.7 g/dL (3.5-5.7); Albumin/Globulin Ratio 0.3 (1.1-2.2); Alkaline Phosphatase 176 Units/L (34-104); Aspartate Amino Transferase 51 Units/L (13-39); BUN/Creatinine Ratio 7 (6-26); Bilirubin,Direct 1.7 mg/dL (0.0-0.2); Bilirubin,Indirect 2.2 mg/dL (0.0-1.0); Bilirubin,Total 3.9 mg/dL (0.3-1.0); Blood Urea Nitrogen 4 mg/dL (6-20); Calcium 7.5 mg/dL (8.6-10.3); Carbon Dioxide 29 mEq/L (23-29); Chloride 97 mEq/L (98-107); Glucose 84 mg/dL (70-105); Lipase 13 Units/L (11-82); Osmolality,Calculated 270 (280-300); Potassium 3.5 mEq/L (3.5-5.1); Sodium 132 mEq/L (136-145); Total Protein 6.7 g/dL (6.4-8.9); eGFR For African Americans > 60 (> 60); eGFR For Non-African Americans > 60 (> 60)
[2020-07-10 13:04] LABS: Troponin I < 0.03 ng/mL (< 0.04)
[2020-07-10 13:11] LABS: Bacteria,Urine Few per hpf (None-Few); Bilirubin,Urine Small (Negative); Blood,Urine Large (Negative); Budding Yeast,Urine Few per hpf (None Seen); Clarity,Urine Ex.Turbid (Clear); Color,Urine Dark-Orange (Yellow); Glucose,Urine (UA) Normal (Normal); Ketones,Urine Negative (Negative); Leukocyte Esterase,Urine Negative (Negative); Mucus,Urine Few per lpf (None-Few); Nitrite,Urine Negative (Negative); Protein,Urine 50 mg/dL (Neg-Trace); RBC,Urine TNTC per hpf (0-3); Squamous Epithelial Cell,Urine Few per hpf (None-Few)
[2020-07-10] MEDS ORDERED: Albumin Human 5% 12.5 GM/250 ML IV.SOLN IVC SCH (14:15)
[2020-07-10] MEDS ORDERED: cefTRIAXone 1,000 MG in 0.9 % Sodium Chloride Mini Bag 100 ML IVPB ONE (14:15)
[2020-07-10] MEDS ORDERED: Naloxone 0.4 MG/ML INJ IVP PRN (14:58)
[2020-07-10] MEDS: *HR* Heparin 5,000 UNIT/ML VIAL SQ SCH (20:18)
[2020-07-10] MEDS: Pantoprazole 40 MG VIAL IVP SCH (20:18)
[2020-07-11] MEDS ORDERED: 0.9 % Sodium Chloride 250 ML ONE (00:01)
[2020-07-11] MEDS ORDERED: Acetaminophen 325 MG TABLET PO PRN (04:00)
[2020-07-11 04:59] LABS: INR 2.2; Prothrombin Time 24.5 Seconds (9.4-12.1)
[2020-07-11 05:00] LABS: Immature Granulocytes % 0.4 % (0-4)
[2020-07-11 05:01] LABS: Basophils % 0.4 %; Eosinophils # 0.1 K/mcL (0.0-0.6); Eosinophils % 0.6 %; Hematocrit 25.6 % (37.5-50.1); Hemoglobin 8.6 g/dL (12.9-16.9); Lymphocytes # 2.2 K/mcL (0.6-4.6); Lymphocytes % 22.9 %; Mean Corpuscular HGB Conc 33.6 g/dL (31.6-35.5); Mean Corpuscular Hemoglobin 32.8 pg (28.0-33.3); Mean Corpuscular Volume 97.7 fL (83.0-100.0); Mean Platelet Volume 12.2 fL (9.4-12.4); Monocytes # 0.9 K/mcL (0.0-1.3); Monocytes % 9.2 %; Neutrophils # 6.3 K/mcL (1.6-8.9); Red Blood Count 2.62 M/mcL (4.19-5.50); Red Cell Distribution Width 17.7 % (11.5-14.5); Segmented Neutrophils % 66.5 %; White Blood Count 9.5 K/mcL (4.3-11.1)
[2020-07-11 05:11] LABS: Alanine Aminotransferase 10 Units/L (7-52); Albumin 1.7 g/dL (3.5-5.7); Albumin/Globulin Ratio 0.4 (1.1-2.2); Alkaline Phosphatase 123 Units/L (34-104); Aspartate Amino Transferase 41 Units/L (13-39); BUN/Creatinine Ratio 8 (6-26); Bilirubin,Total 2.9 mg/dL (0.3-1.0); Blood Urea Nitrogen 5 mg/dL (6-20); Calcium 7.5 mg/dL (8.6-10.3); Carbon Dioxide 29 mEq/L (23-29); Chloride 100 mEq/L (98-107); Globulin 4.3 g/dL (2.4-3.5); Glucose 161 mg/dL (70-105); Magnesium 1.4 mg/dL (1.6-2.6); Osmolality,Calculated 279 (280-300); Phosphorous 2.5 mg/dL (2.7-4.5); Potassium 3.6 mEq/L (3.5-5.1); Sodium 134 mEq/L (136-145); eGFR For African Americans > 60 (> 60); eGFR For Non-African Americans > 60 (> 60)
[2020-07-11 05:19] LABS: Platelet Count 55 K/mcL (140-400)
[2020-07-11] MEDS: *HR* Heparin 5,000 UNIT/ML VIAL SQ SCH ×2 (06:11→16:42)
[2020-07-11] MEDS: Furosemide 20 MG TABLET PO SCH (07:57)
[2020-07-11] MEDS: Pantoprazole 40 MG VIAL IVP SCH (07:57)
[2020-07-11] MEDS: Albumin 25% 25gram/100mL 25 GM/100 ML IV.SOLN IVPB SCH ×4 (10:25→20:45)
[2020-07-11] MEDS: cefTRIAXone 2,000 MG in Water for inj. (sterile) 20 ML IVP SCH (14:09)
[2020-07-11 17:08] LABS: Appearance of Peritoneal Fl CLEAR (Clear); Volume of Peritoneal Fluid 1.2 mL
[2020-07-12] MEDS: Nicotine 21 MG PATCH.TD24 TD SCH (02:44)
[2020-07-12] MEDS: *HR* Heparin 5,000 UNIT/ML VIAL SQ SCH (04:57)
[2020-07-12] MEDS: Furosemide 20 MG TABLET PO SCH ×2 (07:50→16:04)
[2020-07-12] MEDS: Pantoprazole 40 MG VIAL IVP SCH (07:59)
[2020-07-12] MEDS: Albumin 25% 25gram/100mL 25 GM/100 ML IV.SOLN IVPB SCH ×4 (07:59→23:01)
[2020-07-12] MEDS ORDERED: Magnesium Oxide 400 MG TABLET PO SCH (09:00)
[2020-07-12 10:17] LABS: Basophils % 0.4 %; Hematocrit 22.3 % (37.5-50.1); Immature Granulocytes % 0.3 % (0-4)
[2020-07-12 10:20] LABS: Eosinophils # 0.1 K/mcL (0.0-0.6); Eosinophils % 1.4 %; Hemoglobin 7.5 g/dL (12.9-16.9); Immature Platelets 8.3 % (1.1-6.1); Lymphocytes # 2.2 K/mcL (0.6-4.6); Lymphocytes % 31.8 %; Mean Corpuscular HGB Conc 33.6 g/dL (31.6-35.5); Mean Corpuscular Hemoglobin 32.9 pg (28.0-33.3); Mean Corpuscular Volume 97.8 fL (83.0-100.0); Mean Platelet Volume 12.6 fL (9.4-12.4); Monocytes # 0.6 K/mcL (0.0-1.3); Monocytes % 7.9 %; Nucleated Red Blood Cells 0.4 /100 WBC (0); Platelet Count 41 K/mcL (140-400); Red Blood Count 2.28 M/mcL (4.19-5.50); Red Cell Distribution Width 17.8 % (11.5-14.5); Segmented Neutrophils % 58.2 %; White Blood Count 6.9 K/mcL (4.3-11.1)
[2020-07-12 10:39] LABS: BUN/Creatinine Ratio 9 (6-26); Blood Urea Nitrogen 5 mg/dL (6-20); Calcium 7.8 mg/dL (8.6-10.3); Carbon Dioxide 31 mEq/L (23-29); Chloride 97 mEq/L (98-107); Glucose 172 mg/dL (70-105); Osmolality,Calculated 275 (280-300); Potassium 3.1 mEq/L (3.5-5.1); Sodium 132 mEq/L (136-145); eGFR For African Americans > 60 (> 60); eGFR For Non-African Americans > 60 (> 60)
[2020-07-12] MEDS: Ondansetron 4 MG/2 ML VIAL IVP PRN (12:59)
[2020-07-12] MEDS: cefTRIAXone 2,000 MG in Water for inj. (sterile) 20 ML IVP SCH (14:04)
[2020-07-13 06:19] LABS: Red Cell Distribution Width 17.8 % (11.5-14.5)
[2020-07-13 06:21] LABS: Basophils % 0.3 %; Eosinophils # 0.1 K/mcL (0.0-0.6); Eosinophils % 1.1 %; Hematocrit 24.9 % (37.5-50.1); Hemoglobin 8.6 g/dL (12.9-16.9); Immature Granulocytes % 0.5 % (0-4); Lymphocytes % 21.7 %; Mean Corpuscular HGB Conc 34.5 g/dL (31.6-35.5); Mean Corpuscular Hemoglobin 33.3 pg (28.0-33.3); Mean Corpuscular Volume 96.5 fL (83.0-100.0); Mean Platelet Volume 12.2 fL (9.4-12.4); Monocytes # 0.7 K/mcL (0.0-1.3); Monocytes % 7.5 %; Red Blood Count 2.58 M/mcL (4.19-5.50); Segmented Neutrophils % 68.9 %; White Blood Count 9.2 K/mcL (4.3-11.1)
[2020-07-13 06:35] LABS: Neutrophils # 6.3 K/mcL (1.6-8.9); Platelet Count 43 K/mcL (140-400)
[2020-07-13 06:53] LABS: BUN/Creatinine Ratio 6 (6-26); Blood Urea Nitrogen 4 mg/dL (6-20); Calcium 8.4 mg/dL (8.6-10.3); Carbon Dioxide 31 mEq/L (23-29); Chloride 94 mEq/L (98-107); Glucose 70 mg/dL (70-105); Osmolality,Calculated 269 (280-300); Potassium 3.4 mEq/L (3.5-5.1); Sodium 132 mEq/L (136-145); eGFR For African Americans > 60 (> 60); eGFR For Non-African Americans > 60 (> 60)
[2020-07-13 06:54] LABS: Magnesium 1.3 mg/dL (1.6-2.6); Phosphorous 2.2 mg/dL (2.7-4.5)
[2020-07-13] MEDS: Albumin 25% 25gram/100mL 25 GM/100 ML IV.SOLN IVPB SCH ×4 (07:55→21:15)
[2020-07-13] MEDS: Nicotine 21 MG PATCH.TD24 TD SCH (07:56)
[2020-07-13] MEDS: Pantoprazole 40 MG VIAL IVP SCH (07:56)
[2020-07-13] MEDS: Furosemide 20 MG TABLET PO SCH ×2 (07:56→17:59)
[2020-07-13] MEDS: Magnesium Oxide 400 MG TABLET PO SCH ×2 (08:08→19:24)
[2020-07-13] MEDS: cefTRIAXone 2,000 MG in Water for inj. (sterile) 20 ML IVP SCH (14:00)
[2020-07-13] MEDS: Acetaminophen 325 MG TABLET PO PRN (19:25)
[2020-07-13 22:31] LABS: Fluid Source for Albumin PERITONEAL FL
[2020-07-14] MEDS: Ondansetron 4 MG/2 ML VIAL IVP PRN (03:32)
[2020-07-14 06:12] LABS: Hematocrit 22.7 % (37.5-50.1); Hemoglobin 7.8 g/dL (12.9-16.9); Mean Corpuscular HGB Conc 34.4 g/dL (31.6-35.5); Red Cell Distribution Width 17.9 % (11.5-14.5)
[2020-07-14 06:14] LABS: Immature Platelets 9.5 % (1.1-6.1); Mean Corpuscular Hemoglobin 33.2 pg (28.0-33.3); Mean Corpuscular Volume 96.6 fL (83.0-100.0); Mean Platelet Volume 11.9 fL (9.4-12.4); Red Blood Count 2.35 M/mcL (4.19-5.50); White Blood Count 13.8 K/mcL (4.3-11.1)
[2020-07-14 06:32] LABS: BUN/Creatinine Ratio 6 (6-26); Blood Urea Nitrogen 5 mg/dL (6-20); Calcium 8.3 mg/dL (8.6-10.3); Carbon Dioxide 32 mEq/L (23-29); Chloride 91 mEq/L (98-107); Glucose 73 mg/dL (70-105); Magnesium 1.3 mg/dL (1.6-2.6); Osmolality,Calculated 270 (280-300); Phosphorous 2.8 mg/dL (2.7-4.5); Potassium 3.2 mEq/L (3.5-5.1); Sodium 132 mEq/L (136-145); eGFR For African Americans > 60 (> 60); eGFR For Non-African Americans > 60 (> 60)
[2020-07-14] MEDS: Furosemide 20 MG TABLET PO SCH ×2 (07:32→16:56)
[2020-07-14] MEDS: Acetaminophen 325 MG TABLET PO PRN (07:32)
[2020-07-14] MEDS: Nicotine 21 MG PATCH.TD24 TD SCH (07:32)
[2020-07-14] MEDS: Magnesium Oxide 400 MG TABLET PO SCH ×2 (07:33→21:41)
[2020-07-14] MEDS: Pantoprazole 40 MG VIAL IVP SCH (07:37)
[2020-07-14] MEDS: cefTRIAXone 2,000 MG in Water for inj. (sterile) 20 ML IVP SCH (16:54)
[2020-07-15] MEDS: Acetaminophen 325 MG TABLET PO PRN ×2 (00:03→10:31)
[2020-07-15] MEDS: Magnesium Oxide 400 MG TABLET PO SCH (07:42)
[2020-07-15] MEDS: Pantoprazole 40 MG VIAL IVP SCH (07:42)
[2020-07-15] MEDS: Furosemide 20 MG TABLET PO SCH (07:42)
[2020-07-15] MEDS: Nicotine 21 MG PATCH.TD24 TD SCH (07:43)
[2020-07-15 08:35] VITALS: BP 96/58
[2020-07-15 08:57] LABS: BUN/Creatinine Ratio 11 (6-26); Blood Urea Nitrogen 9 mg/dL (6-20); Calcium 8.4 mg/dL (8.6-10.3); Carbon Dioxide 32 mEq/L (23-29); Chloride 94 mEq/L (98-107); Glucose 67 mg/dL (70-105); Magnesium 1.5 mg/dL (1.6-2.6); Osmolality,Calculated 271 (280-300); Potassium 4.1 mEq/L (3.5-5.1); Sodium 132 mEq/L (136-145); eGFR For African Americans > 60 (> 60); eGFR For Non-African Americans > 60 (> 60)
== END 2020-07-15 11:36 | disposition home or self-care (01) | DRG 280 ==
LOC: 3ANU 11:33 → EMEROOARM 11:33 → SUATTDRO 14:59 → 3ANU 17:29 → 3BNU 23:26
PROVIDERS: ADMIT Family Medicine; ATTEND Internal Medicine

== ENCOUNTER 2020-08-12 12:46 | Inpatient (IN) ==
[2020-08-12] MEDS ORDERED: Ondansetron 4 MG/2 ML VIAL IVP ONE (12:56)
[2020-08-12] MEDS ORDERED: Isovue-370 500 ML BOTTLE IVP ONE (12:57)
[2020-08-12] MEDS ORDERED: 0.9 % Sodium Chloride 1,000 ML ONE (13:09)
[2020-08-12 13:29] LABS: Prothrombin Time 22.5 Seconds (9.4-12.1)
[2020-08-12 13:38] LABS: Alanine Aminotransferase 16 Units/L (7-52); Albumin 2.5 g/dL (3.5-5.7); Albumin/Globulin Ratio 0.7 (1.1-2.2); Alkaline Phosphatase 123 Units/L (34-104); Aspartate Amino Transferase 35 Units/L (13-39); BUN/Creatinine Ratio 8 (6-26); Bilirubin,Direct 0.7 mg/dL (0.0-0.2); Bilirubin,Total 1.7 mg/dL (0.3-1.0); Blood Urea Nitrogen 5 mg/dL (6-20); Calcium 7.8 mg/dL (8.6-10.3); Carbon Dioxide 28 mEq/L (23-29); Chloride 99 mEq/L (98-107); Globulin 3.4 g/dL (2.4-3.5); Glucose 193 mg/dL (70-105); Lipase 75 Units/L (11-82); Osmolality,Calculated 275 (280-300); Sodium 131 mEq/L (136-145); Total Protein 5.9 g/dL (6.4-8.9); Troponin I < 0.03 ng/mL (< 0.04); eGFR For African Americans > 60 (> 60); eGFR For Non-African Americans > 60 (> 60)
[2020-08-12 13:52] LABS: Basophils # 0.1 K/mcL (0.0-0.2); Eosinophils # 0.3 K/mcL (0.0-0.6); Eosinophils % 3.9 %; Hematocrit 25.8 % (37.5-50.1); Hemoglobin 8.2 g/dL (12.9-16.9); Immature Granulocytes % 0.4 % (0-4); Lymphocytes # 2.1 K/mcL (0.6-4.6); Lymphocytes % 27.8 %; Mean Corpuscular HGB Conc 31.8 g/dL (31.6-35.5); Mean Corpuscular Hemoglobin 32.8 pg (28.0-33.3); Mean Platelet Volume 10.9 fL (9.4-12.4); Monocytes % 13.1 %; Neutrophils # 4.1 K/mcL (1.6-8.9); Platelet Count 127 K/mcL (140-400); Red Cell Distribution Width 16.4 % (11.5-14.5); Segmented Neutrophils % 53.8 %; White Blood Count 7.7 K/mcL (4.3-11.1)
[2020-08-12 13:53] LABS: Mean Corpuscular Volume 103.2 fL (83.0-100.0)
[2020-08-12 14:10] LABS: Bacteria,Urine Few per hpf (None-Few); Bilirubin,Urine Negative (Negative); Blood,Urine Large (Negative); Clarity,Urine Turbid (Clear); Color,Urine Yellow (Yellow); Glucose,Urine (UA) Normal (Normal); Hyaline Casts,Urine Few per lpf (None Seen); Ketones,Urine Negative (Negative); Leukocyte Esterase,Urine Negative (Negative); Mucus,Urine Few per lpf (None-Few); Nitrite,Urine Negative (Negative); Protein,Urine 30 mg/dL (Neg-Trace); RBC,Urine TNTC per hpf (0-3); Specific Gravity,Urine 1.027 (1.010-1.025); Urobilinogen,Urine Normal (Normal); WBC,Urine 15-30 per hpf (0-3)
[2020-08-12] MEDS ORDERED: cefTRIAXone 1,000 MG in 0.9 % Sodium Chloride Mini Bag 100 ML IVPB ONE (15:23)
[2020-08-12] MEDS ORDERED: *HR* OxyCODONE/APAP 5/325 TABLET PO STA (15:38)
[2020-08-12] MEDS: Pantoprazole 40 MG VIAL IVP ONE ×2 (17:03→22:33)
[2020-08-12] MEDS ORDERED: Naloxone 0.4 MG/ML INJ IVP PRN (17:16)
[2020-08-12] MEDS ORDERED: Ondansetron 4 MG/2 ML VIAL IVP PRN (17:16)
[2020-08-12] MEDS ORDERED: *HR* Phytonadione 10 MG/ML AMPUL SQ ONE (17:18)
[2020-08-12] MEDS ORDERED: D5% in Water 1,000 ML IVC PRN (17:22)
[2020-08-12] MEDS ORDERED: Dextrose Gel 15 GM/37.5 ML TUBE PO PRN ×2 (17:22)
[2020-08-12] MEDS ORDERED: *HR* Dextrose 50 % in Water (Vial) 50 ML VIAL IVP PRN (17:22)
[2020-08-12] MEDS ORDERED: 0.9 % Sodium Chloride 250 ML ONE ×2 (18:20→21:33)
[2020-08-12] MEDS: Insulin LISPRO 300 UNITS/3 ML VIAL SQ SCH (18:28)
[2020-08-12] MEDS: Octreotide 400 MCG in 0.9 % Sodium Chloride 100 ML IVC SCH (19:03)
[2020-08-12] MEDS: *HR* OxyCODONE Immed Rel 5 MG TABLET PO PRN (19:53)
[2020-08-13] MEDS: Albumin 25% 25gram/100mL 25 GM/100 ML IV.SOLN IVPB SCH ×3 (00:39→15:36)
[2020-08-13] MEDS: Pantoprazole 40 MG VIAL IVP ONE ×4 (00:56→07:05)
[2020-08-13] MEDS: Sucralfate 1 GM TABLET PO SCH ×3 (01:11→20:03)
[2020-08-13] MEDS: Insulin LISPRO 300 UNITS/3 ML VIAL SQ SCH ×4 (01:32→16:02)
[2020-08-13] MEDS: Octreotide 400 MCG in 0.9 % Sodium Chloride 100 ML IVC SCH ×3 (03:02→18:51)
[2020-08-13 03:52] LABS: INR 2.1; Prothrombin Time 24.3 Seconds (9.4-12.1)
[2020-08-13 03:55] LABS: Activated Partial Thrombo Time 53.9 Seconds (26.0-36.0)
[2020-08-13 04:06] LABS: BUN/Creatinine Ratio 13 (6-26); Blood Urea Nitrogen 8 mg/dL (6-20); Calcium 8.1 mg/dL (8.6-10.3); Carbon Dioxide 26 mEq/L (23-29); Chloride 100 mEq/L (98-107); Glucose 103 mg/dL (70-105); Magnesium 1.5 mg/dL (1.6-2.6); Osmolality,Calculated 271 (280-300); Phosphorous 3.9 mg/dL (2.7-4.5); Sodium 131 mEq/L (136-145); eGFR For African Americans > 60 (> 60); eGFR For Non-African Americans > 60 (> 60)
[2020-08-13 06:43] LABS: Basophils # 0.1 K/mcL (0.0-0.2); Basophils % 1.2 %; Eosinophils # 0.2 K/mcL (0.0-0.6); Eosinophils % 3.1 %; Immature Granulocytes % 0.1 % (0-4); Lymphocytes # 2.4 K/mcL (0.6-4.6); Lymphocytes % 31.6 %; Mean Corpuscular HGB Conc 33.3 g/dL (31.6-35.5); Mean Corpuscular Hemoglobin 31.6 pg (28.0-33.3); Mean Corpuscular Volume 94.9 fL (83.0-100.0); Mean Platelet Volume 10.7 fL (9.4-12.4); Monocytes # 0.7 K/mcL (0.0-1.3); Monocytes % 9.5 %; Neutrophils # 4.1 K/mcL (1.6-8.9); Platelet Count 113 K/mcL (140-400); Red Blood Count 2.53 M/mcL (4.19-5.50); Red Cell Distribution Width 18.6 % (11.5-14.5); Segmented Neutrophils % 54.5 %; White Blood Count 7.5 K/mcL (4.3-11.1)
[2020-08-13] MEDS: Pantoprazole 40 MG in 0.9 % Sodium Chloride Mini Bag 100 ML IVC SCH ×6 (07:24→21:01)
[2020-08-13] MEDS: *HR* OxyCODONE Immed Rel 5 MG TABLET PO PRN ×3 (08:27→22:10)
[2020-08-13] MEDS: cefTRIAXone 1,000 MG in Water for inj. (sterile) 10 ML IVP SCH (08:27)
[2020-08-13] MEDS: Lactulose Oral Soln 20 GM/30 ML UDC PO SCH ×2 (11:10→20:03)
[2020-08-13] MEDS ORDERED: Magnesium Sulfate 1 GM/102 ML PIGGYBACK IVPB ONE (12:30)
[2020-08-13 16:48] LABS: Hematocrit 26.1 % (37.5-50.1); Hemoglobin 8.6 g/dL (12.9-16.9)
[2020-08-13] MEDS: levETIRAcetam 250 MG TABLET PO SCH (20:03)
[2020-08-14] MEDS: Insulin LISPRO 300 UNITS/3 ML VIAL SQ SCH ×4 (00:39→19:13)
[2020-08-14] MEDS: Octreotide 400 MCG in 0.9 % Sodium Chloride 100 ML IVC SCH ×2 (03:19→16:39)
[2020-08-14] MEDS: Pantoprazole 40 MG in 0.9 % Sodium Chloride Mini Bag 100 ML IVC SCH ×3 (04:49→16:40)
[2020-08-14] MEDS: *HR* OxyCODONE Immed Rel 5 MG TABLET PO PRN (04:53)
[2020-08-14] MEDS: Lactulose Oral Soln 20 GM/30 ML UDC PO SCH ×2 (07:42→21:36)
[2020-08-14] MEDS: cefTRIAXone 1,000 MG in Water for inj. (sterile) 10 ML IVP SCH (07:42)
[2020-08-14] MEDS: Ascorbic Acid 500 MG TABLET PO SCH (07:43)
[2020-08-14] MEDS: Thiamine (B-1) 100 MG TABLET PO SCH (07:43)
[2020-08-14] MEDS: levETIRAcetam 250 MG TABLET PO SCH ×2 (07:43→21:36)
[2020-08-14] MEDS: Sucralfate 1 GM TABLET PO SCH ×2 (07:43→21:36)
[2020-08-14 09:31] LABS: Basophils # 0.1 K/mcL (0.0-0.2); Basophils % 1.1 %; Eosinophils # 0.3 K/mcL (0.0-0.6); Eosinophils % 4.4 %; Hemoglobin 7.8 g/dL (12.9-16.9); Immature Granulocytes % 0.2 % (0-4); Lymphocytes % 30.9 %; Mean Corpuscular HGB Conc 32.5 g/dL (31.6-35.5); Mean Corpuscular Hemoglobin 31.6 pg (28.0-33.3); Mean Corpuscular Volume 97.2 fL (83.0-100.0); Mean Platelet Volume 10.7 fL (9.4-12.4); Monocytes # 0.6 K/mcL (0.0-1.3); Monocytes % 9.8 %; Neutrophils # 3.4 K/mcL (1.6-8.9); Platelet Count 108 K/mcL (140-400); Red Blood Count 2.47 M/mcL (4.19-5.50); Red Cell Distribution Width 17.6 % (11.5-14.5); Segmented Neutrophils % 53.6 %; White Blood Count 6.3 K/mcL (4.3-11.1)
[2020-08-14 10:26] LABS: BUN/Creatinine Ratio 12 (6-26); Blood Urea Nitrogen 7 mg/dL (6-20); Calcium 8.2 mg/dL (8.6-10.3); Carbon Dioxide 27 mEq/L (23-29); Chloride 101 mEq/L (98-107); Glucose 83 mg/dL (70-105); Magnesium 1.6 mg/dL (1.6-2.6); Osmolality,Calculated 271 (280-300); Phosphorous 2.8 mg/dL (2.7-4.5); Potassium 3.9 mEq/L (3.5-5.1); Sodium 132 mEq/L (136-145); eGFR For African Americans > 60 (> 60); eGFR For Non-African Americans > 60 (> 60)
[2020-08-14] MEDS ORDERED: Lidocaine -MPF 2% 5 ML VIAL SQ ONE (11:13)
[2020-08-14] MEDS ORDERED: *HR* Propofol 200 MG/20 ML VIAL IVP ONE (11:13)
[2020-08-14] MEDS ORDERED: EPHEDrine 50 MG/ML VIAL IVP ONE (11:13)
[2020-08-14] MEDS ORDERED: *HR* PHENYLEPHRINE 1,000 MCG/10 ML SYRINGE IVP ONE (14:01)
[2020-08-14 14:14] LABS: RBC,Peritoneal Fluid < 2000 RBC/mcL
[2020-08-14 14:24] LABS: Amylase,Peritoneal Fluid 16 Units/L (No Ref Range); Glucose,Peritoneal Fluid 89 mg/dL (No Ref Range); LDH,Peritoneal Fluid 42 Units/L (No Ref Range); Total Protein,Peritoneal Fluid < 2.0 g/dL
[2020-08-14 15:20] LABS: Appearance of Peritoneal Fl CLEAR (Clear)
[2020-08-14] MEDS: Nitrofurantoin (BID) 100 MG CAPSULE PO SCH (17:02)
[2020-08-14 18:07] LABS: Hematocrit 23.5 % (37.5-50.1); Hemoglobin 7.7 g/dL (12.9-16.9)
[2020-08-14] MEDS ORDERED: Insulin LISPRO 300 UNITS/3 ML VIAL SQ SCH (21:30)
[2020-08-15 01:35] LABS: Basophils # 0.1 K/mcL (0.0-0.2); Basophils % 1.3 %; Eosinophils # 0.3 K/mcL (0.0-0.6); Hematocrit 24.4 % (37.5-50.1); Hemoglobin 7.9 g/dL (12.9-16.9); Immature Granulocytes % 0.3 % (0-4); Lymphocytes # 2.3 K/mcL (0.6-4.6); Lymphocytes % 33.3 %; Mean Corpuscular HGB Conc 32.4 g/dL (31.6-35.5); Mean Corpuscular Hemoglobin 31.6 pg (28.0-33.3); Mean Corpuscular Volume 97.6 fL (83.0-100.0); Mean Platelet Volume 10.8 fL (9.4-12.4); Neutrophils # 3.3 K/mcL (1.6-8.9); Platelet Count 110 K/mcL (140-400); Red Cell Distribution Width 17.1 % (11.5-14.5); Segmented Neutrophils % 47.1 %; White Blood Count 6.9 K/mcL (4.3-11.1)
[2020-08-15 01:59] LABS: BUN/Creatinine Ratio 11 (6-26); Blood Urea Nitrogen 6 mg/dL (6-20); Calcium 8.4 mg/dL (8.6-10.3); Carbon Dioxide 29 mEq/L (23-29); Chloride 102 mEq/L (98-107); Glucose 39 mg/dL (70-105); Osmolality,Calculated 272 (280-300); Phosphorous 3.2 mg/dL (2.7-4.5); Potassium 3.6 mEq/L (3.5-5.1); Sodium 134 mEq/L (136-145); eGFR For African Americans > 60 (> 60); eGFR For Non-African Americans > 60 (> 60)
[2020-08-15] MEDS ORDERED: Acetaminophen IV 1,000 MG/100 ML BAG IVPB ONE (05:40)
[2020-08-15 07:25] VITALS: BP 95/60
[2020-08-15] MEDS ORDERED: Insulin LISPRO 300 UNITS/3 ML VIAL SQ SCH (07:30)
[2020-08-15] MEDS: Lactulose Oral Soln 20 GM/30 ML UDC PO SCH (08:08)
[2020-08-15] MEDS: Nitrofurantoin (BID) 100 MG CAPSULE PO SCH (08:08)
[2020-08-15] MEDS: Ascorbic Acid 500 MG TABLET PO SCH (08:08)
[2020-08-15] MEDS: Thiamine (B-1) 100 MG TABLET PO SCH (08:08)
[2020-08-15] MEDS: levETIRAcetam 250 MG TABLET PO SCH (08:09)
[2020-08-15] MEDS: Sucralfate 1 GM TABLET PO SCH (08:09)
[2020-08-15] MEDS: cefTRIAXone 1,000 MG in Water for inj. (sterile) 10 ML IVP SCH (08:10)
[2020-08-15 09:11] LABS: Hemoglobin 7.8 g/dL (12.9-16.9)
== END 2020-08-15 11:14 | disposition home health service (06) | DRG 241 ==
LOC: EMEROOARM 12:46 → 2ANU 12:46 → SUATTDRO 16:46 → 2ANU 17:20 → SUATTDRO 08-14 17:43
PROVIDERS: ADMIT Internal Medicine; ATTEND Family Medicine
PROC: ENDOEBX (2020-08-14 11:50)

== ENCOUNTER 2020-09-18 15:36 | Inpatient (IN) ==
[2020-09-18] MEDS ORDERED: 0.9 % Sodium Chloride 1,000 ML IVC ONE (16:09)
[2020-09-18] MEDS ORDERED: Isovue-370 500 ML BOTTLE IVP ONE (16:10)
[2020-09-18 18:17] LABS: INR 1.8
[2020-09-18 18:19] LABS: Activated Partial Thrombo Time 37.6 Seconds (26.0-36.0)
[2020-09-18 18:20] LABS: Basophils # 0.1 K/mcL (0.0-0.2); Eosinophils # 0.1 K/mcL (0.0-0.6); Eosinophils % 0.7 %; Hemoglobin 8.6 g/dL (12.9-16.9); Immature Granulocytes % 0.1 % (0-4); Lymphocytes # 1.7 K/mcL (0.6-4.6); Lymphocytes % 24.8 %; Mean Corpuscular HGB Conc 33.1 g/dL (31.6-35.5); Mean Corpuscular Hemoglobin 28.8 pg (28.0-33.3); Mean Platelet Volume 10.7 fL (9.4-12.4); Monocytes # 0.5 K/mcL (0.0-1.3); Monocytes % 6.7 %; Neutrophils # 4.6 K/mcL (1.6-8.9); Platelet Count 157 K/mcL (140-400); Red Blood Count 2.99 M/mcL (4.19-5.50); Red Cell Distribution Width 17.8 % (11.5-14.5); Segmented Neutrophils % 66.7 %; White Blood Count 6.9 K/mcL (4.3-11.1)
[2020-09-18 19:10] LABS: Alanine Aminotransferase 11 Units/L (7-52); Albumin/Globulin Ratio 0.4 (1.1-2.2); Alkaline Phosphatase 94 Units/L (34-104); Aspartate Amino Transferase 26 Units/L (13-39); BUN/Creatinine Ratio 12 (6-26); Bilirubin,Direct 0.8 mg/dL (0.0-0.2); Bilirubin,Indirect 1.5 mg/dL (0.0-1.0); Bilirubin,Total 2.3 mg/dL (0.3-1.0); Blood Urea Nitrogen 9 mg/dL (6-20); Calcium 8.2 mg/dL (8.6-10.3); Carbon Dioxide 23 mEq/L (23-29); Chloride 107 mEq/L (98-107); Ethanol < 10 mg/dL (Less than 10); Globulin 4.5 g/dL (2.4-3.5); Glucose 81 mg/dL (70-105); Osmolality,Calculated 282 (280-300); Potassium 4.3 mEq/L (3.5-5.1); Sodium 137 mEq/L (136-145); Thyroid Stimulating Hormone 0.864 mcIU/mL (0.340-5.600); Total Protein 6.5 g/dL (6.4-8.9); eGFR For African Americans > 60 (> 60); eGFR For Non-African Americans > 60 (> 60)
[2020-09-18 19:31] LABS: Troponin I < 0.03 ng/mL (< 0.04)
[2020-09-18 19:32] LABS: Bacteria,Urine Few per hpf (None-Few); Bilirubin,Urine Negative (Negative); Blood,Urine Large (Negative); Clarity,Urine Clear (Clear); Color,Urine Yellow (Yellow); Glucose,Urine (UA) Normal (Normal); Hyaline Casts,Urine Few per lpf (None Seen); Ketones,Urine Negative (Negative); Leukocyte Esterase,Urine Negative (Negative); Nitrite,Urine Negative (Negative); PH,Urine 8.5 pH Units (5.0-8.0); Protein,Urine 50 mg/dL (Neg-Trace); RBC,Urine TNTC per hpf (0-3); Specific Gravity,Urine 1.023 (1.010-1.025); Urobilinogen,Urine >=8.0 mg/dL (Normal)
[2020-09-18] MEDS ORDERED: Lactulose Oral Soln 20 GM/30 ML UDC PO ONE (19:33)
[2020-09-18 19:46] LABS: Amphetamine Screen,Urine Negative ng/mL (Cutoff=1000); Barbiturate Screen,Urine Negative ng/mL (Cutoff=200); Benzodiazepines Screen,Urine Negative ng/mL (Cutoff=200); Cannabinoid Screen,Urine Negative ng/mL (Cutoff = 50); Cocaine Screen,Urine Negative ng/mL (Cutoff= 300); Opiate Screen,Urine Negative ng/mL (Cutoff=300); Phencyclidine Screen,Urine Negative ng/mL (Cutoff=25)
[2020-09-18] MEDS ORDERED: cefTRIAXone 1,000 MG in 0.9 % Sodium Chloride Mini Bag 100 ML IVPB ONE (20:27)
[2020-09-18] MEDS ORDERED: Naloxone 0.4 MG/ML INJ IVP PRN (21:56)
[2020-09-18] MEDS: levETIRAcetam 250 MG TABLET PO SCH (22:29)
[2020-09-19 02:23] LABS: Hematocrit 25.1 % (37.5-50.1); Hemoglobin 8.2 g/dL (12.9-16.9); Mean Corpuscular HGB Conc 32.7 g/dL (31.6-35.5); Mean Corpuscular Hemoglobin 28.9 pg (28.0-33.3); Mean Corpuscular Volume 88.4 fL (83.0-100.0); Mean Platelet Volume 10.5 fL (9.4-12.4); Platelet Count 148 K/mcL (140-400); Red Blood Count 2.84 M/mcL (4.19-5.50); Red Cell Distribution Width 17.9 % (11.5-14.5); White Blood Count 7.9 K/mcL (4.3-11.1)
[2020-09-19 02:24] LABS: INR 1.7; Prothrombin Time 19.4 Seconds (9.4-12.1)
[2020-09-19 02:38] LABS: Alanine Aminotransferase 10 Units/L (7-52); Albumin 1.8 g/dL (3.5-5.7); Albumin/Globulin Ratio 0.4 (1.1-2.2); Alkaline Phosphatase 87 Units/L (34-104); Aspartate Amino Transferase 24 Units/L (13-39); BUN/Creatinine Ratio 12 (6-26); Bilirubin,Total 2.4 mg/dL (0.3-1.0); Blood Urea Nitrogen 9 mg/dL (6-20); Calcium 7.8 mg/dL (8.6-10.3); Carbon Dioxide 21 mEq/L (23-29); Chloride 109 mEq/L (98-107); Globulin 4.3 g/dL (2.4-3.5); Glucose 82 mg/dL (70-105); Osmolality,Calculated 284 (280-300); Potassium 4.1 mEq/L (3.5-5.1); Sodium 138 mEq/L (136-145); Total Protein 6.1 g/dL (6.4-8.9); eGFR For African Americans > 60 (> 60); eGFR For Non-African Americans > 60 (> 60)
[2020-09-19] MEDS: Thiamine (B-1) 100 MG TABLET PO SCH (08:12)
[2020-09-19] MEDS: Furosemide 40 MG TABLET PO SCH (08:12)
[2020-09-19] MEDS: Lactulose Oral Soln 20 GM/30 ML UDC PO SCH ×2 (08:13→22:22)
[2020-09-19] MEDS: cefTRIAXone 1,000 MG in Water for inj. (sterile) 10 ML IVP SCH (08:13)
[2020-09-19] MEDS: Ondansetron ODT 4 MG TAB.RAPDIS SL PRN (08:19)
[2020-09-19] MEDS: levETIRAcetam 250 MG TABLET PO SCH ×2 (09:46→22:23)
[2020-09-19] MEDS: (Lipase/Protease/Amylase [Creon Dr 24,000 Units Capsu PO SCH ×2 (16:17→17:06)
[2020-09-19] MEDS: *HR* OxyCODONE/APAP 5/325 TABLET PO PRN ×2 (17:13→22:23)
[2020-09-19] MEDS: Albumin 25% 25gram/100mL 25 GM/100 ML IV.SOLN IVPB SCH (17:14)
[2020-09-20] MEDS: Albumin 25% 25gram/100mL 25 GM/100 ML IV.SOLN IVPB SCH ×6 (00:05→18:26)
[2020-09-20] MEDS: *HR* OxyCODONE/APAP 5/325 TABLET PO PRN ×5 (02:45→21:21)
[2020-09-20 06:37] LABS: Basophils # 0.1 K/mcL (0.0-0.2); Basophils % 1.2 %; Eosinophils # 0.2 K/mcL (0.0-0.6); Eosinophils % 3.1 %; Hematocrit 20.3 % (37.5-50.1); Immature Granulocytes % 0.4 % (0-4); Lymphocytes # 3.1 K/mcL (0.6-4.6); Lymphocytes % 41.5 %; Mean Corpuscular HGB Conc 32.5 g/dL (31.6-35.5); Mean Corpuscular Hemoglobin 28.9 pg (28.0-33.3); Mean Platelet Volume 10.7 fL (9.4-12.4); Monocytes # 0.7 K/mcL (0.0-1.3); Monocytes % 9.1 %; Platelet Count 126 K/mcL (140-400); Red Blood Count 2.28 M/mcL (4.19-5.50); Red Cell Distribution Width 17.8 % (11.5-14.5); Segmented Neutrophils % 44.7 %; White Blood Count 7.5 K/mcL (4.3-11.1)
[2020-09-20 06:46] LABS: Hemoglobin 6.6 g/dL (12.9-16.9); Neutrophils # 3.4 K/mcL (1.6-8.9)
[2020-09-20 06:49] LABS: Platelet Estimate Normal (Normal)
[2020-09-20] MEDS: (Lipase/Protease/Amylase [Creon Dr 24,000 Units Capsu PO SCH ×4 (07:46→15:48)
[2020-09-20] MEDS: Thiamine (B-1) 100 MG TABLET PO SCH (07:46)
[2020-09-20] MEDS: cefTRIAXone 1,000 MG in Water for inj. (sterile) 10 ML IVP SCH (07:47)
[2020-09-20] MEDS: Lactulose Oral Soln 20 GM/30 ML UDC PO SCH ×2 (07:47→21:16)
[2020-09-20] MEDS: Furosemide 40 MG TABLET PO SCH (07:47)
[2020-09-20] MEDS: Cyanocobalamin (B-12) 1,000 MCG TABLET PO SCH (07:47)
[2020-09-20 07:58] LABS: Alanine Aminotransferase 8 Units/L (7-52); Albumin 2.2 g/dL (3.5-5.7); Albumin/Globulin Ratio 0.6 (1.1-2.2); Alkaline Phosphatase 67 Units/L (34-104); Aspartate Amino Transferase 19 Units/L (13-39); BUN/Creatinine Ratio 12 (6-26); Bilirubin,Total 1.2 mg/dL (0.3-1.0); Blood Urea Nitrogen 12 mg/dL (6-20); Calcium 8.3 mg/dL (8.6-10.3); Carbon Dioxide 23 mEq/L (23-29); Chloride 106 mEq/L (98-107); Globulin 3.5 g/dL (2.4-3.5); Glucose 221 mg/dL (70-105); Osmolality,Calculated 287 (280-300); Potassium 3.8 mEq/L (3.5-5.1); Sodium 135 mEq/L (136-145); Total Protein 5.7 g/dL (6.4-8.9); eGFR For African Americans > 60 (> 60); eGFR For Non-African Americans > 60 (> 60)
[2020-09-20] MEDS: levETIRAcetam 250 MG TABLET PO SCH ×2 (08:37→21:15)
[2020-09-20] MEDS: Ondansetron ODT 4 MG TAB.RAPDIS SL PRN (10:04)
[2020-09-20 10:08] LABS: INR 1.6; Prothrombin Time 18.6 Seconds (9.4-12.1)
[2020-09-20] MEDS ORDERED: 0.9 % Sodium Chloride 250 ML ONE ×2 (11:57→12:54)
[2020-09-20] MEDS ORDERED: cefTRIAXone 1,000 MG in Water for inj. (sterile) 10 ML IVP ONE (13:29)
[2020-09-20] MEDS ORDERED: Fosfomycin Tromethamine 3 GM Packet PO ONE (13:30)
[2020-09-20 13:37] LABS: RBC,Peritoneal Fluid < 2000 RBC/mcL
[2020-09-20 13:44] LABS: Appearance of Peritoneal Fl CLEAR (Clear)
[2020-09-20 14:04] LABS: Amylase,Peritoneal Fluid 30 Units/L (No Ref Range); Glucose,Peritoneal Fluid 180 mg/dL (No Ref Range); LDH,Peritoneal Fluid 32 Units/L (No Ref Range); Total Protein,Peritoneal Fluid < 2.0 g/dL
[2020-09-20 15:04] LABS: Basophils,Peritoneal Fluid 0 %; Eosinophils,Peritoneal Fluid 0 %
[2020-09-20] MEDS ORDERED: SODIUM CHLORIDE/NAHCO3/KCL/PEG 4,000 ML SOLN.RECON PO ONE (17:00)
[2020-09-20 18:45] LABS: Hemoglobin 8.9 g/dL (12.9-16.9)
[2020-09-21 02:24] LABS: Basophils # 0.1 K/mcL (0.0-0.2); Basophils % 0.9 %; Eosinophils # 0.3 K/mcL (0.0-0.6); Eosinophils % 4.3 %; Hematocrit 24.6 % (37.5-50.1); Hemoglobin 8.3 g/dL (12.9-16.9); Immature Granulocytes % 0.3 % (0-4); Lymphocytes # 2.7 K/mcL (0.6-4.6); Lymphocytes % 38.4 %; Mean Corpuscular HGB Conc 33.7 g/dL (31.6-35.5); Mean Corpuscular Hemoglobin 29.9 pg (28.0-33.3); Mean Corpuscular Volume 88.5 fL (83.0-100.0); Mean Platelet Volume 10.8 fL (9.4-12.4); Monocytes # 0.8 K/mcL (0.0-1.3); Monocytes % 11.4 %; Neutrophils # 3.2 K/mcL (1.6-8.9); Platelet Count 115 K/mcL (140-400); Red Blood Count 2.78 M/mcL (4.19-5.50); Red Cell Distribution Width 16.7 % (11.5-14.5); Segmented Neutrophils % 44.7 %
[2020-09-21 03:11] LABS: Alanine Aminotransferase 8 Units/L (7-52); Albumin 3.1 g/dL (3.5-5.7); Albumin/Globulin Ratio 1.1 (1.1-2.2); Alkaline Phosphatase 50 Units/L (34-104); Aspartate Amino Transferase 21 Units/L (13-39); BUN/Creatinine Ratio 11 (6-26); Bilirubin,Total 2.5 mg/dL (0.3-1.0); Blood Urea Nitrogen 7 mg/dL (6-20); Calcium 8.3 mg/dL (8.6-10.3); Carbon Dioxide 23 mEq/L (23-29); Chloride 106 mEq/L (98-107); Ferritin 958 ng/mL (20-250); Globulin 2.9 g/dL (2.4-3.5); Glucose 124 mg/dL (70-105); Iron 67 mcg/dL (65-175); Osmolality,Calculated 281 (280-300); Potassium 3.8 mEq/L (3.5-5.1); Sodium 136 mEq/L (136-145); Transferrin < 75 mg/dL (203-362); eGFR For African Americans > 60 (> 60); eGFR For Non-African Americans > 60 (> 60)
[2020-09-21] MEDS: *HR* OxyCODONE/APAP 5/325 TABLET PO PRN (03:29)
[2020-09-21] MEDS ORDERED: *HR* Dextrose 50 % in Water (Vial) 50 ML VIAL IVP ONE (07:19)
[2020-09-21] MEDS: (Lipase/Protease/Amylase [Creon Dr 24,000 Units Capsu PO SCH ×3 (07:41→11:56)
[2020-09-21] MEDS ORDERED: cefTRIAXone 2,000 MG in Water for inj. (sterile) 20 ML IVP SCH (09:00)
[2020-09-21] MEDS ORDERED: *HR* PHENYLEPHRINE 1,000 MCG/10 ML SYRINGE IVP ONE (11:14)
[2020-09-21] MEDS: levETIRAcetam 250 MG TABLET PO SCH (11:38)
[2020-09-21] MEDS: Lactulose Oral Soln 20 GM/30 ML UDC PO SCH (11:39)
[2020-09-21] MEDS: Thiamine (B-1) 100 MG TABLET PO SCH (11:39)
[2020-09-21] MEDS: Furosemide 40 MG TABLET PO SCH (11:39)
[2020-09-21] MEDS: Cyanocobalamin (B-12) 1,000 MCG TABLET PO SCH (11:39)
[2020-09-21] MEDS ORDERED: 0.9 % Sodium Chloride 500 ML IVC ONE (11:47)
[2020-09-21] MEDS ORDERED: 0.9 % Sodium Chloride 500 ML ONE (11:53)
[2020-09-21] MEDS: Albumin 25% 25gram/100mL 25 GM/100 ML IV.SOLN IVPB SCH ×2 (11:55→13:40)
[2020-09-21 15:36] VITALS: BP 89/54
== END 2020-09-21 16:12 | disposition home or self-care (01) | DRG 279 ==
LOC: 3BNU 15:36 → EMEROOARM 15:36 → SUATTDRO 21:47 → 3BNU 22:39
PROVIDERS: ADMIT Internal Medicine; ATTEND Internal Medicine